=== PATIENT | male | born 1965 ===

== ENCOUNTER 2017-10-25 01:39 | Inpatient (IN) | payer SELFPAY ==
[2017-10-25] MEDS ORDERED: Sodium Chloride 0.9% 1,000 ML IV ONE (02:21)
--- NOTE | 2017-10-25 02:27 | C.PDOC ---
History Of Present Illness 52 year old male presents to the ED complaining of abdominal pain onset 2-3 days ago, worsening since onset. Associated with multiple episodes of non- bilious non-bloody vomiting. Pain is localized to the epigastrium, non- radiating. No fever, chills, or diarrhea. Patient states pain is consistent with previous episodes of pancreatitis, last episode was 3-4 years ago. He denies recent alcohol use. Time Seen by Provider: 10/25/17 02:02 Chief Complaint (Nursing): Abdominal Pain History Per: Patient History/Exam Limitations: no limitations Onset/Duration Of Symptoms: Hrs Current Symptoms Are (Timing): Still Present Severity: Moderate Location Of Pain/Discomfort: Epigastric Radiation Of Pain To:: None Quality Of Discomfort: "Pain" Past Medical History Reviewed: Historical Data, Nursing Documentation, Vital Signs Vital Signs: Last Vital Signs Temp 98 F 10/25/17 01:52 Pulse 74 10/25/17 06:18 Resp 20 10/25/17 06:18 BP 133/89 10/25/17 06:18 Pulse Ox 99 10/25/17 06:26 - Medical History PMH: No Chronic Diseases, Pancreatitis Surgical History: No Surg Hx Family History: States: No Known Family Hx - Social History Hx Tobacco Use: No Hx Alcohol Use: No (quit 9 years ago) Hx Substance Use: No - Immunization History Hx Tetanus Toxoid Vaccination: No Hx Influenza Vaccination: No Hx Pneumococcal Vaccination: No Review Of Systems Except As Marked, All Systems Reviewed And Found Negative. Constitutional: Negative for: Fever, Chills Gastrointestinal: Positive for: Vomiting, Abdominal Pain. Negative for: Diarrhea, Hematochezia Physical Exam - Physical Exam Appears: Non-toxic, No Acute Distress Skin: Warm, Dry, No Rash Head: Atraumatic, Normacephalic Eye(s): bilateral: Normal Inspection, PERRL, EOMI Oral Mucosa: Moist Neck: Normal ROM, Supple Chest: Symmetrical Cardiovascular: Rhythm Regular, No Friction Rub, No Murmur Respiratory: Normal Breath Sounds, No Accessory Muscle Use, No Wheezing Gastrointestinal/Abdominal: Bowel Sounds (active), Soft, Tenderness (mild diffuse tenderness), No Guarding, No Rebound Back: Normal Inspection, No CVA Tenderness Extremity: Normal ROM, No Swelling Extremity: Bilateral: Atraumatic, Normal Color And Temperature, Normal ROM Neurological/Psych: Oriented x3, Normal Speech, Normal Motor Gait: Steady ED Course And Treatment - Laboratory Results Result Diagrams: 10/25/17 02:36 10/25/17 02:36 O2 Sat by Pulse Oximetry: 99 (RA) Pulse Ox Interpretation: Normal - Radiology CXR: Interpreted by Me, Viewed By Me CXR Interpretation: Yes: No Acute Disease, Other (No free air). No: Infiltrates - CT Scan/US CT abdomen/pelvis Other Rad Studies (CT/US): Read By Radiologist, Radiology Report Reviewed CT/US Interpretation: FINDINGS: Patient motion is present limiting exam. The liver is normal. The spleen is normal. The pancreas is normal. No gallstones. Probable cortical defect in the lateral left kidney. Evaluation limited by patient motion artifact. There. is a 1 cm hypoattenuating lesion in the left kidney and a 1.2 x 1.7 cm exophytic low attenuation right. renal lesion, both of which likely represent cysts however lesion on the right is slightly greater in. attenuation suggesting possible complex internal components. Short-term followup ultrasound is. recommended. There is haziness along the inferior aspect of the pancreatic head and anterior to the duodenum as it. crosses midline partially due to patient motion artifact however concurrent pancreatitis or duodenitis. would be possible. Recommend correlation with clinical symptoms and correlation with pancreatic. enzymes. The urinary bladder wall is circumferentially thickened a least partially due to under distention. Recommend correlation with urinalysis to exclude cystitis if clinically indicated. No aortic aneurysm or dissection. The bowel appears normal. A normal appendix is identified coronal images 55 through 60. IMPRESSION: Haziness adjacent to the pancreatic head and the duodenum partially due to patient motion artifact. however concurrent pancreatitis or duodenitis would be possible. Recommend correlation with clinical. symptoms and correlation with pancreatic enzymes. Thank you for allowing us to participate in the care of your patient. Dictated and Authenticated by: Monika Hines MD. 10/25/2017 6:01 AM Eastern Time ([place] & [place]) Medical Decision Making Medical Decision Making: Old records reviewed, patient has no prior history of visits to [facility]. Time: 2:21 Plan: * CMP * CBC * Lipase * Chest x-ray * Morphine 4 mg IVP * NS IV fluids * Protonix 40 mg IVP * Zofran 4 mg IVP 4:00 CT abdomen/pelvis ordered CT findings discussed with patient. On reevaluation patient is still complaining of pain. Given 2nd dose IV Morphine. CT scan shows probable pancreatitis. 6:[address] Hunter, who accepts patient for admission for acute pancreatitis. Disposition Discussed With Dr.: Edgar Hunter Doctor Will See Patient In The: Hospital Counseled Patient/Family Regarding: Studies Performed, Diagnosis - Disposition Disposition: HOSPITALIZED Disposition Time: 06:22 Condition: STABLE - Clinical Impression Clinical Impression: Acute pancreatitis - PA / FAMILY CONSUMER SCIENTIST / Resident Statement MD/DO has reviewed & agrees with the documentation as recorded. - Scribe Statement The provider has reviewed the documentation as recorded by the Scribe (Sendy Butt) All medical record entries made by the Scribe were at my direction and personally dictated by me. I have reviewed the chart and agree that the record accurately reflects my personal performance of the history, physical exam, medical decision making, and the department course for this patient. I have also personally directed, reviewed, and agree with the discharge instructions and disposition. Decision To Admit - Pt Status Changed To: Hospital Disposition Of: Inpatient - Admit Certification Admit to Inpatient:: After my assessment, the patient will require hospitalization for at least two midnights. This is because of the severity of symptoms shown, intensity of services needed, and/or the medical risk in this patient being treated as an outpatient. - InPatient: Physician Admission Certification:: acute pancreatitis - . Bed Request Type: Regular Patient Diagnosis: Acute pancreatitis
[2017-10-25] MEDS ORDERED: Morphine 4 MG/ML VIAL ONE ×2 (02:39→06:18)
[2017-10-25] MEDS ORDERED: Sodium Chloride 0.9% 250 ML IV ONE (02:39)
[2017-10-25 02:53] LABS: ALB/GLOB RATIO 0.9 (1.0-2.1); ALBUMIN 4.3 g/dL (3.5-5.0); ALT/SGPT 59 U/L (21-72); AST/SGOT 62 U/L (17-59); BLOOD UREA NITROGEN 15 mg/dL (9-20); CALCIUM 8.6 mg/dl (8.6-10.4); GFR AFRICAN-AMERICAN > 60; GFR NON-AFRICAN AMERICAN > 60; LIPASE 479 U/L (23-300)
[2017-10-25 02:58] LABS: BASO # 0.1 K/uL (0.0-0.2); BASO % 0.6 % (0.0-2.0); EOS # 0.3 K/uL (0.0-0.7); EOS % 1.5 % (0.0-4.0); HEMOGLOBIN 14.4 g/dL (12.0-18.0); LYMPH # 1.9 K/uL (1.0-4.3); MEAN CELL VOLUME 90.3 fL (80.0-94.0); MEAN CORPUSCULAR HEMOGLOBIN 32.3 pg (27.0-31.0); MEAN CORPUSCULAR HGB CONC 35.8 g/dL (33.0-37.0); MEAN PLATELET VOLUME 7.9 fL (7.2-11.7); MONO # 0.8 K/uL (0.0-0.8); MONO % 4.4 % (0.0-10.0); NEUT # 15.5 K/uL (1.8-7.0); NEUT % 83.5 % (50.0-75.0); RBC 4.47 Mil/uL (4.40-5.90); WHITE BLOOD COUNT 18.6 K/uL (4.8-10.8)
[2017-10-25] MEDS ORDERED: Sodium Chloride 0.9% 1,000 ML ONE (03:15)
[2017-10-25] MEDS ORDERED: Iodixanol 320 MG/ML 100 ML BOTTLE IV ONE (04:52)
--- NOTE | 2017-10-25 06:02 | CT ---
EXAM: CT Abdomen and Pelvis With Intravenous Contrast EXAM DATE/TIME: 10/25/2017 4:06 AM CLINICAL HISTORY: 52 years old, male; Pain; Abdominal pain; Epigastric; Additional info: Epi pain, HX of pancreatitis TECHNIQUE: Axial computed tomography images of the abdomen and pelvis with intravenous contrast. All CT scans at this facility use one or more dose reduction techniques, viz.: automated exposure control; ma/kV adjustment per patient size (including targeted exams where dose is matched to indication; i.e. head); or iterative reconstruction technique. Coronal and sagittal reformatted images were created and reviewed. CONTRAST: 100 mL of [id number] administered intravenously. COMPARISON: No relevant prior studies available. FINDINGS: Patient motion is present limiting exam. The liver is normal. The spleen is normal. The pancreas is normal. No gallstones. Probable cortical defect in the lateral left kidney. Evaluation limited by patient motion artifact. There is a 1 cm hypoattenuating lesion in the left kidney and a 1.2 x 1.7 cm exophytic low attenuation right renal lesion, both of which likely represent cysts however lesion on the right is slightly greater in attenuation suggesting possible complex internal components. Short-term followup ultrasound is recommended. There is haziness along the inferior aspect of the pancreatic head and anterior to the duodenum as it crosses midline partially due to patient motion artifact however concurrent pancreatitis or duodenitis would be possible. Recommend correlation with clinical symptoms and correlation with pancreatic enzymes. The urinary bladder wall is circumferentially thickened a least partially due to under distention Recommend correlation with urinalysis to exclude cystitis if clinically indicated. No aortic aneurysm or dissection. The bowel appears normal. A normal appendix is identified coronal images 55 through 60. IMPRESSION: Haziness adjacent to the pancreatic head and the duodenum partially due to patient motion artifact however concurrent pancreatitis or duodenitis would be possible. Recommend correlation with clinical symptoms and correlation with pancreatic enzymes.
[2017-10-25 06:19] VITALS: RESP 20
[2017-10-25] MEDS ORDERED: Morphine 4 MG/ML VIAL IVP PRN ×2 (07:36→07:37)
[2017-10-25] MEDS ORDERED: Sodium Chloride 0.9% 1,000 ML IV SCH (07:45)
[2017-10-25] MEDS ORDERED: Lactated Ringer's 1,000 ML IV ONE (07:50)
--- NOTE | 2017-10-25 08:28 | RAD ---
Chest x-ray single frontal view History: Chest pain. Comparison: 10/26/2017 Findings: Mild venous congestion. Heart size within normal limits. Degenerative changes in the spine. Impression: Mild venous congestion.
--- NOTE | 2017-10-25 08:29 | CP.PCM.HP ---
<Grzegorz Donovan - Last Filed: 10/25/17 17:55> History of Present Illness - History of Present Illness History of Present Illness: Medicine H/P HPI: Patient is a 52M with a PMH of chronic pancreatitis and ETOH use in the remote past comes to the ED with a CC of abdominal pain. States the pain began yesterday in the late afternoon. States usually when he has this pain he is able top "ride it out" at home but this time the pain was too much so he came to the ED. The pain is diffuse in his abdomen and is associated with multiple episodes of nonbloody emesis. The pain does not radiate. No associated symptoms. Patient has several prior episode pof chronic pancreatitis. CT in the ED shows peripancreatic inflammation consistent with pancreatitis. PMH: Chronic pancreatitis PSH: remote history of hernia repair FH: unremarkable SH: Denies smoking, denies drinking, smokes marijuana occasionally Meds: None All: NKA Present on Admission - Present on Admission Any Indicators Present on Admission: No Past Patient History - Past Social History Smoking Status: Never Smoked - CARDIAC Hx Cardiac Disorders: No - PULMONARY Hx Respiratory Disorders: No - NEUROLOGICAL Hx Neurological Disorder: No - GASTROINTESTINAL Hx Pancreatitis: Yes - GENITOURINARY/GYNECOLOGICAL Hx Genitourinary Disorders: No - PSYCHIATRIC Hx Substance Use: No - SURGICAL HISTORY Hx Surgeries: No - ANESTHESIA Hx Anesthesia: No Meds Allergies/Adverse Reactions: Allergies Allergy/AdvReac Type Severity Reaction Status Date / Time No Known Allergies Allergy Verified 10/25/17 01:58 Physical Exam - Constitutional Appears: Well - Head Exam Head Exam: ATRAUMATIC, NORMAL INSPECTION, NORMOCEPHALIC - Eye Exam Eye Exam: EOMI, Normal appearance, PERRL Pupil Exam: NORMAL ACCOMODATION, PERRL - ENT Exam ENT Exam: Mucous Membranes Moist, Normal Exam - Neck Exam Neck exam: Positive for: Normal Inspection - Respiratory Exam Respiratory Exam: Clear to Auscultation Bilateral, NORMAL BREATHING PATTERN - Cardiovascular Exam Cardiovascular Exam: REGULAR RHYTHM - GI/Abdominal Exam GI & Abdominal Exam: Normal Bowel Sounds, Soft, Tenderness (diffuse tenderness to deep palpaption) - Extremities Exam Extremities exam: Positive for: normal inspection - Back Exam Back exam: NORMAL INSPECTION - Neurological Exam Neurological exam: Alert, CN II-XII Intact, Normal Gait, Oriented x3, Reflexes Normal - Psychiatric Exam Psychiatric exam: Normal Affect, Normal Mood - Skin Skin Exam: Dry, Intact, Normal Color, Warm Results - Vital Signs Recent Vital Signs: Last Vital Signs Temp 97.7 F 10/25/17 07:30 Pulse 60 10/25/17 07:30 Resp 20 10/25/17 07:30 BP 104/70 10/25/17 07:30 Pulse Ox 97 10/25/17 07:30 - Labs Result Diagrams: 10/25/17 02:36 10/25/17 02:36 Labs: Laboratory Results - last 24 hr 10/25/17 10/25/17 02:36 02:36 WBC 18.6 H RBC 4.47 Hgb 14.4 Hct 40.4 MCV 90.3 MCH 32.3 H MCHC 35.8 RDW 13.0 Plt Count 315 MPV 7.9 Neut % (Auto) 83.5 H Lymph % (Auto) 10.0 L Power % (Auto) 4.4 Eos % (Auto) 1.5 Baso % (Auto) 0.6 Neut # (Auto) 15.5 H Lymph # (Auto) 1.9 Power # (Auto) 0.8 Eos # (Auto) 0.3 Baso # (Auto) 0.1 Sodium 141 Potassium 5.1 Chloride 106 Carbon Dioxide 19 L Anion Gap 21 H BUN 15 Creatinine 1.0 Est GFR ( Amer) > 60 Est GFR (Non-Af Amer) > 60 Random Glucose 109 Calcium 8.6 Total Bilirubin 1.5 H AST 62 H ALT 59 Alkaline Phosphatase 110 Total Protein 9.2 H Albumin 4.3 Globulin 4.9 H Albumin/Globulin Ratio 0.9 L Lipase 479 H Assessment & Plan (1) Acute pancreatitis Assessment and Plan: LR @ 250 NPO Refuses RUQ US F/U Lipid panel Denies ETOH Use Morphine for pain control trend lipase Status: Acute Priority: Medium (2) Prophylactic measure Assessment and Plan: GI ppx not indicated SCD Lovenox 30 Q12 Status: Acute <Gilles Tomlinson - Last Filed: 10/26/17 19:13> Results - Vital Signs Recent Vital Signs: Last Vital Signs Temp 98.2 F 10/26/17 15:00 Pulse 66 10/26/17 15:00 Resp 20 10/26/17 15:00 BP 116/72 10/26/17 15:00 Pulse Ox 98 10/26/17 15:00 - Labs Result Diagrams: 10/26/17 07:03 10/26/17 07:03 Labs: Laboratory Results - last 24 hr 10/26/17 10/26/17 10/26/17 07:03 07:03 07:03 WBC 11.8 H RBC 3.99 L Hgb 12.5 Hct 36.0 MCV 90.1 MCH 31.4 H MCHC 34.8 RDW 12.9 Plt Count 275 MPV 7.5 Neut % (Auto) 70.6 Lymph % (Auto) 20.2 Power % (Auto) 6.2 Eos % (Auto) 2.8 Baso % (Auto) 0.2 Neut # (Auto) 8.4 H Lymph # (Auto) 2.4 Power # (Auto) 0.7 Eos # (Auto) 0.3 Baso # (Auto) 0.0 Sodium 139 Potassium 3.7 Chloride 104 Carbon Dioxide 22 Anion Gap 16 BUN 9 Creatinine 0.9 Est GFR ( Amer) > 60 Est GFR (Non-Af Amer) > 60 POC Glucose (mg/dL) Random Glucose 96 Hemoglobin A1c 4.9 Calcium 8.5 L Phosphorus 2.9 Magnesium 1.8 Total Bilirubin 1.0 AST 30 ALT 40 Alkaline Phosphatase 94 Total Protein 6.7 Albumin 3.5 Globulin 3.3 Albumin/Globulin Ratio 1.1 Amylase 128 H Lipase 267 TSH 3rd Generation 1.91 Alcohol, Quantitative < 10 10/26/17 11:14 WBC RBC Hgb Hct MCV MCH MCHC RDW Plt Count MPV Neut % (Auto) Lymph % (Auto) Power % (Auto) Eos % (Auto) Baso % (Auto) Neut # (Auto) Lymph # (Auto) Power # (Auto) Eos # (Auto) Baso # (Auto) Sodium Potassium Chloride Carbon Dioxide Anion Gap BUN Creatinine Est GFR ( Amer) Est GFR (Non-Af Amer) POC Glucose (mg/dL) 88 Random Glucose Hemoglobin A1c Calcium Phosphorus Magnesium Total Bilirubin AST ALT Alkaline Phosphatase Total Protein Albumin Globulin Albumin/Globulin Ratio Amylase Lipase TSH 3rd Generation Alcohol, Quantitative Attending/Attestation - Attestation I have personally seen and examined this patient.: Yes I have fully participated in the care of the patient.: Yes I have reviewed all pertinent clinical information: Yes Notes (Text): Patient was seen and examined Patient relates his pancreatitis due to too much fatty food. History of alcohol use. He states that he stop drinking alcohol. Refuses US. Refuses further work up,"I will be ok,I was doing good last 4 years after his last pancreatitis." He wants to try food and go home when his pain is better.He doesn't want to see GI.He will not go for EGD Discussed about following at medical clinic and get GI evaluation I agree with the recommendation of the resident documentation of the assessment and the plan
[2017-10-25 10:10] LABS: HDL CHOLESTEROL 37 mg/dL (30-70)
[2017-10-25 10:20] LABS: LDL CHOLESTEROL 30 mg/dL (0-129)
[2017-10-25] MEDS: Lactated Ringer's 1,000 ML IV SCH ×4 (10:57→20:00)
[2017-10-25] MEDS: Enoxaparin 30 mg Syringe SC SCH ×2 (10:58→22:16)
[2017-10-25 14:45] LABS: HEPATITIS B SURFACE AG Negative (NEGATIVE)
[2017-10-25 14:52] LABS: HEPATITIS A IGM NEGATIVE (NEGATIVE); HEPATITIS B CORE AB NEGATIVE (NEGATIVE)
[2017-10-25 15:02] LABS: HEPATITIS C ANTIBODY NEGATIVE (NEGATIVE)
[2017-10-26] MEDS: Lactated Ringer's 1,000 ML IV SCH ×3 (00:30→08:00)
[2017-10-26 07:37] LABS: BASO % 0.2 % (0.0-2.0); EOS # 0.3 K/uL (0.0-0.7); EOS % 2.8 % (0.0-4.0); LYMPH # 2.4 K/uL (1.0-4.3); LYMPH % 20.2 % (20.0-40.0); MEAN CELL VOLUME 90.1 fL (80.0-94.0); MEAN CORPUSCULAR HEMOGLOBIN 31.4 pg (27.0-31.0); MEAN CORPUSCULAR HGB CONC 34.8 g/dL (33.0-37.0); MEAN PLATELET VOLUME 7.5 fL (7.2-11.7); MONO # 0.7 K/uL (0.0-0.8); MONO % 6.2 % (0.0-10.0); NEUT # 8.4 K/uL (1.8-7.0); NEUT % 70.6 % (50.0-75.0); NRBC % 0.1 % (0.0-2.0); RBC 3.99 Mil/uL (4.40-5.90); RED CELL DISTRIBUTION WIDTH 12.9 % (11.5-14.5); WHITE BLOOD COUNT 11.8 K/uL (4.8-10.8)
[2017-10-26 07:40] LABS: HEMOGLOBIN 12.5 g/dL (12.0-18.0)
[2017-10-26 07:41] LABS: ALB/GLOB RATIO 1.1 (1.0-2.1); ALBUMIN 3.5 g/dL (3.5-5.0); ALT/SGPT 40 U/L (21-72); AMYLASE 128 U/L (30-110); AST/SGOT 30 U/L (17-59); BLOOD UREA NITROGEN 9 mg/dL (9-20); CALCIUM 8.5 mg/dl (8.6-10.4); GFR AFRICAN-AMERICAN > 60; GFR NON-AFRICAN AMERICAN > 60; LIPASE 267 U/L (23-300)
[2017-10-26] MEDS ORDERED: Lactated Ringer's 1,000 ML IV SCH (09:23)
[2017-10-26] MEDS: Enoxaparin 30 mg Syringe SC SCH (10:41)
--- NOTE | 2017-10-26 12:58 | CP.PCM.DIS ---
<Grzegorz Donovan - Last Filed: 10/26/17 13:14> Provider - Provider Date of Admission: 10/25/17 06:21 Attending physician: Edgar Hunter MD Primary care physician: Clinic Consults: None Time Spent in preparation of Discharge (in minutes): 45 Diagnosis - Discharge Diagnosis (1) Acute pancreatitis Status: Resolved Priority: Medium (2) Prophylactic measure Status: Acute Hospital Course - Lab Results Lab Results: Most Recent Lab Values WBC 11.8 K/uL (4.8-10.8) H 10/26/17 07:03 RBC 3.99 Mil/uL (4.40-5.90) L 10/26/17 07:03 Hgb 12.5 g/dL (12.0-18.0) 10/26/17 07:03 Hct 36.0 % (35.0-51.0) 10/26/17 07:03 MCV 90.1 fL (80.0-94.0) 10/26/17 07:03 MCH 31.4 pg (27.0-31.0) H 10/26/17 07:03 MCHC 34.8 g/dL (33.0-37.0) 10/26/17 07:03 RDW 12.9 % (11.5-14.5) 10/26/17 07:03 Plt Count 275 K/uL (130-400) 10/26/17 07:03 MPV 7.5 fL (7.2-11.7) 10/26/17 07:03 Neut % (Auto) 70.6 % (50.0-75.0) 10/26/17 07:03 Lymph % (Auto) 20.2 % (20.0-40.0) 10/26/17 07:03 [place] % (Auto) 6.2 % (0.0-10.0) 10/26/17 07:03 Eos % (Auto) 2.8 % (0.0-4.0) 10/26/17 07:03 Baso % (Auto) 0.2 % (0.0-2.0) 10/26/17 07:03 Neut # (Auto) 8.4 K/uL (1.8-7.0) H 10/26/17 07:03 Lymph # (Auto) 2.4 K/uL (1.0-4.3) 10/26/17 07:03 [place] # (Auto) 0.7 K/uL (0.0-0.8) 10/26/17 07:03 Eos # (Auto) 0.3 K/uL (0.0-0.7) 10/26/17 07:03 Baso # (Auto) 0.0 K/uL (0.0-0.2) 10/26/17 07:03 Sodium 139 mmol/L (132-148) 10/26/17 07:03 Potassium 3.7 mmol/L (3.6-5.2) 10/26/17 07:03 Chloride 104 mmol/L (98-107) 10/26/17 07:03 Carbon Dioxide 22 mmol/L (22-30) 10/26/17 07:03 Anion Gap 16 (10-20) 10/26/17 07:03 BUN 9 mg/dL (9-20) 10/26/17 07:03 Creatinine 0.9 mg/dL (0.8-1.5) 10/26/17 07:03 Est GFR ( Amer) > 60 10/26/17 07:03 Est GFR (Non-Af Amer) > 60 10/26/17 07:03 POC Glucose (mg/dL) 88 mg/dL (65-110) 10/26/17 11:14 Random Glucose 96 mg/dL (75-110) 10/26/17 07:03 Hemoglobin A1c 4.9 % (4.2-6.5) 10/26/17 07:03 Calcium 8.5 mg/dl (8.6-10.4) L 10/26/17 07:03 Phosphorus 2.9 mg/dL (2.5-4.5) 10/26/17 07:03 Magnesium 1.8 mg/dL (1.6-2.3) 10/26/17 07:03 Total Bilirubin 1.0 mg/dL (0.2-1.3) 10/26/17 07:03 AST 30 U/L (17-59) 10/26/17 07:03 ALT 40 U/L (21-72) 10/26/17 07:03 Alkaline Phosphatase 94 U/L (38-126) 10/26/17 07:03 Lactate Dehydrogenase 978 U/L (313-618) H 10/25/17 02:36 Total Protein 6.7 g/dL (6.3-8.3) 10/26/17 07:03 Albumin 3.5 g/dL (3.5-5.0) 10/26/17 07:03 Globulin 3.3 gm/dL (2.2-3.9) 10/26/17 07:03 Albumin/Globulin Ratio 1.1 (1.0-2.1) 10/26/17 07:03 Triglycerides 2324 mg/dL (0-149) H 10/25/17 02:36 Cholesterol 318 mg/dL (0-199) H 10/25/17 02:36 LDL Cholesterol Direct 30 mg/dL (0-129) 10/25/17 02:36 HDL Cholesterol 37 mg/dL (30-70) 10/25/17 02:36 Amylase 128 U/L (30-110) H 10/26/17 07:03 Lipase 267 U/L (23-300) 10/26/17 07:03 TSH 3rd Generation 1.91 mIU/L (0.46-4.68) 10/26/17 07:03 Alcohol, Quantitative < 10 mg/dl (0-10) 10/26/17 07:03 Hepatitis A IgM Ab Negative (NEGATIVE) 10/25/17 13:50 Hep Bs Antigen Negative (NEGATIVE) 10/25/17 13:50 Hep B Core IgM Ab Negative (NEGATIVE) 10/25/17 13:50 Hepatitis C Antibody Negative (NEGATIVE) 10/25/17 13:50 - Hospital Course Hospital Course: Patient is a 52M with a PMH of chronic pancreatitis and ETOH use in the remote past comes to the ED with a CC of abdominal pain. States the pain began yesterday in the late afternoon. States usually when he has this pain he is able top "ride it out" at home but this time the pain was too much so he came to the ED. The pain is diffuse in his abdomen and is associated with multiple episodes of nonbloody emesis. The pain does not radiate. No associated symptoms. Patient has several prior episode pof chronic pancreatitis. CT in the ED shows peripancreatic inflammation consistent with pancreatitis. Patient was started on fluids and kept NPO. Patient started on CLD for which he tolerated well. Patient refused ultrasound of the RUQ. Patient instructed to follow up in clinic for LFTS, and GI referral for pancreatitis. The remainder of his stay was uncomplicated. He denies any smoking, drinking. Discharge Exam - Head Exam Head Exam: ATRAUMATIC, NORMAL INSPECTION, NORMOCEPHALIC - Eye Exam Eye Exam: EOMI, Normal appearance, PERRL Pupil Exam: NORMAL ACCOMODATION, PERRL - GI/Abdominal Exam GI & Abdominal Exam: Normal Bowel Sounds - Neurological Exam Neurological exam: Alert, CN II-XII Intact, Normal Gait, Oriented x3, Reflexes Normal - Psychiatric Exam Psychiatric exam: Normal Affect, Normal Mood - Skin Skin Exam: Dry, Intact, Normal Color, Warm Discharge Plan - Follow Up Plan Condition: STABLE Disposition: HOME/ ROUTINE Instructions: Pancreatitis (DC) Additional Instructions: Please follow up in our clinic in 7-10 days for LFTs, GI referral for Pancreatits. I have attached the information for the clinic. Please call to make an appointment. Please come back to the ED if symptoms return Referrals: [facility] [Outside] <Gilles Tomlinson - Last Filed: 10/26/17 19:15> Provider - Provider Date of Admission: 10/25/17 06:21 Attending physician: Edgar Hunter MD Hospital Course - Lab Results Lab Results: Most Recent Lab Values WBC 11.8 K/uL (4.8-10.8) H 10/26/17 07:03 RBC 3.99 Mil/uL (4.40-5.90) L 10/26/17 07:03 Hgb 12.5 g/dL (12.0-18.0) 10/26/17 07:03 Hct 36.0 % (35.0-51.0) 10/26/17 07:03 MCV 90.1 fL (80.0-94.0) 10/26/17 07:03 MCH 31.4 pg (27.0-31.0) H 10/26/17 07:03 MCHC 34.8 g/dL (33.0-37.0) 10/26/17 07:03 RDW 12.9 % (11.5-14.5) 10/26/17 07:03 Plt Count 275 K/uL (130-400) 10/26/17 07:03 MPV 7.5 fL (7.2-11.7) 10/26/17 07:03 Neut % (Auto) 70.6 % (50.0-75.0) 10/26/17 07:03 Lymph % (Auto) 20.2 % (20.0-40.0) 10/26/17 07:03 [place] % (Auto) 6.2 % (0.0-10.0) 10/26/17 07:03 Eos % (Auto) 2.8 % (0.0-4.0) 10/26/17 07:03 Baso % (Auto) 0.2 % (0.0-2.0) 10/26/17 07:03 Neut # (Auto) 8.4 K/uL (1.8-7.0) H 10/26/17 07:03 Lymph # (Auto) 2.4 K/uL (1.0-4.3) 10/26/17 07:03 [place] # (Auto) 0.7 K/uL (0.0-0.8) 10/26/17 07:03 Eos # (Auto) 0.3 K/uL (0.0-0.7) 10/26/17 07:03 Baso # (Auto) 0.0 K/uL (0.0-0.2) 10/26/17 07:03 Sodium 139 mmol/L (132-148) 10/26/17 07:03 Potassium 3.7 mmol/L (3.6-5.2) 10/26/17 07:03 Chloride 104 mmol/L (98-107) 10/26/17 07:03 Carbon Dioxide 22 mmol/L (22-30) 10/26/17 07:03 Anion Gap 16 (10-20) 10/26/17 07:03 BUN 9 mg/dL (9-20) 10/26/17 07:03 Creatinine 0.9 mg/dL (0.8-1.5) 10/26/17 07:03 Est GFR ( Amer) > 60 10/26/17 07:03 Est GFR (Non-Af Amer) > 60 10/26/17 07:03 POC Glucose (mg/dL) 88 mg/dL (65-110) 10/26/17 11:14 Random Glucose 96 mg/dL (75-110) 10/26/17 07:03 Hemoglobin A1c 4.9 % (4.2-6.5) 10/26/17 07:03 Calcium 8.5 mg/dl (8.6-10.4) L 10/26/17 07:03 Phosphorus 2.9 mg/dL (2.5-4.5) 10/26/17 07:03 Magnesium 1.8 mg/dL (1.6-2.3) 10/26/17 07:03 Total Bilirubin 1.0 mg/dL (0.2-1.3) 10/26/17 07:03 AST 30 U/L (17-59) 10/26/17 07:03 ALT 40 U/L (21-72) 10/26/17 07:03 Alkaline Phosphatase 94 U/L (38-126) 10/26/17 07:03 Lactate Dehydrogenase 978 U/L (313-618) H 10/25/17 02:36 Total Protein 6.7 g/dL (6.3-8.3) 10/26/17 07:03 Albumin 3.5 g/dL (3.5-5.0) 10/26/17 07:03 Globulin 3.3 gm/dL (2.2-3.9) 10/26/17 07:03 Albumin/Globulin Ratio 1.1 (1.0-2.1) 10/26/17 07:03 Triglycerides 2324 mg/dL (0-149) H 10/25/17 02:36 Cholesterol 318 mg/dL (0-199) H 10/25/17 02:36 LDL Cholesterol Direct 30 mg/dL (0-129) 10/25/17 02:36 HDL Cholesterol 37 mg/dL (30-70) 10/25/17 02:36 Amylase 128 U/L (30-110) H 10/26/17 07:03 Lipase 267 U/L (23-300) 10/26/17 07:03 TSH 3rd Generation 1.91 mIU/L (0.46-4.68) 10/26/17 07:03 Alcohol, Quantitative < 10 mg/dl (0-10) 10/26/17 07:03 Hepatitis A IgM Ab Negative (NEGATIVE) 10/25/17 13:50 Hep Bs Antigen Negative (NEGATIVE) 10/25/17 13:50 Hep B Core IgM Ab Negative (NEGATIVE) 10/25/17 13:50 Hepatitis C Antibody Negative (NEGATIVE) 10/25/17 13:50 Attending/Attestation - Attestation I have personally seen and examined this patient.: Yes I have fully participated in the care of the patient.: Yes I have reviewed all pertinent clinical information, including history, physical exam and plan: Yes Notes (Text): Seen and examined patient feels better. He refuses further test. Refuses clinic follow up or GI work up. Tolerates diet D/C home. Discussed about low fat diet 10/26/17 19:13
[2017-10-26 16:58] VITALS: BP 116/72; PULSE 66; TEMP 98.2; O2SAT 98
== END 2017-10-26 17:30 | disposition home or self-care (01) | DRG 440 ==
LOC: C.ER 01:39 → C.3T 06:21 → UNDODISIN 10-26 17:30
PROVIDERS: ADMIT Internal Medicine; ATTEND Internal Medicine
DX: K86.1 Other chronic pancreatitis (principal); F10.10 Alcohol abuse, uncomplicated; Y90.0 Blood alcohol level of less than 20 mg/100 ml

== ENCOUNTER 2017-12-07 05:49 | Inpatient (IN) | payer MEDICAID ==
[2017-12-07] MEDS ORDERED: Sodium Chloride 0.9% 1,000 ML IV ONE ×2 (06:14→10:13)
--- NOTE | 2017-12-07 06:34 | C.PDOC ---
History Of Present Illness 52 year old male presents to the ED with c/o abdominal pain which started this morning associated with multiple episodes of non-bilious non-bloody vomiting. Pain is localized to the epigastrium, non-radiating. No fever, chills, or diarrhea. Patient states pain is consistent with previous episodes of pancreatitis, last episode was3 weeks ago. He denies recent alcohol use Time Seen by Provider: 12/07/17 06:13 Chief Complaint (Nursing): Abdominal Pain History Per: Patient Current Symptoms Are (Timing): Still Present Severity: Moderate Location Of Pain/Discomfort: Epigastric Radiation Of Pain To:: None Associated Symptoms: denies: Fever, Diarrhea, Back Pain, Chest Pain, Constipation, Urinary Symptoms Alleviating Factors: None Recent travel outside of the [place]: No Past Medical History Vital Signs: Last Vital Signs Temp 97.8 F 12/07/17 05:58 Pulse 70 12/07/17 05:58 Resp 16 12/07/17 05:58 BP 178/97 H 12/07/17 05:58 Pulse Ox 100 12/07/17 06:38 - Medical History PMH: Pancreatitis Family History: States: Unknown Family Hx - Social History Hx Tobacco Use: No Hx Alcohol Use: No Hx Substance Use: No - Immunization History Hx Tetanus Toxoid Vaccination: No Hx Influenza Vaccination: No Hx Pneumococcal Vaccination: No Review Of Systems Constitutional: Negative for: Fever, Chills Cardiovascular: Negative for: Chest Pain Respiratory: Negative for: Shortness of Breath Gastrointestinal: Positive for: Vomiting, Abdominal Pain Physical Exam - Physical Exam Appears: Well, Non-toxic Head: Atraumatic Eye(s): bilateral: Normal Inspection, PERRL Oral Mucosa: Moist Chest: Symmetrical Cardiovascular: Rhythm Regular Respiratory: Normal Breath Sounds, No Wheezing Gastrointestinal/Abdominal: Normal Exam, Bowel Sounds, Soft, Tenderness ( epigastric and LUQ), No Distention, No Guarding, No Rebound, No Ascites Back: Normal Inspection, No CVA Tenderness Neurological/Psych: Oriented x3 ED Course And Treatment O2 Sat by Pulse Oximetry: 100 Progress Note: Labs,IVF, reglan and toradol IV ordered Disposition - Disposition Disposition Time: 06:37 Condition: GOOD Forms: [facility] (Gabonese) - Clinical Impression Clinical Impression: Abdominal pain Physician Patient Turnover Patient Signed Over To: Chiqui Zhao Handoff Comments: pending labs and abd CT and reeval for dispo
[2017-12-07] MEDS ORDERED: Sodium Chloride 0.9% 1,000 ML ONE ×2 (06:42→10:39)
[2017-12-07] MEDS ORDERED: Sodium Chloride 0.9% 250 ML IV ONE (06:42)
[2017-12-07 06:47] LABS: BASO # 0.2 K/uL (0.0-0.2); EOS # 0.5 K/uL (0.0-0.7); EOS % 2.7 % (0.0-4.0); LYMPH # 2.6 K/uL (1.0-4.3); LYMPH % 12.8 % (20.0-40.0); MEAN CELL VOLUME 88.6 fL (80.0-94.0); MEAN CORPUSCULAR HEMOGLOBIN 33.6 pg (27.0-31.0); MEAN CORPUSCULAR HGB CONC 37.9 g/dL (33.0-37.0); MEAN PLATELET VOLUME 7.3 fL (7.2-11.7); NEUT # 16.1 K/uL (1.8-7.0); NEUT % 78.5 % (50.0-75.0); NRBC % 0.1 % (0.0-2.0); RBC 4.5 Mil/uL (4.40-5.90); RED CELL DISTRIBUTION WIDTH 13.1 % (11.5-14.5); WHITE BLOOD COUNT 20.5 K/uL (4.8-10.8)
[2017-12-07 07:03] LABS: HEMOGLOBIN 15.1 g/dL (12.0-18.0)
[2017-12-07 07:05] LABS: URINE BACTERIA RARE (<OCC); URINE BILIRUBIN NEGATIVE (NEGATIVE); URINE BLOOD 1+ (NEGATIVE); URINE CLARITY Hazy (Clear); URINE COLOR Yellow (YELLOW); URINE GLUCOSE (UA) NORMAL (Normal); URINE LEUKOCYTE ESTERASE NEG Leu/uL (Negative); URINE PROTEIN 2+ mg/dL (NEGATIVE); URINE UROBILINOGEN NORMAL mg/dL (0.2-1.0)
[2017-12-07 07:10] LABS: ALB/GLOB RATIO 0.9 (1.0-2.1); ALBUMIN 4.4 g/dL (3.5-5.0); ALT/SGPT 35 U/L (21-72); AST/SGOT 37 U/L (17-59); BLOOD UREA NITROGEN 13 mg/dL (9-20); CALCIUM 8.9 mg/dl (8.6-10.4); GFR AFRICAN-AMERICAN > 60; GFR NON-AFRICAN AMERICAN > 60
[2017-12-07] MEDS ORDERED: Iodixanol 320 MG/ML 100 ML BOTTLE IV ONE (07:53)
[2017-12-07] MEDS ORDERED: Morphine 4 MG/ML VIAL ONE (08:20)
--- NOTE | 2017-12-07 09:28 | CT ---
PROCEDURE: CT Abdomen and Pelvis with contrast HISTORY: epig pain, vomiting, r/o pancreatitis COMPARISON: 10/25/2017 TECHNIQUE: Contrast dose: 100 mL Visipaque 320 Radiation dose: Total exam DLP = 667.13 mGy-cm. This CT exam was performed using one or more of the following dose reduction techniques: Automated exposure control, adjustment of the mA and/or kV according to patient size, and/or use of iterative reconstruction technique. FINDINGS: LOWER THORAX: Mild bilateral dependent atelectasis in the lower lobes. LIVER: Unremarkable. No gross lesion or ductal dilatation. GALLBLADDER AND BILE DUCTS: Unremarkable. PANCREAS: Peripancreatic fluid/ edema consistent with acute pancreatitis. No pancreatic mass. No pancreatic ductal dilatation. No discrete peripancreatic fluid collection. SPLEEN: Unremarkable. ADRENALS: Unremarkable. No mass. KIDNEYS AND URETERS: Bilateral renal cortical cysts. 1.8 cm lower pole right kidney. 1.2 cm and 10 mm lower pole left kidney. No renal calculus. No hydronephrosis. VASCULATURE: Unremarkable. No aortic aneurysm. BOWEL: Unremarkable. No obstruction. No gross mural thickening. APPENDIX: Normal appendix. PERITONEUM: Unremarkable. No free fluid. No free air. LYMPH NODES: Unremarkable. No enlarged lymph nodes. BLADDER: Unremarkable. REPRODUCTIVE: Normal prostate BONES: No acute fracture. OTHER FINDINGS: None. IMPRESSION: Findings consistent with mild acute uncomplicated pancreatitis. Cannot evaluate for pancreatic necrosis in the absence of arterial phase and images of the pancreas. Incidental small bilateral renal cortical cysts. Otherwise unremarkable.
[2017-12-07] MEDS ORDERED: HYDROmorphone 1 mg/ml ISec IVP STA (10:14)
--- NOTE | 2017-12-07 10:27 | CP.PCM.HP ---
Addendum entered and electronically signed by Brigid Wade DO 12/08/17 07:01: of note, patient had high triglycerides (2,000s) on admission last time. Patient was advised to change diet Original Note: <Brigid Wade - Last Filed: 12/07/17 10:57> History of Present Illness - History of Present Illness History of Present Illness: CC: abdominal pain and vomiting HPI: 52 year old male presents to the ED with c/o abdominal pain which started this morning associated with multiple episodes of non-bilious non-bloody vomiting. Pain is localized to mid-epigastric area without radiation or rebound tenderness. Patient had been hospitalized for acute pancreatitis 3 weeks ago. In ED patient had CT abdomen/pelvis showing mild pancreatitis. PMH: Chronic pancreatitis PSH: history of hernia repair FH: non-contributory SH: Denies smoking, denies ETOH use, admits to marijuana use Meds: None All: NKDA Present on Admission - Present on Admission Any Indicators Present on Admission: No History of DVT/PE: No History of Uncontrolled Diabetes: No Urinary Catheter: No Decubitus Ulcer Present: No Review of Systems - Review of Systems All systems: reviewed and no additional remarkable complaints except - Constitutional Constitutional: absent: Malaise, Night Sweats, Weight Gain, Weight Loss - EENT Eyes: absent: Blurred Vision, Change in Vision, Other Visual Disturbances Nose/Mouth/Throat: absent: Epistaxis, Nasal Congestion, Nasal Discharge, Mouth Lesions - Cardiovascular Cardiovascular: absent: Chest Pain, Chest Pain at Rest, Chest Pain with Activity - Respiratory Respiratory: absent: Cough, Dyspnea, Dyspnea on Exertion, Chest Congestion - Gastrointestinal Gastrointestinal: Abdominal Pain (midepigastric), Vomiting (nonbloody, nonbilious). absent: Belching, Bloating, Change in Bowel Habits, Cramping, Diarrhea, Temesmus Past Patient History - Past Medical History & Family History Past Medical History?: Yes - Past Social History Smoking Status: Never Smoked - CARDIAC Hx Cardiac Disorders: No - PULMONARY Hx Respiratory Disorders: No - NEUROLOGICAL Hx Neurological Disorder: No - INTEGUMENTARY Hx Dermatological Problems: No - MUSCULOSKELETAL/RHEUMATOLOGICAL Hx Musculoskeletal Disorders: No Hx Falls: No - GASTROINTESTINAL Hx Pancreatitis: Yes - GENITOURINARY/GYNECOLOGICAL Hx Genitourinary Disorders: No - PSYCHIATRIC Hx Substance Use: No - SURGICAL HISTORY Hx Surgeries: No - ANESTHESIA Hx Anesthesia: No Meds Allergies/Adverse Reactions: Allergies Allergy/AdvReac Type Severity Reaction Status Date / Time No Known Allergies Allergy Verified 12/07/17 06:00 Physical Exam - Constitutional Appears: Non-toxic, No Acute Distress, Agitated - Head Exam Head Exam: NORMAL INSPECTION, NORMOCEPHALIC - Eye Exam Eye Exam: EOMI, Normal appearance Pupil Exam: NORMAL ACCOMODATION, PERRL - ENT Exam ENT Exam: Mucous Membranes Moist, Normal Exam - Neck Exam Neck exam: Positive for: Normal Inspection - Respiratory Exam Respiratory Exam: Clear to Auscultation Bilateral, NORMAL BREATHING PATTERN - Cardiovascular Exam Cardiovascular Exam: REGULAR RHYTHM, +S1, +S2. absent: Bradycardia, Tachycardia - GI/Abdominal Exam GI & Abdominal Exam: Normal Bowel Sounds, Soft. absent: Distended, Firm, Guarding, Tenderness Additional comments: Patient admits to mid-epigastric tenderness. no tenderness illicited on physical exam - Neurological Exam Neurological exam: Alert, CN II-XII Intact, Oriented x3 - Psychiatric Exam Psychiatric exam: Normal Affect, Normal Mood - Skin Skin Exam: Dry, Intact, Normal Color, Warm Results - Vital Signs Recent Vital Signs: Last Vital Signs Temp 98 F 12/07/17 10:01 Pulse 54 L 12/07/17 10:01 Resp 14 12/07/17 10:01 BP 160/72 H 12/07/17 10:01 Pulse Ox 97 12/07/17 10:01 - Labs Result Diagrams: 12/07/17 06:42 12/07/17 06:42 Labs: Laboratory Results - last 24 hr 12/07/17 12/07/17 12/07/17 06:42 06:42 06:47 WBC 20.5 H D RBC 4.50 Hgb 15.1 D Hct 39.9 MCV 88.6 MCH 33.6 H MCHC 37.9 H RDW 13.1 Plt Count 363 MPV 7.3 Neut % (Auto) 78.5 H Lymph % (Auto) 12.8 L Moody % (Auto) 5.0 Eos % (Auto) 2.7 Baso % (Auto) 1.0 Neut # (Auto) 16.1 H Lymph # (Auto) 2.6 Moody # (Auto) 1.0 H Eos # (Auto) 0.5 Baso # (Auto) 0.2 Sodium 141 Potassium 3.9 Chloride 107 Carbon Dioxide 19 L Anion Gap 19 BUN 13 Creatinine 1.0 Est GFR ( Amer) > 60 Est GFR (Non-Af Amer) > 60 Random Glucose 130 H Calcium 8.9 Total Bilirubin 1.1 AST 37 ALT 35 Alkaline Phosphatase 140 H D Total Protein 9.1 H Albumin 4.4 Globulin 4.7 H Albumin/Globulin Ratio 0.9 L Lipase 5077 H Urine Color Yellow Urine Clarity Hazy Urine pH 5.0 Ur Specific [place] 1.023 Urine Protein 2+ H Urine Glucose (UA) Normal Urine Ketones Negative Urine Blood 1+ H Urine Nitrate Negative Urine Bilirubin Negative Urine Urobilinogen Normal Ur Leukocyte Esterase Neg Urine WBC (Auto) 1 Urine RBC (Auto) 2 Urine Bacteria Rare Assessment & Plan - Assessment and Plan (Free Text) Assessment: 52M with history of chronic pancreatitis presents with nausea, vomiting was found to have pancreatitis. Acute pancreatitis, history of chronic pancreatitis Diet: NPO CT abdomen/pelvis: mild acute uncomplicated pancreatitis f/u abdominal US Lipase 5,077 Leukocytosis 20.5 Lactate dehydrogenase 650 ALP 140 f/u blood culture monitor Vitals GI consult: Dr. Churchill Toradol 15 mg IVP Q6H PRN Pain moderate Toradol 30mg IVP Q6H PRN Pain severe Prophylaxis SCD, patient can ambulate Protonix 40mg IVP QD discussed with Dr. Davi Wade DO PGY1 - Date & Time Date: 12/07/17 Time: 10:27 <Gilles Tomlinson - Last Filed: 12/09/17 17:24> Results - Vital Signs Recent Vital Signs: Last Vital Signs Temp 98.0 F 12/08/17 07:00 Pulse 65 12/08/17 09:40 Resp 20 12/08/17 07:00 BP 132/69 12/08/17 09:40 Pulse Ox 96 12/08/17 07:00 - Labs Result Diagrams: 12/09/17 08:25 12/09/17 08:25 Labs: Laboratory Results - last 24 hr 12/08/17 12/08/17 08:12 08:12 WBC 18.8 H RBC 5.03 Hgb 15.6 Hct 45.7 MCV 90.8 D MCH 31.0 MCHC 34.1 RDW 13.4 Plt Count 354 MPV 7.9 Neut % (Auto) 90.0 H Lymph % (Auto) 6.2 L Moody % (Auto) 3.7 Eos % (Auto) 0.0 Baso % (Auto) 0.1 Neut # (Auto) 16.9 H Lymph # (Auto) 1.2 Moody # (Auto) 0.7 Eos # (Auto) 0.0 Baso # (Auto) 0.0 Neutrophils % (Manual) 76 H Band Neutrophils % 18 H* Lymphocytes % (Manual) 3 L Monocytes % (Manual) 3 Platelet Estimate Normal RBC Morphology Normal Sodium 133 Potassium 3.4 L Chloride 102 Carbon Dioxide 19 L Anion Gap 15 BUN 16 Creatinine 0.8 Est GFR ( Amer) > 60 Est GFR (Non-Af Amer) > 60 Random Glucose 123 H Calcium 7.2 L Total Bilirubin 1.6 H AST 36 ALT 30 Alkaline Phosphatase 92 Total Protein 6.8 Albumin 3.4 L D Globulin 3.5 Albumin/Globulin Ratio 1.0 Triglycerides 1401 H Cholesterol 292 H LDL Cholesterol Direct < 30 HDL Cholesterol 25 L Amylase 842 H D Lipase 5014 H Attending/Attestation - Attestation I have personally seen and examined this patient.: Yes I have fully participated in the care of the patient.: Yes I have reviewed all pertinent clinical information: Yes Notes (Text): seen and examined. complaining of severe abdominal pain. denies fever,denies alcohol use. Last alcohol is 7 years back. No on examination his lungs clear. Abdomen soft ,tender epigastric area with guarding,no rigidity High lipase patient refuses repeat lasb discussed with the resident I agree with the assessment and the plan of the resident
[2017-12-07] MEDS: Lactated Ringer's 1,000 ML IV SCH ×3 (10:43→22:33)
[2017-12-07 11:22] LABS: LIPASE 5077 U/L (23-300)
[2017-12-07 11:29] VITALS: RESP 20
--- NOTE | 2017-12-07 12:34 | RAD ---
HISTORY: ivf,mid epigastric pain COMPARISON: No prior. FINDINGS: LUNGS: The lungs are well inflated and clear. PLEURA: No significant pleural effusion identified, no pneumothorax apparent. CARDIOVASCULAR: Normal. OSSEOUS STRUCTURES: No significant abnormalities. VISUALIZED UPPER ABDOMEN: Normal. OTHER FINDINGS: None. IMPRESSION: No active pulmonary disease.
--- NOTE | 2017-12-07 12:59 | US ---
HISTORY: Hx of pancreatitis, r/o gallstones COMPARISON: None. TECHNIQUE: Sonographic evaluation of the right upper quadrant of the abdomen. FINDINGS: LIVER: Measures 16.2 cm in length. Normal echogenicity of the liver parenchyma. No mass. No intrahepatic bile duct dilatation. GALLBLADDER: Unremarkable. No gallstones. COMMON BILE DUCT: Measures 4 mm. No stones. No dilatation. PANCREAS: Limited evaluation. No gross abnormality. RIGHT KIDNEY: Measures 10.8 a cm in length. Normal echogenicity. No calculus or hydronephrosis. Pedunculated lower pole cortical cyst, 1.4 cm diameter. AORTA: No aneurysmal dilatation. IVC: Unremarkable. OTHER FINDINGS: None . IMPRESSION: No evidence of pancreatitis. No evidence of cholelithiasis or cholecystitis. Please note that evaluation of the pancreas is limited in this patient due to bowel gas obscuring the region of interest. Incidental 1.4 cm pedunculated right lower pole renal cortical cyst. No additional abnormality.
--- NOTE | 2017-12-07 15:09 | CP.PCM.CON ---
History of Present Illness - History of Present Illness History of Present Illness: 2 days epig pain- severe, sharp. +n/V. PMH: ex etoh- stopped 2 yrs ago. Pancreatitis 1 month ago. Denies meds , herbals, vitamins, cocaine., RB. Reports eating fatty food. Review of Systems - Constitutional Constitutional: absent: Chills, Fever - Cardiovascular Cardiovascular: absent: Chest Pain, Dyspnea - Respiratory Respiratory: absent: Cough, Dyspnea, Hemoptysis - Gastrointestinal Gastrointestinal: Abdominal Pain, Nausea, Vomiting. absent: Hematemesis, Hematochezia, Melena - Genitourinary Genitourinary: absent: Hematuria - Musculoskeletal Musculoskeletal: absent: Muscle Cramps - Integumentary Integumentary: absent: Jaundice - Neurological Neurological: absent: Convulsions - Psychiatric Psychiatric: absent: Hallucinations Past Patient History - Past Medical History & Family History Past Medical History?: Yes - Past Social History Smoking Status: daily - CARDIAC Hx Cardiac Disorders: No - PULMONARY Hx Respiratory Disorders: No - NEUROLOGICAL Hx Neurological Disorder: No - HEENT Hx HEENT Problems: No - RENAL Hx Chronic Kidney Disease: No - ENDOCRINE/METABOLIC Hx Endocrine Disorders: No - HEMATOLOGICAL/ONCOLOGICAL Hx Blood Disorders: No - INTEGUMENTARY Hx Dermatological Problems: No - MUSCULOSKELETAL/RHEUMATOLOGICAL Hx Musculoskeletal Disorders: No Hx Falls: No - GASTROINTESTINAL Hx Gastrointestinal Disorders: Yes Hx Pancreatitis: Yes - GENITOURINARY/GYNECOLOGICAL Hx Genitourinary Disorders: No - PSYCHIATRIC Hx Psychophysiologic Disorder: Yes Hx Substance Use: Yes - SURGICAL HISTORY Hx Surgeries: No - ANESTHESIA Hx Anesthesia: No Hx Anesthesia Reactions: No Hx Malignant Hyperthermia: No Has any member of the family had a problem w/ anesthesia?: No Meds Allergies/Adverse Reactions: Allergies Allergy/AdvReac Type Severity Reaction Status Date / Time No Known Allergies Allergy Verified 12/07/17 06:00 - Medications Medications: Current Medications Sodium Chloride (Sodium Chloride 0.9%) 1,000 mls @ 100 mls/hr IV .Q10H ONE Stop: 12/07/17 16:13 Last Admin: 12/07/17 07:23 Dose: 100 mls/hr Lactated Ringer's (Lactated Ringer's) 1,000 mls @ 200 mls/hr IV .Q5H ELYSSA Last Admin: 12/07/17 10:43 Dose: 200 mls/hr Ketorolac Tromethamine (Toradol) 30 mg IVP Q6H PRN PRN Reason: Pain, moderate (4-7) Last Admin: 12/07/17 14:17 Dose: 30 mg Pantoprazole Sodium (Protonix Inj) 40 mg IVP Q12H ELYSSA Last Admin: 12/07/17 11:09 Dose: 40 mg Physical Exam - Constitutional Appears: Well - Respiratory Exam Respiratory Exam: Clear to Auscultation Bilateral - Cardiovascular Exam Cardiovascular Exam: RRR - GI/Abdominal Exam GI & Abdominal Exam: Normal Bowel Sounds, Soft, Tenderness. absent: Distended, Guarding, Mass, Rebound Additional comments: mild epig tenderness. - Extremities Exam Extremities exam: Negative for: pedal edema - Neurological Exam Neurological exam: Alert, Oriented x3 Results - Vital Signs Recent Vital Signs: Last Vital Signs Temp 98.1 F 12/07/17 13:55 Pulse 51 L 12/07/17 13:55 Resp 20 12/07/17 13:55 BP 152/89 H 12/07/17 14:17 Pulse Ox 94 L 12/07/17 13:55 - Labs Result Diagrams: 12/07/17 06:42 12/07/17 06:42 Labs: Laboratory Results - last 24 hr 12/07/17 12/07/17 12/07/17 06:42 06:42 06:47 WBC 20.5 H D RBC 4.50 Hgb 15.1 D Hct 39.9 MCV 88.6 MCH 33.6 H MCHC 37.9 H RDW 13.1 Plt Count 363 MPV 7.3 Neut % (Auto) 78.5 H Lymph % (Auto) 12.8 L Early % (Auto) 5.0 Eos % (Auto) 2.7 Baso % (Auto) 1.0 Neut # (Auto) 16.1 H Lymph # (Auto) 2.6 Early # (Auto) 1.0 H Eos # (Auto) 0.5 Baso # (Auto) 0.2 Sodium 141 Potassium 3.9 Chloride 107 Carbon Dioxide 19 L Anion Gap 19 BUN 13 Creatinine 1.0 Est GFR ( Amer) > 60 Est GFR (Non-Af Amer) > 60 Random Glucose 130 H Calcium 8.9 Total Bilirubin 1.1 AST 37 ALT 35 Alkaline Phosphatase 140 H D Lactate Dehydrogenase 650 H Total Protein 9.1 H Albumin 4.4 Globulin 4.7 H Albumin/Globulin Ratio 0.9 L Lipase 5077 H Urine Color Yellow Urine Clarity Hazy Urine pH 5.0 Ur Specific [place] 1.023 Urine Protein 2+ H Urine Glucose (UA) Normal Urine Ketones Negative Urine Blood 1+ H Urine Nitrate Negative Urine Bilirubin Negative Urine Urobilinogen Normal Ur Leukocyte Esterase Neg Urine WBC (Auto) 1 Urine RBC (Auto) 2 Urine Bacteria Rare Assessment & Plan (1) Abdominal pain Assessment and Plan: pancreatitis Status: Acute (2) Acute pancreatitis Assessment and Plan: h/o etoh- but in the past. Consider acute on chronic pancreatitis. Consider recent ETOH- but pt denies. AST/ ALT- ok- no sign of biliary disease. Consider pancreas divisum.Rec; NPO, IV hydration >250 cc/hr, follow labs, check CBC/WBC, analgesics as needed, check lipids, HEATH, IgG4, Consider MRI/MRCP. Discussed with admitting Attending. Status: Resolved Priority: Medium (3) Leukocytosis Status: Acute
[2017-12-07] MEDS: Morphine 4 MG/ML VIAL IV PRN ×2 (16:24→20:02)
[2017-12-08] MEDS: Morphine 4 MG/ML VIAL IV PRN ×6 (00:25→21:57)
[2017-12-08] MEDS: Lactated Ringer's 1,000 ML IV SCH ×4 (04:10→21:57)
[2017-12-08 08:27] LABS: BASO % 0.1 % (0.0-2.0); LYMPH # 1.2 K/uL (1.0-4.3); LYMPH % 6.2 % (20.0-40.0); MONO # 0.7 K/uL (0.0-0.8); MONO % 3.7 % (0.0-10.0); NEUT # 16.9 K/uL (1.8-7.0); NRBC % 0.3 % (0.0-2.0); RED CELL DISTRIBUTION WIDTH 13.4 % (11.5-14.5)
[2017-12-08 08:55] LABS: ALBUMIN 3.4 g/dL (3.5-5.0); ALT/SGPT 30 U/L (21-72); AMYLASE 842 U/L (30-110); AST/SGOT 36 U/L (17-59); BLOOD UREA NITROGEN 16 mg/dL (9-20); CALCIUM 7.2 mg/dl (8.6-10.4); GFR AFRICAN-AMERICAN > 60; GFR NON-AFRICAN AMERICAN > 60; HDL CHOLESTEROL 25 mg/dL (30-70); LDL CHOLESTEROL < 30 mg/dL (0-129)
[2017-12-08 09:08] LABS: HEMOGLOBIN 15.6 g/dL (12.0-18.0); MEAN CORPUSCULAR HGB CONC 34.1 g/dL (33.0-37.0); MEAN PLATELET VOLUME 7.9 fL (7.2-11.7); RBC 5.03 Mil/uL (4.40-5.90)
[2017-12-08 09:09] LABS: LIPASE 5014 U/L (23-300); MEAN CELL VOLUME 90.8 fL (80.0-94.0); WHITE BLOOD COUNT 18.8 K/uL (4.8-10.8)
[2017-12-08 09:10] LABS: PLATELET COUNT 354 K/uL (130-400)
[2017-12-08 10:43] LABS: BANDS 18 % (0-2); LYMPHOCYTE 3 % (20-40); MONOCYTE 3 % (0-10); NEUTROPHIL 76 % (50-75); PLATELET ESTIMATE NORMAL (NORMAL); TOTAL CELLS COUNTED 100
--- NOTE | 2017-12-08 11:03 | CP.PCM.PN ---
Subjective - Date & Time of Evaluation Date of Evaluation: 12/08/17 Time of Evaluation: 10:58 - Subjective Subjective: GI Service follow up + Abdominal pain, requesting more anelgesics Triglycerides markedly elevated Refusing MRCP Objective - Vital Signs/Intake and Output Vital Signs (last 24 hours): Temp Pulse Resp BP Pulse Ox 98.0 F 65 20 132/69 96 12/08/17 07:00 12/08/17 09:40 12/08/17 07:00 12/08/17 09:40 12/08/17 07:00 Intake and Output: 12/08/17 12/08/17 06:59 18:59 Intake Total 1600 Balance 1600 - Medications Medications: Current Medications Lactated Ringer's (Lactated Ringer's) 1,000 mls @ 200 mls/hr IV .Q5H ELYSSA Last Admin: 12/08/17 08:58 Dose: 200 mls/hr Ketorolac Tromethamine (Toradol) 30 mg IVP Q6H PRN PRN Reason: Pain, moderate (4-7) Last Admin: 12/07/17 14:17 Dose: 30 mg Morphine Sulfate (Morphine) 4 mg IV Q4H PRN PRN Reason: Pain, severe (8-10) Last Admin: 12/08/17 08:31 Dose: 4 mg Pantoprazole Sodium (Protonix Inj) 40 mg IVP Q12H ELYSSA Last Admin: 12/07/17 22:33 Dose: 40 mg Rosuvastatin Calcium (Crestor) 20 mg PO HS ELYSSA - Labs Labs: 12/08/17 08:12 12/08/17 08:12 - Constitutional Appears: No Acute Distress - Head Exam Head Exam: NORMOCEPHALIC - Eye Exam Eye Exam: absent: Scleral icterus - Respiratory Exam Respiratory Exam: Clear to Ausculation Bilateral - Cardiovascular Exam Cardiovascular Exam: REGULAR RHYTHM - GI/Abdominal Exam GI & Abdominal Exam: Firm, Guarding, Soft, Tenderness, Diminished Bowel Sounds Assessment and Plan (1) Acute pancreatitis Assessment & Plan: Due to Hypertriglyceridemia Rec: IV Fluids and anelgesics. Medical management of Hypertriglyceridemia. Consider Endocrinology consult. Advance diet once pain is reasonably controlled Discussed with patient need for [employer] clinic follow up and management of Triglycerides and this will hopefully prevent future attacks of pancreatitis. He admitted he never sought clinic follow up because when he feels well in between pancreatitis flareups he ignores medical follow up Status: Resolved
[2017-12-08] MEDS: Piperacill/Tazo 3.375gm in Dex 3.375 GM/50 ML BAG IVPB SCH ×2 (13:00→19:00)
[2017-12-08] MEDS ORDERED: Potassium Chloride 20 mEq ER Tab PO ONE ×2 (13:55→16:15)
[2017-12-08] MEDS: metroNIDAZOLE IV 500 mg/100 ml 500 MG/100 ML BAG IVPB SCH ×2 (15:03→21:58)
--- NOTE | 2017-12-08 16:16 | CP.PCM.PN ---
<Brigid Wade - Last Filed: 12/09/17 09:14> Subjective - Date & Time of Evaluation Date of Evaluation: 12/08/17 Time of Evaluation: 16:15 - Subjective Subjective: Progress note for Dr. Tomlinson Patient seen and examined at bedside. Patient states he's in a lot of pain, but physical exam does not illicit pain. Patient continues to be on fluids at 200cc/ hr. Patient's lipase is elevated today. Patient is aware that his triglycerides are high and that an MRCP may help with diagnosis. Patient refuses MRCP. Objective - Vital Signs/Intake and Output Vital Signs (last 24 hours): Temp Pulse Resp BP Pulse Ox 98.0 F 65 20 132/69 96 12/08/17 07:00 12/08/17 09:40 12/08/17 07:00 12/08/17 09:40 12/08/17 07:00 Intake and Output: 12/08/17 12/08/17 06:59 18:59 Intake Total 1600 Balance 1600 - Medications Medications: Current Medications Metronidazole (Flagyl) 500 mg in 100 mls @ 100 mls/hr IVPB Q8 ELYSSA PRN Reason: Protocol Last Admin: 12/08/17 16:03 Dose: 100 mls/hr Piperacillin Sod/Tazobactam Sod (Zosyn 3.375 Gm Iv Premix) 3.375 gm in 50 mls @ 100 mls/hr IVPB Q6H ELYSSA PRN Reason: Protocol Last Admin: 12/08/17 16:02 Dose: 100 mls/hr Lactated Ringer's (Lactated Ringer's) 1,000 mls @ 250 mls/hr IV .Q4H ELYSSA Last Admin: 12/08/17 16:03 Dose: 250 mls/hr Ketorolac Tromethamine (Toradol) 30 mg IVP Q6H PRN PRN Reason: Pain, moderate (4-7) Last Admin: 12/07/17 14:17 Dose: 30 mg Morphine Sulfate (Morphine) 4 mg IV Q4H PRN PRN Reason: Pain, severe (8-10) Last Admin: 12/08/17 12:31 Dose: 4 mg Pantoprazole Sodium (Protonix Inj) 40 mg IVP Q12H [facility]SS[facility] Last Admin: 12/08/17 11:35 Dose: 40 mg Potassium Chloride (K-Dur 20 Meq Er Tab) 20 meq PO ONCE ONE Stop: 12/08/17 16:16 - Labs Labs: 12/08/17 08:12 12/08/17 08:12 - Additional Findings Additional findings: - Constitutional Appears: Non-toxic, No Acute Distress, Agitated - Head Exam Head Exam: NORMAL INSPECTION, NORMOCEPHALIC - Eye Exam Eye Exam: EOMI, Normal appearance Pupil Exam: NORMAL ACCOMODATION, PERRL - ENT Exam ENT Exam: Mucous Membranes Moist, Normal Exam - Neck Exam Neck exam: Positive for: Normal Inspection - Respiratory Exam Respiratory Exam: Clear to Auscultation Bilateral, NORMAL BREATHING PATTERN - Cardiovascular Exam Cardiovascular Exam: REGULAR RHYTHM, +S1, +S2. absent: Bradycardia, Tachycardia - GI/Abdominal Exam GI & Abdominal Exam: Normal Bowel Sounds, Soft. absent: Distended, Firm, Guarding, Tenderness Additional comments: Patient admits to mid-epigastric tenderness. no tenderness illicited on physical exam - Neurological Exam Neurological exam: Alert, CN II-XII Intact, Oriented x3 - Psychiatric Exam Psychiatric exam: Normal Affect, Normal Mood - Skin Skin Exam: Dry, Intact, Normal Color, Warm Assessment and Plan - Assessment and Plan (Free Text) Assessment: 52M with history of chronic pancreatitis presents with nausea, vomiting was found to have pancreatitis. Acute pancreatitis, history of chronic pancreatitis Diet: NPO CT abdomen/pelvis: mild acute uncomplicated pancreatitis f/u abdominal US Lipase downtrending but elevated TG 1401 Cholesterol 292 LDL <30 Amylase 842 Lipase 5014 Leukocytosis 20.5 Lactate dehydrogenase 650 ALP 140 f/u blood culture monitor Vitals GI consult: Dr. Churchill Flagyl 500mg IVPB Q8H LR @ 250cc/hr Prophylaxis SCD, patient can ambulate Protonix 40mg IVP QD Morphine 4mg IV Q4H PRN pain discussed with Dr. Davi Rainey Eng, DO PGY1 <Gilles Tomlinson - Last Filed: 12/09/17 17:26> Objective - Vital Signs/Intake and Output Vital Signs (last 24 hours): Temp Pulse Resp BP Pulse Ox 98.0 F 86 20 134/88 96 12/09/17 16:10 12/09/17 16:10 12/09/17 16:10 12/09/17 17:05 12/09/17 16:10 - Medications Medications: Current Medications Metronidazole (Flagyl) 500 mg in 100 mls @ 100 mls/hr IVPB Q8 ELYSSA PRN Reason: Protocol Last Admin: 12/09/17 13:40 Dose: 100 mls/hr Piperacillin Sod/Tazobactam Sod (Zosyn 3.375 Gm Iv Premix) 3.375 gm in 50 mls @ 100 mls/hr IVPB Q6H ELYSSA PRN Reason: Protocol Last Admin: 12/09/17 11:00 Dose: 100 mls/hr Lactated Ringer's (Lactated Ringer's) 1,000 mls @ 150 mls/hr IV .Q6H40M ELYSSA Last Admin: 12/09/17 13:00 Dose: 150 mls/hr Ketorolac Tromethamine (Toradol) 30 mg IVP Q6H PRN PRN Reason: Pain, moderate (4-7) Last Admin: 12/09/17 13:37 Dose: 30 mg Morphine Sulfate (Morphine) 4 mg IV Q6H PRN PRN Reason: Pain, severe (8-10) Last Admin: 12/09/17 10:46 Dose: 4 mg Pantoprazole Sodium (Protonix Inj) 40 mg IVP Q12H ELYSSA Last Admin: 12/09/17 10:49 Dose: 40 mg - Labs Labs: 12/09/17 08:25 12/09/17 08:25 Attending/Attestation - Attestation I have personally seen and examined this patient.: Yes I have fully participated in the care of the patient.: Yes I have reviewed all pertinent clinical information, including history, physical exam and plan: Yes Notes (Text): seen and examined Has acute pancreatitis. Elevated wbc,high bands and severe abdominal pain started on antibiotics,follow cultures d/w resident I agrees with the documentation of the assessment and the plan
[2017-12-09] MEDS: Piperacill/Tazo 3.375gm in Dex 3.375 GM/50 ML BAG IVPB SCH ×4 (00:10→18:38)
[2017-12-09] MEDS: Morphine 4 MG/ML VIAL IV PRN ×4 (02:16→18:08)
[2017-12-09] MEDS: Lactated Ringer's 1,000 ML IV SCH ×5 (02:21→21:39)
[2017-12-09] MEDS: metroNIDAZOLE IV 500 mg/100 ml 500 MG/100 ML BAG IVPB SCH ×3 (06:21→21:38)
--- NOTE | 2017-12-09 08:23 | CP.PCM.PN ---
Subjective - Date & Time of Evaluation Date of Evaluation: 12/09/17 Time of Evaluation: 08:10 - Subjective Subjective: F/U pancreatitis. Pt reports still epig pain- moderate. + gas- abdomen. Denies vomiting, fever, chills, SZ, LOC, CLEMONS, RB, melena, diarrhea Reports eating very fatty food as outpatient Objective - Vital Signs/Intake and Output Vital Signs (last 24 hours): Temp Pulse Resp BP Pulse Ox 97.9 F 86 20 141/88 95 12/09/17 07:00 12/09/17 07:00 12/09/17 07:00 12/09/17 07:00 12/09/17 07:00 - Medications Medications: Current Medications Metronidazole (Flagyl) 500 mg in 100 mls @ 100 mls/hr IVPB Q8 ELYSSA PRN Reason: Protocol Last Admin: 12/09/17 06:21 Dose: 100 mls/hr Piperacillin Sod/Tazobactam Sod (Zosyn 3.375 Gm Iv Premix) 3.375 gm in 50 mls @ 100 mls/hr IVPB Q6H ELYSSA PRN Reason: Protocol Last Admin: 12/09/17 06:20 Dose: 100 mls/hr Lactated Ringer's (Lactated Ringer's) 1,000 mls @ 250 mls/hr IV .Q4H ELYSSA Last Admin: 12/09/17 06:21 Dose: 250 mls/hr Ketorolac Tromethamine (Toradol) 30 mg IVP Q6H PRN PRN Reason: Pain, moderate (4-7) Last Admin: 12/07/17 14:17 Dose: 30 mg Morphine Sulfate (Morphine) 4 mg IV Q4H PRN PRN Reason: Pain, severe (8-10) Last Admin: 12/09/17 06:44 Dose: 4 mg Pantoprazole Sodium (Protonix Inj) 40 mg IVP Q12H ELYSSA Last Admin: 12/08/17 22:03 Dose: 40 mg - Labs Labs: 12/08/17 08:12 12/08/17 08:12 - Constitutional Appears: Non-toxic - Respiratory Exam Respiratory Exam: Clear to Ausculation Bilateral - Cardiovascular Exam Cardiovascular Exam: RRR - GI/Abdominal Exam GI & Abdominal Exam: Tenderness, Normal Bowel Sounds. absent: Guarding, Mass, Rebound Additional comments: mild epig tenderness, protuberant - Extremities Exam Extremities Exam: absent: Pedal Edema - Neurological Exam Neurological Exam: Alert, Oriented x3 Assessment and Plan (1) Abdominal pain Assessment & Plan: pancreatitis Status: Acute (2) Acute pancreatitis Assessment & Plan: likely due to elev TG. Elev WBC and bands- no signs of necrosis on CT. COnsider repeat CT abdomen with arterial phase study and pancreas cuts. Repeat CBC. He is on antibiotics and IV fluids at 250cc/hr. Would get surgical consult due to pancreatitis and elev WBC, and get endocrinolgy consult for elev TG. COnsider ID consult for elev WBC. Status: Resolved (3) Leukocytosis Status: Acute
[2017-12-09 08:34] LABS: BASO % 0.1 % (0.0-2.0); EOS % 0.1 % (0.0-4.0); HEMOGLOBIN 14.8 g/dL (12.0-18.0); LYMPH # 0.7 K/uL (1.0-4.3); LYMPH % 4.1 % (20.0-40.0); MEAN CELL VOLUME 90.1 fL (80.0-94.0); MEAN CORPUSCULAR HEMOGLOBIN 31.4 pg (27.0-31.0); MEAN CORPUSCULAR HGB CONC 34.8 g/dL (33.0-37.0); MEAN PLATELET VOLUME 7.7 fL (7.2-11.7); MONO # 0.7 K/uL (0.0-0.8); NEUT # 15.9 K/uL (1.8-7.0); NEUT % 91.7 % (50.0-75.0); NRBC % 0.3 % (0.0-2.0); PLATELET COUNT 300 K/uL (130-400); RBC 4.71 Mil/uL (4.40-5.90); RED CELL DISTRIBUTION WIDTH 13.2 % (11.5-14.5); WHITE BLOOD COUNT 17.3 K/uL (4.8-10.8)
[2017-12-09 08:55] LABS: ALB/GLOB RATIO 1.1 (1.0-2.1); ALBUMIN 3.6 g/dL (3.5-5.0); ALT/SGPT 16 U/L (21-72); AST/SGOT 29 U/L (17-59); BLOOD UREA NITROGEN 14 mg/dL (9-20); CALCIUM 7.3 mg/dl (8.6-10.4); GFR AFRICAN-AMERICAN > 60; GFR NON-AFRICAN AMERICAN > 60; LIPASE 963 U/L (23-300)
--- NOTE | 2017-12-09 09:19 | CP.PCM.PN ---
Addendum entered and electronically signed by Brigid Wade DO 12/09/17 13:47: of note, patient refused CT abdomen because he does not want to take oral contrast or IV contrast. Original Note: <Brigid Wade - Last Filed: 12/09/17 12:46> Subjective - Date & Time of Evaluation Date of Evaluation: 12/09/17 Time of Evaluation: 09:23 - Subjective Subjective: Progress note for Dr. Tomlinson Patient seen and examined at bedside. No acute events overnight. Patient tolerating liquid diet. Objective - Vital Signs/Intake and Output Vital Signs (last 24 hours): Temp Pulse Resp BP Pulse Ox 97.9 F 86 20 141/88 95 12/09/17 07:00 12/09/17 07:00 12/09/17 07:00 12/09/17 07:00 12/09/17 07:00 - Medications Medications: Current Medications Metronidazole (Flagyl) 500 mg in 100 mls @ 100 mls/hr IVPB Q8 ELYSSA PRN Reason: Protocol Last Admin: 12/09/17 06:21 Dose: 100 mls/hr Piperacillin Sod/Tazobactam Sod (Zosyn 3.375 Gm Iv Premix) 3.375 gm in 50 mls @ 100 mls/hr IVPB Q6H ELYSSA PRN Reason: Protocol Last Admin: 12/09/17 06:20 Dose: 100 mls/hr Lactated Ringer's (Lactated Ringer's) 1,000 mls @ 250 mls/hr IV .Q4H ELYSSA Last Admin: 12/09/17 06:21 Dose: 250 mls/hr Ketorolac Tromethamine (Toradol) 30 mg IVP Q6H PRN PRN Reason: Pain, moderate (4-7) Last Admin: 12/07/17 14:17 Dose: 30 mg Morphine Sulfate (Morphine) 4 mg IV Q6H PRN PRN Reason: Pain, severe (8-10) Pantoprazole Sodium (Protonix Inj) 40 mg IVP Q12H [facility] Last Admin: 12/08/17 22:03 Dose: 40 mg Potassium Chloride (K-Dur 20 Meq Er Tab) 40 meq PO ONCE ONE Stop: 12/09/17 09:18 - Labs Labs: 12/09/17 08:25 12/09/17 08:25 - Additional Findings Additional findings: Constitutional Appears: Non-toxic, No Acute Distress, Agitated - Head Exam Head Exam: NORMAL INSPECTION, NORMOCEPHALIC - Eye Exam Eye Exam: EOMI, Normal appearance Pupil Exam: NORMAL ACCOMODATION, PERRL - ENT Exam ENT Exam: Mucous Membranes Moist, Normal Exam - Neck Exam Neck exam: Positive for: Normal Inspection - Respiratory Exam Respiratory Exam: Clear to Auscultation Bilateral, NORMAL BREATHING PATTERN - Cardiovascular Exam Cardiovascular Exam: REGULAR RHYTHM, +S1, +S2. absent: Bradycardia, Tachycardia - GI/Abdominal Exam GI & Abdominal Exam: Normal Bowel Sounds, Soft. absent: Distended, Firm, Guarding, Tenderness Additional comments: Patient admits to mid-epigastric tenderness. no tenderness illicited on physical exam - Neurological Exam Neurological exam: Alert, CN II-XII Intact, Oriented x3 - Psychiatric Exam Psychiatric exam: Normal Affect, Normal Mood - Skin Skin Exam: Dry, Intact, Normal Color, Warm Assessment and Plan - Assessment and Plan (Free Text) Assessment: 52M with history of chronic pancreatitis presents with nausea, vomiting was found to have pancreatitis. Acute pancreatitis, history of chronic pancreatitis Lipase downtrending but elevated Diet: liquid diet CT abdomen/pelvis: mild acute uncomplicated pancreatitis Abdominal US: no pancreatitis TG 1401 Cholesterol 292 LDL <30 Amylase 842 Leukocytosis 20.5 Lactate dehydrogenase 650 ALP 140 Per GI: patient may benefit from CT abdomen with arterial phase study and pancreas, Endo and Surgical Consult. CT abdomen with arterial phase study with pancreas cuts denied by patient 12/09 GI consult: Dr. Churchill Endo Consult: Dr. Alexander Walls Flagyl LR @ 250cc/hr, decreased to 12/09/17 Hypokalemia repleted Leukocytosis Downtrending Prophylaxis SCD, patient can ambulate Protonix 40mg IVP QD Morphine 4mg IV Q4H PRN pain discussed with Dr. Davi Rainey Eng, DO PGY1 <Gilles Tomlinson - Last Filed: 12/09/17 17:29> Objective - Vital Signs/Intake and Output Vital Signs (last 24 hours): Temp Pulse Resp BP Pulse Ox 98.0 F 86 20 134/88 96 12/09/17 16:10 12/09/17 16:10 12/09/17 16:10 12/09/17 17:05 12/09/17 16:10 - Medications Medications: Current Medications Metronidazole (Flagyl) 500 mg in 100 mls @ 100 mls/hr IVPB Q8 ELYSSA PRN Reason: Protocol Last Admin: 12/09/17 13:40 Dose: 100 mls/hr Piperacillin Sod/Tazobactam Sod (Zosyn 3.375 Gm Iv Premix) 3.375 gm in 50 mls @ 100 mls/hr IVPB Q6H ELYSSA PRN Reason: Protocol Last Admin: 12/09/17 11:00 Dose: 100 mls/hr Lactated Ringer's (Lactated Ringer's) 1,000 mls @ 150 mls/hr IV .Q6H40M ELYSSA Last Admin: 12/09/17 13:00 Dose: 150 mls/hr Ketorolac Tromethamine (Toradol) 30 mg IVP Q6H PRN PRN Reason: Pain, moderate (4-7) Last Admin: 12/09/17 13:37 Dose: 30 mg Morphine Sulfate (Morphine) 4 mg IV Q6H PRN PRN Reason: Pain, severe (8-10) Last Admin: 12/09/17 10:46 Dose: 4 mg Pantoprazole Sodium (Protonix Inj) 40 mg IVP Q12H ELYSSA Last Admin: 12/09/17 10:49 Dose: 40 mg - Labs Labs: 12/09/17 08:25 12/09/17 08:25 Attending/Attestation - Attestation I have personally seen and examined this patient.: Yes I have fully participated in the care of the patient.: Yes I have reviewed all pertinent clinical information, including history, physical exam and plan: Yes Notes (Text): Patient is feeling better today,lipase is coming down Bllod culture x24hrs negative. We will continue antibiotics,may stop if cultures negative for 48hrs wbc is coming down d/w DR Munoz. Discharge on fibrates for hyper triglycerides. recommend fish oil d/w patient He appreciate the care I agree with the resident's documentation of the assessment and the plan.
[2017-12-09] MEDS ORDERED: Potassium Chloride 20 mEq ER Tab PO ONE (09:30)
[2017-12-09] MEDS ORDERED: Iohexol 240 (50 ml) PO ONE (10:00)
[2017-12-09 10:41] LABS: LYMPHOCYTE 3 % (20-40); MONOCYTE 4 % (0-10); NEUTROPHIL 93 % (50-75); TOTAL CELLS COUNTED 100
[2017-12-09 10:42] LABS: PLATELET ESTIMATE NORMAL (NORMAL)
--- NOTE | 2017-12-09 14:25 | RAD ---
HISTORY: ivf evaluation, rales COMPARISON: Portable chest 12/07/2017. FINDINGS: LUNGS: Diminished inspiratory effort identified bilaterally with limited airspace disease identified in the bilateral bases. Consider potential bilateral basilar infiltrates or atelectasis. PLEURA: Trace bilateral pleural effusions are difficult to completely exclude. CARDIOVASCULAR: Frontal technique appears to accentuate the cardiac size no cardiomegaly is not excluded. Mild pulmonary venous congestion is also in question. OSSEOUS STRUCTURES: No significant abnormalities. VISUALIZED UPPER ABDOMEN: Normal. OTHER FINDINGS: None. IMPRESSION: Diminished history volume likely crowds the bronchovascular markings however bilateral basilar infiltrates or atelectasis is suggested mildly. Further, limited CHF pattern is not excluded in the interval. Further clinical correlation is recommended.
--- NOTE | 2017-12-09 20:28 | CP.PCM.CON ---
<Garcia Waters - Last Filed: 12/09/17 20:21> History of Present Illness - History of Present Illness History of Present Illness: General Surgery Consult Note for Dr. Anderson This is a 52M with a PMH of recurrent acute pancreatitis. He was admitted for non bloody non bilious emesis and abdominal pain. He was found to have an elevated lipase and CT scan was done at the time that was significant for mild acute pancreatitis. He reports first episode occurred 10 years ago. At the time he was told it was due to alcohol use however he reports he has not had a drink since that first attack. Since that time he has been hospitalized for acute panreatitis 5 times. During the last admission the patient was noted to have a triglyceride level of 2300. He currently reports that he is still in pain however it is slightly decreased since the previous admission. He is no longer vomiting and he is currently tolerating clear liquids. PMH: Recurrent Pancreatitis PSH: Inguinal hernia repair ALL:NKDA Social: Former drinker, current marijuana user, denies tobacco. Review of Systems - Constitutional Constitutional: Anorexia. absent: Fever, Headache - EENT Eyes: absent: Blurred Vision, Change in Vision - Cardiovascular Cardiovascular: absent: Chest Pain, Dyspnea - Respiratory Respiratory: absent: Dyspnea, Dyspnea on Exertion - Gastrointestinal Gastrointestinal: Abdominal Pain, Bloating, Nausea, Vomiting - Genitourinary Genitourinary: absent: Dysuria - Musculoskeletal Musculoskeletal: Back Pain. absent: Myalgias Past Patient History - Past Medical History & Family History Past Medical History?: Yes - Past Social History Smoking Status: daily - CARDIAC Hx Cardiac Disorders: No - PULMONARY Hx Respiratory Disorders: No - NEUROLOGICAL Hx Neurological Disorder: No - HEENT Hx HEENT Problems: No - RENAL Hx Chronic Kidney Disease: No - ENDOCRINE/METABOLIC Hx Endocrine Disorders: No - HEMATOLOGICAL/ONCOLOGICAL Hx Blood Disorders: No - INTEGUMENTARY Hx Dermatological Problems: No - MUSCULOSKELETAL/RHEUMATOLOGICAL Hx Musculoskeletal Disorders: No Hx Falls: No - GASTROINTESTINAL Hx Gastrointestinal Disorders: Yes Hx Pancreatitis: Yes - GENITOURINARY/GYNECOLOGICAL Hx Genitourinary Disorders: No - PSYCHIATRIC Hx Psychophysiologic Disorder: Yes Hx Substance Use: Yes - SURGICAL HISTORY Hx Surgeries: No - ANESTHESIA Hx Anesthesia: No Hx Anesthesia Reactions: No Hx Malignant Hyperthermia: No Has any member of the family had a problem w/ anesthesia?: No Meds Allergies/Adverse Reactions: Allergies Allergy/AdvReac Type Severity Reaction Status Date / Time No Known Allergies Allergy Verified 12/07/17 06:00 - Medications Medications: Current Medications Metronidazole (Flagyl) 500 mg in 100 mls @ 100 mls/hr IVPB Q8 ELYSSA PRN Reason: Protocol Last Admin: 12/09/17 13:40 Dose: 100 mls/hr Piperacillin Sod/Tazobactam Sod (Zosyn 3.375 Gm Iv Premix) 3.375 gm in 50 mls @ 100 mls/hr IVPB Q6H ELYSSA PRN Reason: Protocol Last Admin: 12/09/17 11:00 Dose: 100 mls/hr Lactated Ringer's (Lactated Ringer's) 1,000 mls @ 150 mls/hr IV .Q6H40M REPLACED BY [facility] Last Admin: 12/09/17 13:00 Dose: 150 mls/hr Ketorolac Tromethamine (Toradol) 30 mg IVP Q6H PRN PRN Reason: Pain, moderate (4-7) Last Admin: 12/09/17 13:37 Dose: 30 mg Morphine Sulfate (Morphine) 4 mg IV Q6H PRN PRN Reason: Pain, severe (8-10) Last Admin: 12/09/17 18:08 Dose: 4 mg Pantoprazole Sodium (Protonix Inj) 40 mg IVP Q12H REPLACED BY [facility] Last Admin: 12/09/17 10:49 Dose: 40 mg Physical Exam - Constitutional Appears: Non-toxic, No Acute Distress - Head Exam Head Exam: ATRAUMATIC, NORMOCEPHALIC - Eye Exam Eye Exam: EOMI - ENT Exam ENT Exam: Mucous Membranes Moist Additional comments: Poor dentition - Respiratory Exam Respiratory Exam: NORMAL BREATHING PATTERN - Cardiovascular Exam Cardiovascular Exam: +S1, +S2 - GI/Abdominal Exam Additional comments: Softly distended, diffusely tender - Extremities Exam Extremities exam: Positive for: normal inspection - Neurological Exam Neurological exam: Alert, Oriented x3 - Psychiatric Exam Psychiatric exam: Normal Affect, Normal Mood - Skin Skin Exam: Dry, Intact Results - Vital Signs Recent Vital Signs: Last Vital Signs Temp 98.0 F 12/09/17 16:10 Pulse 86 12/09/17 16:10 Resp 20 12/09/17 16:10 BP 134/88 12/09/17 17:05 Pulse Ox 96 12/09/17 16:10 - Labs Result Diagrams: 12/09/17 08:25 12/09/17 08:25 Labs: Laboratory Results - last 24 hr 12/09/17 12/09/17 08:25 08:25 WBC 17.3 H RBC 4.71 Hgb 14.8 Hct 42.4 MCV 90.1 MCH 31.4 H MCHC 34.8 RDW 13.2 Plt Count 300 MPV 7.7 Neut % (Auto) 91.7 H Lymph % (Auto) 4.1 L [place] % (Auto) 4.0 Eos % (Auto) 0.1 Baso % (Auto) 0.1 Neut # (Auto) 15.9 H Lymph # (Auto) 0.7 L [place] # (Auto) 0.7 Eos # (Auto) 0.0 Baso # (Auto) 0.0 Neutrophils % (Manual) 93 H Lymphocytes % (Manual) 3 L Monocytes % (Manual) 4 Platelet Estimate Normal RBC Morphology Normal Sodium 135 Potassium 3.2 L Chloride 100 Carbon Dioxide 25 Anion Gap 13 BUN 14 Creatinine 1.0 Est GFR ( Amer) > 60 Est GFR (Non-Af Amer) > 60 Random Glucose 121 H Calcium 7.3 L Magnesium 1.7 Total Bilirubin 2.2 H AST 29 ALT 16 L D Alkaline Phosphatase 75 Total Protein 6.8 Albumin 3.6 Globulin 3.3 Albumin/Globulin Ratio 1.1 Lipase 963 H - Imaging and Cardiology CT scan - abdomen Status: Image reviewed by me, Report reviewed by me US - abdomen Status: Image reviewed by me, Report reviewed by me Assessment & Plan - Assessment and Plan (Free Text) Assessment: 52M with Acute Pancreatitis Vital signs stable Patient tolerating CLD CT shows no evidence of necrosis US shows no signs of gallstones or gallbladder disease There is no current surgical management indicated at time Recommend control of triglycerides Continue pain control Continue management per primary team in conjunction with gastroenterology team. D/W Dr. Justin Waters PGY2 <Suhas Anderson - Last Filed: 12/10/17 14:00> Meds - Medications Medications: Current Medications Metronidazole (Flagyl) 500 mg in 100 mls @ 100 mls/hr IVPB Q8 ELYSSA PRN Reason: Protocol Last Admin: 12/10/17 13:35 Dose: 100 mls/hr Piperacillin Sod/Tazobactam Sod (Zosyn 3.375 Gm Iv Premix) 3.375 gm in 50 mls @ 100 mls/hr IVPB Q6H ELYSSA PRN Reason: Protocol Last Admin: 12/10/17 12:29 Dose: 100 mls/hr Lactated Ringer's (Lactated Ringer's) 1,000 mls @ 150 mls/hr IV .Q6H40M REPLACED BY [facility] Last Admin: 12/10/17 03:00 Dose: 150 mls/hr Ketorolac Tromethamine (Toradol) 30 mg IVP Q6H PRN PRN Reason: Pain, moderate (4-7) Last Admin: 12/10/17 09:37 Dose: 30 mg Morphine Sulfate (Morphine) 4 mg IV Q6H PRN PRN Reason: Pain, severe (8-10) Last Admin: 12/10/17 12:30 Dose: 4 mg Pantoprazole Sodium (Protonix Inj) 40 mg IVP Q12H REPLACED BY [facility] Last Admin: 12/10/17 11:42 Dose: 40 mg Results - Vital Signs Recent Vital Signs: Last Vital Signs Temp 98.3 F 12/10/17 07:00 Pulse 73 12/10/17 07:00 Resp 20 12/10/17 07:00 BP 157/88 H 12/10/17 07:00 Pulse Ox 96 12/10/17 07:00 - Labs Result Diagrams: 12/10/17 07:55 12/10/17 07:55 Labs: Laboratory Results - last 24 hr 12/09/17 12/10/17 12/10/17 22:21 07:55 07:55 WBC 15.3 H RBC 3.85 L Hgb 12.3 D Hct 34.3 L MCV 89.0 MCH 31.9 H MCHC 35.8 RDW 13.1 Plt Count 268 MPV 7.7 Neut % (Auto) 89.1 H Lymph % (Auto) 5.3 [place] % (Auto) 4.5 Eos % (Auto) 1.0 Baso % (Auto) 0.1 Neut # (Auto) 13.6 H Lymph # (Auto) 0.8 [place] # (Auto) 0.7 Eos # (Auto) 0.1 Baso # (Auto) 0.0 Neutrophils % (Manual) 83 H Band Neutrophils % 6 H Lymphocytes % (Manual) 6 L Monocytes % (Manual) 4 Eosinophils % (Manual) 1 Toxic Granulation Present Platelet Estimate Normal RBC Morphology Normal Sodium 132 Potassium 3.5 L Chloride 102 Carbon Dioxide 23 Anion Gap 10 BUN 13 Creatinine 0.9 Est GFR ( Amer) > 60 Est GFR (Non-Af Amer) > 60 Random Glucose 109 Hemoglobin A1c Calcium 7.9 L Magnesium 2.0 Total Bilirubin 2.0 H AST 31 ALT 25 Alkaline Phosphatase 82 Total Protein 6.3 Albumin 3.0 L Globulin 3.3 Albumin/Globulin Ratio 0.9 L Triglycerides 403 H D Cholesterol 165 LDL Cholesterol Direct < 30 HDL Cholesterol 19 L Lipase 386 H TSH 3rd Generation 1.22 Urine Opiates Screen Positive H Urine Methadone Screen Negative Ur Barbiturates Screen Negative Ur Phencyclidine Scrn Negative Ur Amphetamines Screen Negative U Benzodiazepines Scrn Negative U Oth Cocaine Metabols Negative U Cannabinoids Screen Positive H 12/10/17 07:55 WBC RBC Hgb Hct MCV MCH MCHC RDW Plt Count MPV Neut % (Auto) Lymph % (Auto) [place] % (Auto) Eos % (Auto) Baso % (Auto) Neut # (Auto) Lymph # (Auto) [place] # (Auto) Eos # (Auto) Baso # (Auto) Neutrophils % (Manual) Band Neutrophils % Lymphocytes % (Manual) Monocytes % (Manual) Eosinophils % (Manual) Toxic Granulation Platelet Estimate RBC Morphology Sodium Potassium Chloride Carbon Dioxide Anion Gap BUN Creatinine Est GFR ( Amer) Est GFR (Non-Af Amer) Random Glucose Hemoglobin A1c 4.9 Calcium Magnesium Total Bilirubin AST ALT Alkaline Phosphatase Total Protein Albumin Globulin Albumin/Globulin Ratio Triglycerides Cholesterol LDL Cholesterol Direct HDL Cholesterol Lipase TSH 3rd Generation Urine Opiates Screen Urine Methadone Screen Ur Barbiturates Screen Ur Phencyclidine Scrn Ur Amphetamines Screen U Benzodiazepines Scrn U Oth Cocaine Metabols U Cannabinoids Screen Assessment & Plan - Assessment and Plan (Free Text) Plan: I personally saw and examined the patient at bedside independent of the resident staff and agree with the above assessment and plan with the following: Hypertriglyceride induced recurrent acute pancreatitis. No evidence of biliary etiology for pancreatitis and no surgical indications for cholecystectomy. All diagnostic images and reports were personally reviewed. No evidence of pancreatic necrosis or gallstones. Continue supportive care. Enteral nutrition when pain and anorexia improve. If condition worsens, obtain pancreatic protocol CT AP to assess for true necrosis / infection. I discussed the consequences of recurrent pancreatitis including risks for DM, chronic pain , intraabdominal collections, pancreatic dysfunction, pancreatic cancer, need for surgery. Counseled on diet and lifestyle modifications. PCP follow up as outpatient for medical management abnormal lipid panel.
[2017-12-09 22:51] LABS: BARBITURATES, UR NEGATIVE (NEGATIVE); BENZODIAZEPINES, UR NEGATIVE (NEGATIVE); PHENCYCLIDINE, UR NEGATIVE (NEGATIVE)
[2017-12-09 23:13] LABS: OPIATES, UR POSITIVE (NEGATIVE)
[2017-12-10] MEDS: Piperacill/Tazo 3.375gm in Dex 3.375 GM/50 ML BAG IVPB SCH ×4 (00:02→18:12)
[2017-12-10] MEDS: Morphine 4 MG/ML VIAL IV PRN ×4 (00:08→21:05)
--- NOTE | 2017-12-10 01:42 | CON ---
DATE: 12/09/2017 LOCATION: Room 571. HISTORY: This is a 52-year-old male admitted with acute pancreatitis and is now being referred for endocrine evaluation and management because of marked dyslipidemia as noted thereof. PAST MEDICAL HISTORY: Essentially unremarkable. SOCIAL HISTORY: The patient has a supportive family. Denies any substance use. No any alcohol use at this time. REVIEW OF SYSTEMS: As mentioned above admits to exotic bouts of dizziness and lightheadedness worse on the day of admission. His energy level has been fairly optimal. No chest pain, palpitations or PNDs. His oral intake has been variable with nausea, dyspepsia and vague upper abdominal pains progressively worsening with severe intense pain localized in the epigastric area radiating to the left flank area as noted. No alterations of bowel and urinary pattern. PHYSICAL EXAMINATION: GENERAL: This is an average-built male in no apparent distress. VITAL SIGNS: Blood pressure 140/80, pulse 70 beats per minute regular, temperature 98, respirations 20. Height is 5 feet 8 inches and weight is 160 pounds. HEENT: Head normocephalic. Eyes are anicteric with pink conjunctivae. Funduscopy not possible at this time. Ears, nose, and throat otherwise normal. NECK: Supple. Thyroid gland is normal size. No carotid bruits or any cervical adenopathy. CARDIOPULMONARY: Adynamic precordium. S1 and S2 are rapid and regular. LUNGS: Clear to auscultation. ABDOMEN: Flat, soft with positive bowel sounds. EXTREMITIES: No peripheral edema. Pulses are +2 bilaterally. LABORATORY DATA: Chemistries showed a BUN of 14, sodium 135, potassium 3.2, chloride 100, CO2 25, glucose 121, creatinine 1. His liver enzymes are slightly elevated. The triglyceride levels are 1401 with a cholesterol of 292 and a lipase level of 5077 and a repeat level of 963 today as noted. ASSESSMENT: This is a 52-year-old male with acute pancreatitis and the possibility always of an underlying familial combined dyslipidemia has to be excluded at this time. There is no history of any substance use as noted. PLAN: Plan of management as discussed with the patient and staff. We will continue the vigorous IV hydration as given and obtain serial chemistries and supplement accordingly as needed. As the patient is hemodynamically stable at this time, there is no indication for initiation of an insulin drip infusion, which will help with the impaired lipoprotein lipase enzyme typical in patients with marked hypertriglyceridemia. We will obtain lipoprotein fractionation to confirm and/or negate the presence of underlying familial combined dyslipidemia. We will also obtain serial chemistries and supplement accordingly as needed. We will continue the serial chemistries and serial lipids and lipase levels as ordered. We will highly recommend the initiation of fenofibrate and Reading-3 fatty acids given at the maximal dose even just prior to the patient's discharge for home. We will follow. Merary Munoz MD
[2017-12-10] MEDS: Lactated Ringer's 1,000 ML IV SCH ×2 (03:00→16:58)
[2017-12-10] MEDS: metroNIDAZOLE IV 500 mg/100 ml 500 MG/100 ML BAG IVPB SCH ×3 (06:24→21:05)
[2017-12-10 08:10] LABS: BASO % 0.1 % (0.0-2.0); EOS # 0.1 K/uL (0.0-0.7); HEMOGLOBIN 12.3 g/dL (12.0-18.0); LYMPH # 0.8 K/uL (1.0-4.3); LYMPH % 5.3 % (20.0-40.0); MEAN CORPUSCULAR HEMOGLOBIN 31.9 pg (27.0-31.0); MEAN CORPUSCULAR HGB CONC 35.8 g/dL (33.0-37.0); MEAN PLATELET VOLUME 7.7 fL (7.2-11.7); MONO # 0.7 K/uL (0.0-0.8); MONO % 4.5 % (0.0-10.0); NEUT # 13.6 K/uL (1.8-7.0); NEUT % 89.1 % (50.0-75.0); PLATELET COUNT 268 K/uL (130-400); RBC 3.85 Mil/uL (4.40-5.90); RED CELL DISTRIBUTION WIDTH 13.1 % (11.5-14.5); WHITE BLOOD COUNT 15.3 K/uL (4.8-10.8)
[2017-12-10 08:39] LABS: ALB/GLOB RATIO 0.9 (1.0-2.1); ALT/SGPT 25 U/L (21-72); AST/SGOT 31 U/L (17-59); BLOOD UREA NITROGEN 13 mg/dL (9-20); CALCIUM 7.9 mg/dl (8.6-10.4); GFR AFRICAN-AMERICAN > 60; GFR NON-AFRICAN AMERICAN > 60; HDL CHOLESTEROL 19 mg/dL (30-70); LIPASE 386 U/L (23-300)
[2017-12-10 08:46] LABS: LDL CHOLESTEROL < 30 mg/dL (0-129)
[2017-12-10 10:56] LABS: BANDS 6 % (0-2); EOSINOPHIL 1 % (0-4); LYMPHOCYTE 6 % (20-40); MONOCYTE 4 % (0-10); NEUTROPHIL 83 % (50-75); PLATELET ESTIMATE NORMAL (NORMAL); TOTAL CELLS COUNTED 100
[2017-12-10 10:57] LABS: TOXIC GRANULATION PRESENT
--- NOTE | 2017-12-10 14:42 | CP.PCM.PN ---
Subjective - Date & Time of Evaluation Date of Evaluation: 12/10/17 Time of Evaluation: 14:39 - Subjective Subjective: Sleeping. Comfortable Endocrine and surgery consults read and appreciated May advance diet Objective - Vital Signs/Intake and Output Vital Signs (last 24 hours): Temp Pulse Resp BP Pulse Ox 98.3 F 73 20 157/88 H 96 12/10/17 07:00 12/10/17 07:00 12/10/17 07:00 12/10/17 07:00 12/10/17 07:00 Intake and Output: 12/10/17 12/10/17 06:59 18:59 Intake Total 600 Balance 600 - Medications Medications: Current Medications Metronidazole (Flagyl) 500 mg in 100 mls @ 100 mls/hr IVPB Q8 ELYSSA PRN Reason: Protocol Last Admin: 12/10/17 13:35 Dose: 100 mls/hr Piperacillin Sod/Tazobactam Sod (Zosyn 3.375 Gm Iv Premix) 3.375 gm in 50 mls @ 100 mls/hr IVPB Q6H ELYSSA PRN Reason: Protocol Last Admin: 12/10/17 12:29 Dose: 100 mls/hr Lactated Ringer's (Lactated Ringer's) 1,000 mls @ 150 mls/hr IV .Q6H40M ELYSSA Last Admin: 12/10/17 03:00 Dose: 150 mls/hr Ketorolac Tromethamine (Toradol) 30 mg IVP Q6H PRN PRN Reason: Pain, moderate (4-7) Last Admin: 12/10/17 09:37 Dose: 30 mg Morphine Sulfate (Morphine) 4 mg IV Q6H PRN PRN Reason: Pain, severe (8-10) Last Admin: 12/10/17 12:30 Dose: 4 mg Pantoprazole Sodium (Protonix Inj) 40 mg IVP Q12H ELYSSA Last Admin: 12/10/17 11:42 Dose: 40 mg - Labs Labs: 12/10/17 07:55 12/10/17 07:55 - Constitutional Appears: No Acute Distress Assessment and Plan (1) Acute pancreatitis Assessment & Plan: Hypertriglycerdemic Pancreatitis- clinically improving Rec: Lipid management per medicine/Endocrine. Advance diet to low fat Status: Resolved
--- NOTE | 2017-12-10 16:52 | CP.PCM.PN ---
Subjective - Date & Time of Evaluation Date of Evaluation: 12/10/17 Time of Evaluation: 16:49 - Subjective Subjective: Progress Note Patient seen and examined at bedside. Patient states he is doing alright but does not want CT abdomen to have further specific workup on his pancreas. No acute events overnight. Objective - Vital Signs/Intake and Output Vital Signs (last 24 hours): Temp Pulse Resp BP Pulse Ox 98.2 F 83 20 155/94 H 96 12/10/17 15:00 12/10/17 15:00 12/10/17 15:00 12/10/17 15:00 12/10/17 15:00 Intake and Output: 12/10/17 12/10/17 06:59 18:59 Intake Total 600 Balance 600 - Medications Medications: Current Medications Metronidazole (Flagyl) 500 mg in 100 mls @ 100 mls/hr IVPB Q8 ELYSSA PRN Reason: Protocol Last Admin: 12/10/17 13:35 Dose: 100 mls/hr Piperacillin Sod/Tazobactam Sod (Zosyn 3.375 Gm Iv Premix) 3.375 gm in 50 mls @ 100 mls/hr IVPB Q6H ELYSSA PRN Reason: Protocol Last Admin: 12/10/17 12:29 Dose: 100 mls/hr Lactated Ringer's (Lactated Ringer's) 1,000 mls @ 150 mls/hr IV .Q6H40M [facility] Last Admin: 12/10/17 03:00 Dose: 150 mls/hr Ketorolac Tromethamine (Toradol) 30 mg IVP Q6H PRN PRN Reason: Pain, moderate (4-7) Last Admin: 12/10/17 09:37 Dose: 30 mg Morphine Sulfate (Morphine) 4 mg IV Q6H PRN PRN Reason: Pain, severe (8-10) Last Admin: 12/10/17 12:30 Dose: 4 mg Pantoprazole Sodium (Protonix Inj) 40 mg IVP Q12H [facility] Last Admin: 12/10/17 11:42 Dose: 40 mg - Labs Labs: 12/10/17 07:55 12/10/17 07:55 - Additional Findings Additional findings: - Head Exam Head Exam: NORMAL INSPECTION, NORMOCEPHALIC - Eye Exam Eye Exam: EOMI, Normal appearance Pupil Exam: NORMAL ACCOMODATION, PERRL - ENT Exam ENT Exam: Mucous Membranes Moist, Normal Exam - Neck Exam Neck exam: Positive for: Normal Inspection - Respiratory Exam Respiratory Exam: Clear to Auscultation Bilateral, NORMAL BREATHING PATTERN - Cardiovascular Exam Cardiovascular Exam: REGULAR RHYTHM, +S1, +S2. absent: Bradycardia, Tachycardia - GI/Abdominal Exam GI & Abdominal Exam: Normal Bowel Sounds, Soft. absent: Distended, Firm, Guarding, Tenderness Additional comments: Patient admits to mid-epigastric tenderness. no tenderness illicited on physical exam - Neurological Exam Neurological exam: Alert, CN II-XII Intact, Oriented x3 - Psychiatric Exam Psychiatric exam: Normal Affect, Normal Mood - Skin Skin Exam: Dry, Intact, Normal Color, Warm Assessment and Plan - Assessment and Plan (Free Text) Assessment: Assessment: 52M with history of chronic pancreatitis presents with nausea, vomiting was found to have pancreatitis. Acute pancreatitis, history of chronic pancreatitis Lipase downtrending but elevated Diet: liquid diet CT abdomen/pelvis: mild acute uncomplicated pancreatitis Abdominal US: no pancreatitis TG 1401 Cholesterol 292 LDL <30 Amylase 842 Leukocytosis 20.5 Lactate dehydrogenase 650 ALP 140 Per GI: patient may benefit from CT abdomen with arterial phase study and pancreas, Endo and Surgical Consult. CT abdomen with arterial phase study with pancreas cuts denied by patient 12/09 GI consult: Dr. Kerline Redd Consult: Dr. Munoz ID Consult: Dr. Llanes, continue zosyn and flagyl for now General Surgery Consult: Dr. Anderson no surgical interventions at this time. continue management per GI and Primary team. He Dr Anderson agrees with MRCP. Patient refused to go for MRCP and Pancreatic CT. Zosyn Flagyl LR @100cc/hr Hypokalemia repleted Leukocytosis Downtrending Prophylaxis SCD, patient can ambulate Protonix 40mg IVP QD Morphine 4mg IV Q4H PRN pain discussed with Dr. Davi Wade, DO PGY1
[2017-12-11] MEDS: Piperacill/Tazo 3.375gm in Dex 3.375 GM/50 ML BAG IVPB SCH ×2 (00:04→06:07)
[2017-12-11] MEDS: Lactated Ringer's 1,000 ML IV SCH (02:53)
[2017-12-11] MEDS: Morphine 4 MG/ML VIAL IV PRN ×2 (02:53→10:17)
[2017-12-11] MEDS: metroNIDAZOLE IV 500 mg/100 ml 500 MG/100 ML BAG IVPB SCH (06:07)
[2017-12-11 08:51] LABS: BASO % 0.1 % (0.0-2.0); EOS # 0.3 K/uL (0.0-0.7); EOS % 1.6 % (0.0-4.0); HEMOGLOBIN 11.3 g/dL (12.0-18.0); LYMPH # 0.9 K/uL (1.0-4.3); LYMPH % 5.6 % (20.0-40.0); MEAN CELL VOLUME 89.7 fL (80.0-94.0); MEAN CORPUSCULAR HEMOGLOBIN 31.3 pg (27.0-31.0); MEAN CORPUSCULAR HGB CONC 34.9 g/dL (33.0-37.0); MEAN PLATELET VOLUME 7.8 fL (7.2-11.7); MONO # 1.1 K/uL (0.0-0.8); NEUT # 13.7 K/uL (1.8-7.0); NEUT % 85.7 % (50.0-75.0); PLATELET COUNT 291 K/uL (130-400); RBC 3.62 Mil/uL (4.40-5.90)
[2017-12-11 08:55] VITALS: BP 150/81; PULSE 80; TEMP 98.4; O2SAT 96
[2017-12-11 09:07] LABS: ALB/GLOB RATIO 0.9 (1.0-2.1); ALT/SGPT 26 U/L (21-72); AST/SGOT 27 U/L (17-59); BLOOD UREA NITROGEN 11 mg/dL (9-20); CALCIUM 7.9 mg/dl (8.6-10.4); GFR AFRICAN-AMERICAN > 60; GFR NON-AFRICAN AMERICAN > 60
--- NOTE | 2017-12-11 09:39 | CP.PCM.PN ---
Subjective - Date & Time of Evaluation Date of Evaluation: 12/11/17 Time of Evaluation: 09:37 - Subjective Subjective: Less abdominal pain. Tolerating diet WBC remains elevated Objective - Vital Signs/Intake and Output Vital Signs (last 24 hours): Temp Pulse Resp BP Pulse Ox 98.4 F 80 20 150/81 96 12/11/17 08:00 12/11/17 08:00 12/11/17 08:00 12/11/17 08:00 12/11/17 08:00 - Medications Medications: Current Medications Metronidazole (Flagyl) 500 mg in 100 mls @ 100 mls/hr IVPB Q8 ELYSSA PRN Reason: Protocol Last Admin: 12/11/17 06:07 Dose: 100 mls/hr Piperacillin Sod/Tazobactam Sod (Zosyn 3.375 Gm Iv Premix) 3.375 gm in 50 mls @ 100 mls/hr IVPB Q6H ELYSSA PRN Reason: Protocol Last Admin: 12/11/17 06:07 Dose: 100 mls/hr Lactated Ringer's (Lactated Ringer's) 1,000 mls @ 100 mls/hr IV .Q10H [facility] Last Admin: 12/11/17 02:53 Dose: 100 mls/hr Morphine Sulfate (Morphine) 4 mg IV Q6H PRN PRN Reason: Pain, severe (8-10) Last Admin: 12/11/17 02:53 Dose: 4 mg Pantoprazole Sodium (Protonix Inj) 40 mg IVP Q12H ELYSSA Last Admin: 12/10/17 22:32 Dose: 40 mg - Labs Labs: 12/11/17 08:38 12/11/17 08:38 - Constitutional Appears: No Acute Distress - GI/Abdominal Exam GI & Abdominal Exam: Soft, Normal Bowel Sounds. absent: Guarding, Tenderness Assessment and Plan (1) Acute pancreatitis Assessment & Plan: Clinically improving advance diet as tolerated reinforced lipid management with patient will see intermittently unless called Status: Resolved
[2017-12-11] MEDS ORDERED: Potassium Chloride 20 mEq ER Tab PO ONE (10:15)
[2017-12-11 10:31] LABS: BANDS 2 % (0-2); EOSINOPHIL 1 % (0-4); LYMPHOCYTE 4 % (20-40); MONOCYTE 8 % (0-10); NEUTROPHIL 85 % (50-75); PLATELET ESTIMATE NORMAL (NORMAL); TOTAL CELLS COUNTED 100
[2017-12-11 10:32] LABS: ANISOCYTOSIS SLIGHT; HYPOCHROMIC SLIGHT; POLYCHROMIC SLIGHT
[2017-12-11 10:33] LABS: LARGE PLATELETS PRESENT
[2017-12-11 10:34] LABS: TOXIC GRANULATION PRESENT
--- NOTE | 2017-12-11 10:39 | CP.PCM.DIS ---
Provider - Provider Date of Admission: 12/07/17 10:20 Attending physician: Gilles Tomlinson MD Consults: Dr. Kerline Llanes Time Spent in preparation of Discharge (in minutes): 35 Diagnosis - Discharge Diagnosis (1) Chronic pancreatitis Status: Chronic Comment: patient is hydrating and expressing minimal pain Hospital Course - Lab Results Lab Results: Micro Results 12/08/17 17:13 Blood Blood Culture - Preliminary NO GROWTH AFTER 48 HOURS 12/07/17 14:41 Blood-Venous Blood Culture - Preliminary NO GROWTH AFTER 3 DAYS 12/08/17 13:39 Blood Blood Culture - Preliminary NO GROWTH AFTER 48 HOURS Most Recent Lab Values WBC 16.0 K/uL (4.8-10.8) H 12/11/17 08:38 RBC 3.62 Mil/uL (4.40-5.90) L 12/11/17 08:38 Hgb 11.3 g/dL (12.0-18.0) L 12/11/17 08:38 Hct 32.5 % (35.0-51.0) L 12/11/17 08:38 MCV 89.7 fL (80.0-94.0) 12/11/17 08:38 MCH 31.3 pg (27.0-31.0) H 12/11/17 08:38 MCHC 34.9 g/dL (33.0-37.0) 12/11/17 08:38 RDW 13.0 % (11.5-14.5) 12/11/17 08:38 Plt Count 291 K/uL (130-400) 12/11/17 08:38 MPV 7.8 fL (7.2-11.7) 12/11/17 08:38 Neut % (Auto) 85.7 % (50.0-75.0) H 12/11/17 08:38 Lymph % (Auto) 5.6 % (20.0-40.0) L 12/11/17 08:38 Floyd % (Auto) 7.0 % (0.0-10.0) 12/11/17 08:38 Eos % (Auto) 1.6 % (0.0-4.0) 12/11/17 08:38 Baso % (Auto) 0.1 % (0.0-2.0) 12/11/17 08:38 Neut # (Auto) 13.7 K/uL (1.8-7.0) H 12/11/17 08:38 Lymph # (Auto) 0.9 K/uL (1.0-4.3) L 12/11/17 08:38 [place] # (Auto) 1.1 K/uL (0.0-0.8) H 12/11/17 08:38 Eos # (Auto) 0.3 K/uL (0.0-0.7) 12/11/17 08:38 Baso # (Auto) 0.0 K/uL (0.0-0.2) 12/11/17 08:38 Neutrophils % (Manual) 85 % (50-75) H 12/11/17 08:38 Band Neutrophils % 2 % (0-2) 12/11/17 08:38 Lymphocytes % (Manual) 4 % (20-40) L 12/11/17 08:38 Monocytes % (Manual) 8 % (0-10) 12/11/17 08:38 Eosinophils % (Manual) 1 % (0-4) 12/11/17 08:38 Toxic Granulation Present 12/11/17 08:38 Platelet Estimate Normal (NORMAL) 12/11/17 08:38 Large Platelets Present 12/11/17 08:38 RBC Morphology Normal 12/10/17 07:55 Polychromasia Slight 12/11/17 08:38 Hypochromasia (manual) Slight 12/11/17 08:38 Anisocytosis (manual) Slight 12/11/17 08:38 Sodium 134 mmol/L (132-148) 12/11/17 08:38 Potassium 3.0 mmol/L (3.6-5.2) L 12/11/17 08:38 Chloride 100 mmol/L (98-107) 12/11/17 08:38 Carbon Dioxide 24 mmol/L (22-30) 12/11/17 08:38 Anion Gap 13 (10-20) 12/11/17 08:38 BUN 11 mg/dL (9-20) 12/11/17 08:38 Creatinine 0.9 mg/dL (0.8-1.5) 12/11/17 08:38 Est GFR ( Amer) > 60 12/11/17 08:38 Est GFR (Non-Af Amer) > 60 12/11/17 08:38 Random Glucose 106 mg/dL (75-110) 12/11/17 08:38 Hemoglobin A1c 4.9 % (4.2-6.5) 12/10/17 07:55 Lactic Acid 1.3 mmol/L (0.7-2.1) 12/08/17 13:39 Calcium 7.9 mg/dl (8.6-10.4) L 12/11/17 08:38 Magnesium 2.1 mg/dL (1.6-2.3) 12/11/17 08:38 Total Bilirubin 2.0 mg/dL (0.2-1.3) H 12/11/17 08:38 AST 27 U/L (17-59) 12/11/17 08:38 ALT 26 U/L (21-72) 12/11/17 08:38 Alkaline Phosphatase 78 U/L (38-126) 12/11/17 08:38 Lactate Dehydrogenase 650 U/L (313-618) H 12/07/17 06:42 Total Protein 6.4 g/dL (6.3-8.3) 12/11/17 08:38 Albumin 3.0 g/dL (3.5-5.0) L 12/11/17 08:38 Globulin 3.4 gm/dL (2.2-3.9) 12/11/17 08:38 Albumin/Globulin Ratio 0.9 (1.0-2.1) L 12/11/17 08:38 Triglycerides 403 mg/dL (0-149) H D 12/10/17 07:55 Cholesterol 165 mg/dL (0-199) 12/10/17 07:55 LDL Cholesterol Direct < 30 mg/dL (0-129) 12/10/17 07:55 HDL Cholesterol 19 mg/dL (30-70) L 12/10/17 07:55 Amylase 842 U/L (30-110) H D 12/08/17 08:12 Lipase 386 U/L (23-300) H 12/10/17 07:55 TSH 3rd Generation 1.22 mIU/L (0.46-4.68) 12/10/17 07:55 Urine Color Yellow (YELLOW) 05/22/18 06:47 Urine Clarity Hazy (Clear) 12/07/17 06:47 Urine pH 5.0 (5.0-8.0) 12/07/17 06:47 Ur Specific [place] 1.023 (1.003-1.030) 12/07/17 06:47 Urine Protein 2+ mg/dL (NEGATIVE) H 12/07/17 06:47 Urine Glucose (UA) Normal mg/dL (Normal) 12/07/17 06:47 Urine Ketones Negative mg/dL (NEGATIVE) 12/07/17 06:47 Urine Blood 1+ (NEGATIVE) H 12/07/17 06:47 Urine Nitrate Negative (NEGATIVE) 12/07/17 06:47 Urine Bilirubin Negative (NEGATIVE) 12/07/17 06:47 Urine Urobilinogen Normal mg/dL (0.2-1.0) 12/07/17 06:47 Ur Leukocyte Esterase Neg [place]/uL (Negative) 12/07/17 06:47 Urine WBC (Auto) 1 /hpf (0-5) 12/07/17 06:47 Urine RBC (Auto) 2 /hpf (0-3) 12/07/17 06:47 Urine Bacteria Rare (<OCC) 12/07/17 06:47 Urine Opiates Screen Positive (NEGATIVE) H 12/09/17 22:21 Urine Methadone Screen Negative (NEGATIVE) 12/09/17 22:21 Ur Barbiturates Screen Negative (NEGATIVE) 12/09/17 22:21 Ur Phencyclidine Scrn Negative (NEGATIVE) 12/09/17 22:21 Ur Amphetamines Screen Negative (NEGATIVE) 12/09/17 22:21 U Benzodiazepines Scrn Negative (NEGATIVE) 12/09/17 22:21 U Oth Cocaine Metabols Negative (NEGATIVE) 12/09/17 22:21 U Cannabinoids Screen Positive (NEGATIVE) H 12/09/17 22:21 HEATH Nuclear Membr Pat Negative (Negative) 12/08/17 08:12 - Hospital Course Hospital Course: HPI 52 year old male presents to the ED with c/o abdominal pain which started this morning associated with multiple episodes of non-bilious non-bloody vomiting. Pain is localized to mid-epigastric area without radiation or rebound tenderness. Patient had been hospitalized for acute pancreatitis 3 weeks ago. In ED patient had CT abdomen/pelvis showing mild pancreatitis. US of abdomen showed no gallstones and no pancreatitis. Hospital course: Patient expressed pain throughout stay. Patient tolerated diet as it was advanced. Patient was encouraged to hydrate more. Patient was also given fluids starting at 250cc/hr and downtrending as patient continued to advance diet and lipase was downtrending. Patient was on antibiotics to cover for gram negative and anaerobic bacteria. Patient refused CT abdomen with pancreatic cuts ( pancreatic protocol) for further evaluation. Dr. Kelsie Anderson was consulted: no surgical management at this time as imaging did not suggest necrotic pancreas. During hospital stay, patient had lipase of 5077 downtrended minimally the next day and then went back down to 900s on the third day. Patient's lipid panel showed high triglycerides and cholesterol. Patient has had triglycerides in 2000s previous admission. Patient was discharged on Lopid and told to follow up with Primary care doctor and GI doctor for further medical management. Above is a brief summary of patient's stay. Please see EMR for further information - Date & Time of H&P Date of H&P: 12/11/17 Time of H&P: 11:24 Discharge Exam - Head Exam Head Exam: ATRAUMATIC, NORMAL INSPECTION, NORMOCEPHALIC - Eye Exam Eye Exam: EOMI, Normal appearance - ENT Exam ENT Exam: Mucous Membranes Moist, Normal Exam - Respiratory Exam Respiratory Exam: NORMAL BREATHING PATTERN. absent: Accessory Muscle Use, Clear to PA & Lateral - Cardiovascular Exam Cardiovascular Exam: REGULAR RHYTHM, +S1, +S2. absent: Bradycardia, Tachycardia - GI/Abdominal Exam GI & Abdominal Exam: Normal Bowel Sounds, Soft. absent: Distended, Firm, Guarding, Hyperactive Bowel Sounds, Hypoactive Bowel Sounds, Rebound, Rigid, Unremarkable - Extremities Exam Extremities exam: full ROM, normal inspection - Back Exam Back exam: FULL ROM, NORMAL INSPECTION. absent: CVA tenderness (L), CVA tenderness (R) - Neurological Exam Neurological exam: CN II-XII Intact, Oriented x3 - Psychiatric Exam Psychiatric exam: Normal Affect, Normal Mood - Skin Skin Exam: Dry, Normal Color, Warm Discharge Plan - Discharge Medications Prescriptions: Gemfibrozil [Lopid] 600 mg PO BID #60 tab - Follow Up Plan Condition: FAIR Disposition: HOME/ ROUTINE Instructions: Smoking: Not Just Harmful to Your Lungs and Heart, Pancreatitis ( DC), Acute Abdomen (Belly Pain), Adult (DC), Quitting Smoking, Leukocytosis (DC) , Pancreatitis (DC) Additional Instructions: follow up with [facility] or follow up primary care doctor for further management Continue dietary changes for decreasing cholesterol continue oral hydration if patient feels extreme abdominal pain, nausea, vomiting, return to emergency room for further work up Follow up with GI doctor for further workup for pancreatitis history. Referrals: Merary Munoz MD [Medical Doctor] - Damien Churchill MD [Staff Provider] - Yakov Woods MD [Staff Provider] -
--- NOTE | 2017-12-14 07:17 | CON ---
DATE: 12/10/2017 HISTORY OF PRESENT ILLNESS: The patient is a 52-year-old male. He presented with abdominal pain. He had nonbilious/nonbloody vomiting and was having epigastric pain without radiation. He was recently with pancreatitis. The patient also tells me he has high triglycerides. He had a CAT scan which showed pancreatitis. He also had bandemia. He was placed on IV antibiotics today. He is still n.p.o. and he says the pain is slightly better. He says his triglycerides are 2000 on admission last time. PAST MEDICAL HISTORY: Significant for chronic pancreatitis, history of hernia repair. FAMILY HISTORY: Noncontributory. SOCIAL HISTORY: He says he smokes marijuana. Denies any cigarettes or cigar. Denies alcohol abuse. Denies other smoking. ALLERGIES: NO ALLERGIES. MEDICATIONS: Takes no medications. REVIEW OF SYSTEMS: He denied any fevers at home, but he says he felt feverish. Had no weight gain or weight loss. Denies any ear, nose, throat problem. Denies any chest pain. No shortness of breath. Has no cough or cold going on. He did come in with abdominal pain and vomiting, nonbloody and nonbilious. He denied any cramping, diarrhea or change in bowel habits or any belching or bloating. Denies any back pains at this time. His past medical history is significant for smoking marijuana. Denies any cardiac, respiratory, neurological, musculoskeletal or -related or psych issues or surgery. No anesthesia. He has mainly GI symptoms with pancreatitis. MEDICATIONS: He is on Toradol . He was on Flagyl, morphine, Protonix and Zosyn at this time. PHYSICAL EXAMINATION: VITAL SIGNS: I find his temperature is 98.2, pulse is 83, blood pressure 155/94, respirations are 20, and saturations 96%. GENERAL: He says he is still in pain. HEENT: Head is atraumatic, normocephalic. Pupils are reacting to light. NECK: Supple. LUNGS: Clear. No crackles or rales present. HEART: S1 and S2 is regular. ABDOMEN: Soft, but mild epigastric tenderness present. No guarding, no rigidity. EXTREMITIES: No edema, clubbing or cyanosis. LABORATORY DATA AND IMAGING STUDIES: White count is 15.3, hemoglobin 12.3, hematocrit 34.3, platelet count is 268; neutrophils are 83. Sodium 132, potassium 3.5, chloride is 102, CO2 is 23, BUN is 10 and creatinine 0.9. Pancreatitis is most important to keep the potassium up and to see the phosphorus level. I see his potassium is only 3.5. Amylase and lipase, he came in with a very high value. Lipase was 963 and today it is 363. His opiate was positive and cannabinoid screening was positive. He does smoke marijuana and pain medications . He had abdominal and pelvic CT done, which showed consistent with mild uncomplicated pancreatitis, cannot rule out pancreatic necrosis in the absence of the image of pancreas, incidental small bilateral cortical cysts are present. He also had a chest x-ray yesterday, and the chest x-ray yesterday shows diminished bronchial vascular marking, however, bilateral basal infiltrates and atelectasis suggested mildly. Limited CSF pattern is not excluded in the interval. So, at this time, he is on Zosyn and Flagyl. We will discontinue the Flagyl. He does give history of having hypertriglyceridemia. We will try to see all his recent chemistry and his triglycerides that is one I want to see. We will have to pull up the other charts on the computer, but at this time, I would continue the Zosyn and discontinue the Flagyl when the patient starts to eat and is pain free and his amylase/lipase comes down, then Zosyn can be discontinued. Right now, blood cultures are negative, but I think it is related to pancreatitis, and GI is also following. I will be away till 12/17/2017. Dr. Vital will be following. If need be, please call him. We are awaiting for the [facility] report. Samina Llanes MD
--- NOTE | 2017-12-14 09:29 | PN ---
DATE: 12/10/2017 ENDO FOLLOWUP NOTE LOCATION: Room 571. SUBJECTIVE: This is a 52-year-old male with recent acute pancreatitis and associated marked dyslipidemia and is now being followed closely for metabolic management. LABORATORY DATA: His repeat chemistries today shows a BUN of 13, sodium 132, potassium 3.5, chloride 102, CO2 23, glucose 109, and creatinine 0.9. His repeat triglycerides have come down to 403 mg/dL with an initial level of 1401. His cholesterol is down now to 165 as noted, lipase level is also down to 386 as noted. ASSESSMENT AND PLAN: We would recommend advancing his diet now to a low-fat, low-cholesterol, heart healthy diet as ordered. We will also recommend initiation of fenofibrate given as 145 mg daily at bedtime to start tonight. We will also recommend the initiation of omega-3 fatty acids given as 2 gm p.o. b.i.d. before meals as ordered. We will obtain serial chemistries and supplement accordingly as needed. We will follow with you. Merary Munoz MD
== END 2017-12-11 12:47 | disposition home or self-care (01) | DRG 440 ==
LOC: C.ER 05:49 → C.9E 10:20 → C.5S 11:02 → C.9E 11:17 → C.5S 11:32
PROVIDERS: ADMIT Internal Medicine; ATTEND Internal Medicine
DX: K85.90 Acute pancreatitis without necrosis or infection, unspecified (principal); K86.1 Other chronic pancreatitis; F12.90 Cannabis use, unspecified, uncomplicated; E87.6 Hypokalemia; E78.5 Hyperlipidemia, unspecified; E78.1 Pure hyperglyceridemia; D72.825 Bandemia; F11.10 Opioid abuse, uncomplicated

== ENCOUNTER 2018-03-12 12:31 | Inpatient (IN) | payer MEDICAID ==
[2018-03-12] MEDS ORDERED: SODIUM CHLORIDE 0.9% IV ONE (12:59)
--- NOTE | 2018-03-12 12:59 | C.PDOC ---
History Of Present Illness 52 year old male presents to the emergency department stating "I think I have pancreatitis again", patient complains of onset of symptoms at 9am this morning. Patient has a PMHx of chronic pancreatitis with alcohol use in the past. Patient reports multiple episodes of vomiting, and complains of abdominal pain due to the vomiting. Patient denies fever. "I THINK I HAVE PANCREATITIS AGAIN" ONSET 0900. PREV ADMISSIONS FOR SAME, PMH of chronic pancreatitis and ETOH use in the remote past. MULT VOMITING, CO ABD PAIN DUE TO VOMITING. NO FEVER. PSH NEG EXAM MOD DIST NONTOXIC HEENT MM DRY, ANICTERIC ABD NEG REMAINDER NEG Time Seen by Provider: 03/12/18 12:48 Chief Complaint (Nursing): Abdominal Pain History Per: Patient History/Exam Limitations: no limitations Onset/Duration Of Symptoms: Hrs, Waxing/Waning Associated Symptoms: Vomiting, Other (abdominal pain). denies: Fever Past Medical History Reviewed: Historical Data, Nursing Documentation, Vital Signs Vital Signs: Last Vital Signs Temp 97.9 F 03/12/18 12:47 Pulse 70 03/12/18 14:44 Resp 16 03/12/18 14:44 BP 157/92 H 03/12/18 14:44 Pulse Ox 98 03/12/18 14:47 - Medical History PMH: Pancreatitis Denies: Chronic Kidney Disease Surgical History: No Surg Hx Family History: States: Unknown Family Hx - Social History Hx Tobacco Use: No Hx Alcohol Use: Yes (former) Hx Substance Use: Yes - Immunization History Hx Tetanus Toxoid Vaccination: No Hx Influenza Vaccination: No Hx Pneumococcal Vaccination: No Review Of Systems Except As Marked, All Systems Reviewed And Found Negative. Constitutional: Negative for: Fever Gastrointestinal: Positive for: Vomiting, Abdominal Pain Physical Exam - Physical Exam Appears: Non-toxic, In Acute Distress (mild distress) Skin: Warm Head: Atraumatic, Normacephalic Eye(s): bilateral: Normal Inspection, Other (anicteric) Oral Mucosa: Dry Neck: Normal, Supple Chest: Symmetrical Cardiovascular: Rhythm Regular, No Murmur Respiratory: Normal Breath Sounds, No Rales, No Rhonchi, No Wheezing Gastrointestinal/Abdominal: Normal Exam, Soft, No Tenderness, No Distention, No Guarding, No Rebound Extremity: Normal ROM Neurological/Psych: Oriented x3, Normal Speech, Normal Cognition ED Course And Treatment - Laboratory Results Result Diagrams: 03/12/18 13:19 03/12/18 13:19 O2 Sat by Pulse Oximetry: 98 (RA) Pulse Ox Interpretation: Normal - Radiology CXR: Viewed By Me, Read By Radiologist CXR Interpretation: Yes: No Acute Disease Progress Note: Plan: CT Abdomen and Pelvis with IV Contrast. CMP. Lipase. CBC. CXR. Morphine 4mg IVP. Pepcid 20mg IVP. Protonix 40mg IVP. NaCl IV Fluids. Zofran 8mg IVP. Urinalysis Progress - Re-Evaluation Re-evaluation Note: 03/12/18 14:00 PER RN, PT REFUSING CT. APPEARS COMFORTABLE. PERSIST HTN. - Data Reviewed Data Reviewed: Lab, Diagnostic imaging, Old records Disposition Counseled Patient/Family Regarding: Diagnosis, Need For Followup - Disposition Disposition: HOSPITALIZED Disposition Time: 15:14 Condition: STABLE Forms: Profilepasser (Armenian) - POA Present On Arrival: Poor Glycemic Control - Clinical Impression Clinical Impression: Pancreatitis, acute - Scribe Statement The provider has reviewed the documentation as recorded by the Scribe (Raffi Cardona) Provider Attestation: All medical record entries made by the Scribe were at my direction and personally dictated by me. I have reviewed the chart and agree that the record accurately reflects my personal performance of the history, physical exam, medical decision making, and the department course for this patient. I have also personally directed, reviewed, and agree with the discharge instructions and disposition.
[2018-03-12] MEDS ORDERED: Morphine 4 MG/ML VIAL ONE (13:11)
[2018-03-12] MEDS ORDERED: Sodium Chloride 0.9% 2,000 ML ONE (13:12)
[2018-03-12] MEDS ORDERED: Iohexol 300 100 ML IJ ONE (13:40)
[2018-03-12 13:42] LABS: BASO % 0.3 % (0.0-2.0); EOS # 0.4 K/uL (0.0-0.7); EOS % 2.5 % (0.0-4.0); LYMPH # 1.7 K/uL (1.0-4.3); LYMPH % 11.9 % (20.0-40.0); MEAN CORPUSCULAR HEMOGLOBIN 31.1 pg (27.0-31.0); MEAN CORPUSCULAR HGB CONC 35.6 g/dL (33.0-37.0); MEAN PLATELET VOLUME 8.2 fL (7.2-11.7); MONO # 0.6 K/uL (0.0-0.8); MONO % 4.1 % (0.0-10.0); NEUT # 11.7 K/uL (1.8-7.0); NEUT % 81.2 % (50.0-75.0); NRBC % 0.1 % (0.0-2.0); RBC 5.07 Mil/uL (4.40-5.90); RED CELL DISTRIBUTION WIDTH 13.3 % (11.5-14.5); WHITE BLOOD COUNT 14.4 K/uL (4.8-10.8)
[2018-03-12 13:43] LABS: HEMOGLOBIN 15.8 g/dL (12.0-18.0); MEAN CELL VOLUME 87.5 fL (80.0-94.0)
[2018-03-12 14:26] LABS: CALCIUM 9.3 mg/dl (8.6-10.4); GFR NON-AFRICAN AMERICAN > 60
--- NOTE | 2018-03-12 14:33 | RAD ---
Date of service: 03/12/2018 PROCEDURE: CHEST RADIOGRAPH, 1 VIEW HISTORY: Abdominal pain COMPARISON: 12/09/2017. FINDINGS: LUNGS: The lungs are well inflated and clear. PLEURA: No pneumothorax or pleural fluid seen. CARDIOVASCULAR: Normal. OSSEOUS STRUCTURES: No significant abnormalities. VISUALIZED UPPER ABDOMEN: Normal. OTHER FINDINGS: None. IMPRESSION: No active pulmonary disease.
[2018-03-12 14:37] LABS: ALBUMIN 4.7 g/dL (3.5-5.0); ALT/SGPT 35 U/L (21-72); AST/SGOT 36 U/L (17-59); BLOOD UREA NITROGEN 16 mg/dL (9-20)
[2018-03-12 14:45] LABS: LIPASE 3064 U/L (23-300)
[2018-03-12 15:07] LABS: URINE BILIRUBIN NEGATIVE (NEGATIVE); URINE CLARITY Clear (Clear); URINE COLOR Straw (YELLOW); URINE GLUCOSE (UA) NORMAL (Normal); URINE LEUKOCYTE ESTERASE NEG Leu/uL (Negative); URINE PROTEIN NEGATIVE (NEGATIVE); URINE UROBILINOGEN NORMAL mg/dL (0.2-1.0)
[2018-03-12 15:11] LABS: URINE BLOOD TRACE (NEGATIVE)
[2018-03-12 15:33] LABS: VENOUS BLOOD GAS BASE EXCESS -5.7 mmol/L (0.0-2.0); VENOUS BLOOD GAS PCO2 43 mmHg (40-60); VENOUS BLOOD GAS PO2 36 mm/Hg (30-55); VENOUS BLOOD PH 7.29 (7.32-7.43)
[2018-03-12] MEDS: Dextrose 5%/0.45% NS 1,000 ML IV SCH (17:50)
[2018-03-13] MEDS: Dextrose 5%/0.45% NS 1,000 ML IV SCH ×3 (04:38→23:53)
[2018-03-13] MEDS: Enoxaparin 40 mg Syringe SC SCH (09:57)
--- NOTE | 2018-03-13 14:11 | PN ---
Copied To: Harjinder Seo MD Attending MD: Harjinder Soe MD DATE: 03/13/2018 LOCATION: 365, bed B. SUBJECTIVE: This 52-year-old male was seen and examined initially for GI consultation on 03/12/2018, reexamined again today without significant reported clinical changes with intermittent period of abdominal pain. The entire chart is reviewed including but not limited to the most recent lab and radiology study results, current and the previous medication list, current and the previous medical events, and today's lab results are still pending, but yesterday lab results showed [place] 3064, with leukocytosis of 14.4, but normal hemoglobin and hematocrit. PHYSICAL EXAMINATION: GENERAL: A 52-year-old male who appears to be somewhat awake, alert, and oriented. VITAL SIGNS: The patient is afebrile, with pulse of 64, respiratory rate 20-22, and blood pressure of 130/76. HEENT: Showed pale dry oral mucous membranes. Nonicteric sclerae. LUNGS: Few scattered crepitation. Decreased air entry at bases. HEART: Positive S1 and S2. ABDOMEN: Soft, with mild generalized tenderness. No mass or organomegaly. No rebound tenderness or guarding. EXTREMITIES: Without edema, clubbing, or cyanosis. NEUROLOGIC: No reported new neurological deficits, sensory or motor. IMPRESSION: 1. Recurrent acute on top of chronic pancreatitis. 2. Alcoholism inducing pancreatitis by history. 3. Reported history of substance abuse. 4. Re-exacerbation of peptic ulcer disease. 5. Metabolic acidosis, most likely secondary to above. 6. Episodes of hyperglycemia of unclear etiology. SUGGESTIONS: 1. Agree with your plan. 2. Repeat serum lipase, amylase level. 3. Keep the patient n.p.o. 4. Further recommendations to follow. Harjinder Seo MD
--- NOTE | 2018-03-13 23:25 | CP.PCM.HP ---
Past Patient History - Past Medical History & Family History Past Medical History?: Yes - Past Social History Smoking Status: Former Smoker - CARDIAC Hx Cardiac Disorders: No - PULMONARY Hx Respiratory Disorders: No - NEUROLOGICAL Hx Neurological Disorder: No - HEENT Hx HEENT Problems: No - RENAL Hx Chronic Kidney Disease: No - ENDOCRINE/METABOLIC Hx Endocrine Disorders: No - HEMATOLOGICAL/ONCOLOGICAL Hx Blood Disorders: No - INTEGUMENTARY Hx Dermatological Problems: No - MUSCULOSKELETAL/RHEUMATOLOGICAL Hx Musculoskeletal Disorders: No Hx Falls: No - GASTROINTESTINAL Hx Pancreatitis: Yes - GENITOURINARY/GYNECOLOGICAL Hx Genitourinary Disorders: No - PSYCHIATRIC Hx Substance Use: No - SURGICAL HISTORY Hx Surgeries: No Other/Comment: Hernia repair 5 yrs old - ANESTHESIA Hx Anesthesia: Yes Hx Anesthesia Reactions: No (not sure) Meds Allergies/Adverse Reactions: Allergies Allergy/AdvReac Type Severity Reaction Status Date / Time No Known Allergies Allergy Verified 12/07/17 06:00 Results - Vital Signs Recent Vital Signs: Last Vital Signs Temp 98.4 F 03/13/18 16:00 Pulse 67 03/13/18 16:00 Resp 20 03/13/18 16:00 BP 132/79 03/13/18 16:00 Pulse Ox 98 03/13/18 16:00 - Labs Result Diagrams: 03/12/18 13:19 03/12/18 13:19
[2018-03-14] MEDS: Dextrose 5%/0.45% NS 1,000 ML IV SCH ×2 (02:43→09:42)
[2018-03-14 08:07] LABS: AMYLASE 100 U/L (30-110); LIPASE 182 U/L (23-300)
--- NOTE | 2018-03-14 09:40 | US ---
Date of service: 03/14/2018 HISTORY: ABDOMINAL PAIN COMPARISON: None. TECHNIQUE: Sonographic evaluation of the abdomen. FINDINGS: LIVER: Measures 15.6 cm. Diffusely increased echogenicity of the liver parenchyma. Consistent with fatty infiltration. Smooth contour. No mass. No intrahepatic biliary ductal dilatation. Normal hepatopetal portal venous flow. GALLBLADDER: Unremarkable. No gallstones. COMMON BILE DUCT: Measures 3 mm. No stones. No dilatation. PANCREAS: Unremarkable as visualized. No mass. No ductal dilatation. RIGHT KIDNEY: Measures 10.4cm. Normal echogenicity. Pedunculated lower pole cortical cyst, 1.8 x 1.5 x 1.0 cm. No calculus or hydronephrosis. LEFT KIDNEY: Measures 10.3cm. Normal echogenicity. No calculus, mass, or hydronephrosis. SPLEEN: Normal in size and contour. No mass. AORTA: No aneurysmal dilatation. IVC: Unremarkable. OTHER FINDINGS: None. IMPRESSION: Fatty liver. Right lower pole renal cortical cyst. No additional abnormality.
[2018-03-14] MEDS: Enoxaparin 40 mg Syringe SC SCH (09:45)
--- NOTE | 2018-03-14 10:04 | HP ---
Copied To: Hermes Faith MD Attending MD: Hermes Faith MD CHIEF COMPLAINT: Left upper quadrant abdominal pain. HISTORY OF PRESENT ILLNESS: This is a 52-year-old male, who has prior history of pancreatitis; about 10 years ago last episode and he has not been drinking since then. He has been complaint. He does not have any other health problems and he visits his primary care physician rarely, and the patient is doing well. He has been healthy otherwise until the day of admission. He had left upper quadrant abdominal pain, along with that he had nausea and no vomiting. He denies any radiation of pain to the back. He denies any hematemesis, melena, or hematochezia. He denies any history of hemoptysis. He denies any cough, sore throat, or runny nose. He denies any history of right upper quadrant abdominal pain, mostly it is in the left upper quadrant. He denies any history of dysuria, hematuria, or pyuria. He denies any sneezing, itchy eyes, or itchy nose. He denies any history of skin rash. He denies any history of hip pain, knee pain, elbow pain, neck pain, or headache. PAST MEDICAL HISTORY: Pancreatitis. SOCIAL HISTORY: Nonsmoker and non-EtOH user. CURRENT MEDICATIONS: None. PHYSICAL EXAMINATION: GENERAL: A middle-aged male in no acute distress. VITAL SIGNS: Blood pressure 132/79, pulse 67, respiratory rate 20, and temperature 98.4. SKIN: No bruises. No purpura. No petechiae. HEENT: Atraumatic, normocephalic. Negative pallor. Negative jaundice. Extraocular movements are intact. NECK: Supple. No JVD. No lymph nodes. No thyromegaly. No carotid bruits. CHEST WALL: Bilateral symmetrical expansion. No tenderness. No deformity. LUNGS: Bilaterally clear. No rales. No rhonchi. CARDIOVASCULAR SYSTEM: S1 and S2 regular. No heave. No thrill. ABDOMEN: Soft. Nontender. Bowel sounds are positive. RECTAL: No masses. No bleed. GENITAL: Normal. EXTREMITIES: No clubbing, cyanosis, or edema. CENTRAL NERVOUS SYSTEM: Awake, alert, and oriented x3. Cranial nerves II-XII are normal. Power 5/5 x4. Plantars are downgoing. ASSESSMENT: 1. Acute pancreatitis. 2. Dehydration. PLAN: Admit. Detailed orders written. Seen and examined. Hermes Faith MD
[2018-03-14 10:42] VITALS: BP 125/77; PULSE 56; RESP 20; TEMP 98.1; O2SAT 96
--- NOTE | 2018-03-14 14:57 | CP.PCM.PN ---
Subjective - Date & Time of Evaluation Date of Evaluation: 03/14/18 Time of Evaluation: 14:57 - Subjective Subjective: awake, alert, no acute pain, NAD. Objective - Vital Signs/Intake and Output Vital Signs (last 24 hours): Temp Pulse Resp BP Pulse Ox 98.1 F 56 L 20 125/77 96 03/14/18 08:00 03/14/18 08:00 03/14/18 08:00 03/14/18 08:00 03/14/18 08:00 Intake and Output: 03/14/18 03/14/18 06:59 18:59 Intake Total 1740 Balance 1740 - Medications Medications: Current Medications Acetaminophen (Tylenol 325mg Tab) 650 mg PO Q6 PRN PRN Reason: Headache Last Admin: 03/14/18 12:38 Dose: 650 mg Enoxaparin Sodium (Lovenox) 40 mg SC DAILY [facility] Last Admin: 03/14/18 09:45 Dose: Not Given Famotidine (Pepcid) 20 mg IVP Q12 [facility] Last Admin: 03/14/18 09:42 Dose: 20 mg Dextrose/Sodium Chloride (Dextrose 5%/0.45% Ns 1000 Ml) 1,000 mls @ 100 mls/hr IV .Q10H [facility] Last Admin: 03/14/18 09:42 Dose: Not Given Morphine Sulfate (Morphine) 2 mg IVP Q4 PRN PRN Reason: Pain, moderate (4-7) Last Admin: 03/12/18 22:35 Dose: 2 mg Ondansetron HCl (Zofran Inj) 4 mg IVP Q4H PRN PRN Reason: Nausea/Vomiting - Labs Labs: 03/12/18 13:19 03/12/18 13:19 Assessment and Plan - Assessment and Plan (Free Text) Assessment: Patient admitted with acute pancreatitis, seen and examined. Alert and oriented x3, Lipase 182 today. Denies abdominal pain or nausea and is tolerating bland diet. Discussed with DR Gan, plan to discharge home today. Advised to advance the diet slowly and follow up with PMD in 1 week.
--- NOTE | 2018-03-14 16:08 | PN ---
Copied To: Harjinder Seo MD Attending MD: Harjinder Soe MD DATE: 03/14/2018 SUBJECTIVE: This is a 52-year-old male seen and examined in rounds with less abdominal pain, less abdominal distention without reported chest pain, palpitation or significant shortness of breath. The entire chart is reviewed including, but not limited to the most recent lab and radiology study results, current and the previous medication lists, current and the previous medical events, and today's lab results showed normal lipase and amylase level as well as ultrasound of the abdomen with only fatty infiltrate of the liver and the renal cysts. PHYSICAL EXAMINATION: GENERAL: A 52-year-old male, awake, alert, oriented with less complaint of abdominal pain. VITAL SIGNS: Afebrile with pulse of 62, respiratory rate 20 and 22, blood pressure 132/74. HEENT: Showed pale, dry oral mucous membrane. Nonicteric sclerae. LUNGS: Few scattered crepitation. Decreased air entry at bases. HEART: Positive S1 and S2. ABDOMEN: Soft. Bowel sounds are hypoactive. No masses or organomegaly. No reported tenderness or guarding. EXTREMITIES: Without edema, clubbing or cyanosis. NEUROLOGIC: No reported new neurological deficits, sensory or motor. IMPRESSION: 1. Alcoholism. 2. Alcohol-induced pancreatitis. 3. Re-exacerbation of peptic ulcer disease. 4. Reported history of substance abuse. 5. Metabolic acidosis secondary to above, improving. SUGGESTIONS: 1. Continue current management. 2. The patient needs psychiatric evaluation. 3. Follow up in cancer markers. Harjinder Seo MD
--- NOTE | 2018-03-14 22:18 | CP.PCM.DIS ---
Provider - Provider Date of Admission: 03/12/18 15:15 Attending physician: Hermes Faith MD Hospital Course - Lab Results Lab Results: Most Recent Lab Values WBC 14.4 K/uL (4.8-10.8) H 03/12/18 13:19 RBC 5.07 Mil/uL (4.40-5.90) 03/12/18 13:19 Hgb 15.8 g/dL (12.0-18.0) D 03/12/18 13:19 Hct 44.3 % (35.0-51.0) 03/12/18 13:19 MCV 87.5 fL (80.0-94.0) D 03/12/18 13:19 MCH 31.1 pg (27.0-31.0) H 03/12/18 13:19 MCHC 35.6 g/dL (33.0-37.0) 03/12/18 13:19 RDW 13.3 % (11.5-14.5) 03/12/18 13:19 Plt Count 317 K/uL (130-400) 03/12/18 13:19 MPV 8.2 fL (7.2-11.7) 03/12/18 13:19 Neut % (Auto) 81.2 % (50.0-75.0) H 03/12/18 13:19 Lymph % (Auto) 11.9 % (20.0-40.0) L 03/12/18 13:19 [place] % (Auto) 4.1 % (0.0-10.0) 03/12/18 13:19 Eos % (Auto) 2.5 % (0.0-4.0) 03/12/18 13:19 Baso % (Auto) 0.3 % (0.0-2.0) 03/12/18 13:19 Neut # (Auto) 11.7 K/uL (1.8-7.0) H 03/12/18 13:19 Lymph # (Auto) 1.7 K/uL (1.0-4.3) 03/12/18 13:19 [place] # (Auto) 0.6 K/uL (0.0-0.8) 03/12/18 13:19 Eos # (Auto) 0.4 K/uL (0.0-0.7) 03/12/18 13:19 Baso # (Auto) 0.0 K/uL (0.0-0.2) 03/12/18 13:19 pO2 36 mm/Hg (30-55) 03/12/18 15:28 VBG pH 7.29 (7.32-7.43) L 03/12/18 15:28 VBG pCO2 43 mmHg (40-60) 03/12/18 15:28 VBG HCO3 19.5 mmol/L 03/12/18 15:28 VBG Total CO2 22.0 mmol/L (22-28) 03/12/18 15:28 VBG O2 Sat (Calc) 68.4 % (40-65) H 03/12/18 15:28 VBG Base Excess -5.7 mmol/L (0.0-2.0) L 03/12/18 15:28 VBG Potassium 5.0 mmol/L (3.6-5.2) 03/12/18 15:28 Sodium 142.0 mmol/l (132-148) 03/12/18 15:28 Chloride 114.0 mmol/L (98-107) H 03/12/18 15:28 Glucose 90 mg/dl (75-110) 03/12/18 15:28 Lactate 2.3 mmol/L (0.7-2.1) H 03/12/18 15:28 Sodium 142 mmol/L (132-148) 03/12/18 13:19 Potassium 4.7 mmol/L (3.6-5.2) 03/12/18 13:19 Chloride 108 mmol/L (98-107) H 03/12/18 13:19 Carbon Dioxide 17 mmol/L (22-30) L 03/12/18 13:19 Anion Gap 22 (10-20) H 03/12/18 13:19 BUN 16 mg/dL (9-20) 03/12/18 13:19 Creatinine 1.1 mg/dL (0.8-1.5) 03/12/18 13:19 Est GFR ( Amer) > 60 03/12/18 13:19 Est GFR (Non-Af Amer) > 60 03/12/18 13:19 Random Glucose 121 mg/dL (75-110) H 03/12/18 13:19 Calcium 9.3 mg/dl (8.6-10.4) 03/12/18 13:19 Total Bilirubin 1.0 mg/dL (0.2-1.3) 03/12/18 13:19 AST 36 U/L (17-59) 03/12/18 13:19 ALT 35 U/L (21-72) 03/12/18 13:19 Alkaline Phosphatase 126 U/L (38-126) D 03/12/18 13:19 Total Protein 9.3 g/dL (6.3-8.3) H 03/12/18 13:19 Albumin 4.7 g/dL (3.5-5.0) 03/12/18 13:19 Globulin 4.5 gm/dL (2.2-3.9) H 03/12/18 13:19 Albumin/Globulin Ratio 1.0 (1.0-2.1) 03/12/18 13:19 Amylase 100 U/L (30-110) 03/14/18 07:49 Lipase 182 U/L (23-300) 03/14/18 07:49 Venous Blood Potassium 5.0 mmol/L (3.6-5.2) 03/12/18 15:28 Urine Color Straw (YELLOW) 03/12/18 15:01 Urine Clarity Clear (Clear) 03/12/18 15:01 Urine pH 6.0 (5.0-8.0) 03/12/18 15:01 Ur Specific [place] 1.010 (1.003-1.030) 03/12/18 15:01 Urine Protein Negative mg/dL (NEGATIVE) 03/12/18 15:01 Urine Glucose (UA) Normal mg/dL (Normal) 03/12/18 15:01 Urine Ketones Negative mg/dL (NEGATIVE) 03/12/18 15:01 Urine Blood Trace (NEGATIVE) 03/12/18 15:01 Urine Nitrate Negative (NEGATIVE) 03/12/18 15:01 Urine Bilirubin Negative (NEGATIVE) 03/12/18 15:01 Urine Urobilinogen Normal mg/dL (0.2-1.0) 03/12/18 15:01 Ur Leukocyte Esterase Neg [place]kha/uL (Negative) 03/12/18 15:01 Urine WBC (Auto) < 1 /hpf (0-5) 03/12/18 15:01 Urine RBC (Auto) 1 /hpf (0-3) 03/12/18 15:01 Discharge Plan - Discharge Medications Prescriptions: Famotidine/Ca Carb/Mag Hydrox [Pepcid Complete Tablet Chew] 1 each PO BID #30 tab.chew - Follow Up Plan Condition: STABLE Disposition: HOME/ ROUTINE Instructions: Pancreatitis (DC) Referrals: Hermes Faith MD [Staff Provider] -
--- NOTE | 2018-03-15 02:47 | PN ---
Copied To: Hermes Faith MD Attending MD: Hermes Faith MD DATE: 03/14/2018 SUBJECTIVE: The patient is feeling weak. He is feeling better. He denies any abdominal pain, nausea, or vomiting. He has been on clear liquid diet, and now we ordered solid diet. PHYSICAL EXAMINATION: VITAL SIGNS: BP 125/77, pulse 56, respiratory rate 20, temperature 98.1. LUNGS: Clear. CARDIOVASCULAR SYSTEM: S1, S2 are regular. ABDOMEN: Soft. ASSESSMENT: 1. Pancreatitis, resolved. 2. Dehydration, resolved. PLAN: Discharge the patient. Hermes Faith MD
--- NOTE | 2018-03-15 19:30 | CON ---
Copied To: Harjinder Seo MD Attending MD: Harjinder Seo MD This is from Dr. Harjinder Seo to Dr. Hermes Faith. I was called for GI consultation by the admitting medical team. The patient is seen and fully examined for the GI consultation on 03/12/2018. The entire chart is reviewed including but not limited to most recent lab and radiology study results, current and the previous medication list, current and the previous medical events, allergy to medication list as well as all the available current and the previous medical records. Case discussed at length with the staff. HISTORY OF PRESENT ILLNESS: This is a 52-year-old male who was admitted to the hospital through the emergency room with a complaint of severe abdominal pain, both excessive alcohol intake with recurrent episodes of nausea and vomiting with postprandial abdominal distention. No reported chest pain, palpitation, chills or fever, or significant shortness of breath. PAST MEDICAL HISTORY: Including mainly: 1. Excessive alcohol intake. 2. Peptic ulcer disease. 3. Recurrent acute pancreatitis on top of chronic pancreatitis secondary to alcoholism. FAMILY HISTORY: Unknown. CURRENT MEDICATIONS: Post admission medication list reviewed. ALLERGIES TO MEDICATIONS: UNCLEAR. SOCIAL HISTORY: Positive for alcohol intake and substance abuse, but denied recent history of cigarette smoking. LABORATORY DATA: After being admitted to the hospital, patient was found to have leukocytosis of 14.4. Blood glucose level 121 and CO2 content of 17, indicative of metabolic acidosis. Chest x-ray showed no acute disease. PHYSICAL EXAMINATION: GENERAL: A 52-year-old male, awake, alert. VITAL SIGNS: Afebrile with pulse of 74, respiratory rate 18-20, and blood pressure of 152/90. HEENT: Showed dry oral mucous membrane. Slightly icteric sclerae bilaterally. LYMPH NODES: No lymphadenitis or lymphadenopathy. LUNGS: Few scattered crepitation. Decreased air entry at bases. HEART: Positive S1 and S2. ABDOMEN: Soft with mild generalized tenderness with mild distention. Bowel sounds are hypoactive. No mass or organomegaly. No rebound tenderness or guarding. RECTAL: The patient refused. EXTREMITIES: Without significant clubbing, cyanosis, or edema, but the patient still has mild bilateral hand tremor. NEUROLOGIC: No new reported other significant deficits, sensory or motor. IMPRESSION: 1. Alcoholism. 2. Recurrent acute pancreatitis on top of chronic pancreatitis, most likely secondary to alcoholism. 3. Re-exacerbation of peptic ulcer disease. 4. Rule out gastric versus duodenal ulcer. 5. Known history of substance abuse. 6. Early stage of delirium tremens. SUGGESTIONS: 1. Agree with your plan. 2. Ativan IV. 3. Repeat serum lipase and amylase level. 4. Sectional abdominal and pelvic CAT scan. 5. Guaiac all the stools daily x3. 6. H2 blockers IV. 7. Flagyl IV. 8. Keep the patient n.p.o. until serum lipase and amylase level is within normal limit. 9. Further recommendation to follow and the patient will need rehydration. Thank you for letting me participate in your patient's case management. Harjinder Seo MD
== END 2018-03-14 15:55 | disposition home or self-care (01) | DRG 204 ==
LOC: C.ER 12:31 → C.9E 15:15 → C.3T 15:58
PROVIDERS: ADMIT Internal Medicine; ATTEND Internal Medicine
DX: K85.90 Acute pancreatitis without necrosis or infection, unspecified (principal); E87.2 Acidosis; E86.0 Dehydration; K86.1 Other chronic pancreatitis; Z87.891 Personal history of nicotine dependence; F10.20 Alcohol dependence, uncomplicated

== ENCOUNTER 2018-05-23 17:37 | Inpatient (IN) | payer MEDICAID, OTHER ==
[2018-05-23] MEDS ORDERED: Sodium Chloride 0.9% 1,000 ML IV ONE (18:27)
[2018-05-23 18:41] LABS: BASO # 0.1 K/uL (0.0-0.2); BASO % 0.6 % (0.0-2.0); EOS # 0.1 K/uL (0.0-0.7); EOS % 0.4 % (0.0-4.0); HEMOGLOBIN 15.5 g/dL (12.0-18.0); LYMPH # 1.2 K/uL (1.0-4.3); LYMPH % 7.1 % (20.0-40.0); MEAN CELL VOLUME 87.5 fL (80.0-94.0); MEAN CORPUSCULAR HEMOGLOBIN 30.8 pg (27.0-31.0); MEAN CORPUSCULAR HGB CONC 35.1 g/dL (33.0-37.0); MEAN PLATELET VOLUME 7.3 fL (7.2-11.7); MONO # 0.5 K/uL (0.0-0.8); NEUT # 15.4 K/uL (1.8-7.0); NEUT % 88.9 % (50.0-75.0); PLATELET COUNT 301 K/uL (130-400); RBC 5.04 Mil/uL (4.40-5.90); RED CELL DISTRIBUTION WIDTH 13.4 % (11.5-14.5); WHITE BLOOD COUNT 17.3 K/uL (4.8-10.8)
[2018-05-23] MEDS ORDERED: Sodium Chloride 0.9% 1,000 ML ONE (18:43)
--- NOTE | 2018-05-23 18:49 | C.PDOC ---
History Of Present Illness 52 year old male, whose past medical history includes pancreatitis and alcohol abuse, presents to the ED for evaluation of "pancreas pain." Patient denies fever, chills, nausea, vomiting, or any other complaints at this time. Time Seen by Provider: 05/23/18 18:23 Chief Complaint (Nursing): Abdominal Pain History Per: Patient History/Exam Limitations: no limitations Current Symptoms Are (Timing): Still Present Quality Of Discomfort: "Pain" Associated Symptoms: denies: Fever, Chills, Nausea, Vomiting Additional History Per: Patient Past Medical History Reviewed: Historical Data, Nursing Documentation, Vital Signs Vital Signs: Last Vital Signs Temp 98 F 05/23/18 17:53 Pulse 57 L 05/23/18 17:53 Resp 21 05/23/18 17:53 BP 179/125 H 05/23/18 17:53 Pulse Ox 99 05/23/18 17:53 - Medical History PMH: Pancreatitis Denies: Chronic Kidney Disease Surgical History: No Surg Hx Family History: States: Unknown Family Hx - Social History Hx Tobacco Use: No Hx Alcohol Use: Yes (2yrs ago) Hx Substance Use: No - Immunization History Hx Tetanus Toxoid Vaccination: No Hx Influenza Vaccination: No Hx Pneumococcal Vaccination: No Review Of Systems Constitutional: Negative for: Fever, Chills Gastrointestinal: Positive for: Other ("pancreas pain"). Negative for: Nausea, Vomiting Physical Exam - Physical Exam Appears: Non-toxic, No Acute Distress Skin: Normal Color, Warm, Dry Head: Atraumatic, Normacephalic Eye(s): bilateral: Normal Inspection Oral Mucosa: Moist Neck: Supple Chest: Symmetrical, No Deformity, No Tenderness Cardiovascular: Rhythm Regular, No Murmur Respiratory: Normal Breath Sounds, No Rales, No Rhonchi, No Wheezing Gastrointestinal/Abdominal: Soft, Tenderness (epigastric ), No Guarding, No Rebound Extremity: Normal ROM, Capillary Refill (less than 2 seconds ) Neurological/Psych: Oriented x3, Normal Speech, Normal Cognition ED Course And Treatment - Laboratory Results Result Diagrams: 05/23/18 18:00 05/23/18 18:00 O2 Sat by Pulse Oximetry: 99 (on RA) Pulse Ox Interpretation: Normal Medical Decision Making Medical Decision Making: ro pancreatitis Progress: Bloodwork, urinalysis, CXR ordered and reviewed. Toradol IVP, Zofran IVP and IV Fluids given. labs show elevated lipase. ivf initiated.accpeted by dr faith for admission. abd soft no rebound no guarding. needs ivf. defer furhte rimaging to inpt. Disposition - Disposition Disposition: HOSPITALIZED Disposition Time: 19:46 Condition: STABLE Forms: [facility] (Guatemalan) - Clinical Impression Clinical Impression: Pancreatitis - Scribe Statement The provider has reviewed the documentation as recorded by the Scribe (Arminda Anderson) Provider Attestation: All medical record entries made by the Scribe were at my direction and personally dictated by me. I have reviewed the chart and agree that the record accurately reflects my personal performance of the history, physical exam, medical decision making, and the department course for this patient. I have also personally directed, reviewed, and agree with the discharge instructions and dis position. Decision To Admit - Pt Status Changed To: Hospital Disposition Of: Inpatient - Admit Certification Admit to Inpatient:: After my assessment, the patient will require hospita lization for at least two midnights. This is because of the severity of symptoms shown, intensity of services needed, and/or the medical risk in this patient being treated as an outpatient. - InPatient: Physician Admission Certification:: pancreatitis - . Bed Request Type: Regular Admitting Physician: Hermes Faith Patient Diagnosis: Pancreatitis
[2018-05-23 18:55] LABS: BLOOD UREA NITROGEN 12 mg/dL (9-20); CALCIUM 8.4 mg/dl (8.6-10.4); GFR NON-AFRICAN AMERICAN > 60; LIPASE 1994 U/L (23-300)
[2018-05-23 18:58] LABS: ALBUMIN 4.4 g/dL (3.5-5.0); ALT/SGPT 15 U/L (21-72); AST/SGOT 33 U/L (17-59); PROTHROMBIN TIME 11.4 SECONDS (9.7-12.2)
[2018-05-23 19:06] LABS: BANDS 1 % (0-2); EOSINOPHIL 1 % (0-4); LYMPHOCYTE 9 % (20-40); MONOCYTE 3 % (0-10); NEUTROPHIL 86 % (50-75); PLATELET ESTIMATE NORMAL (NORMAL); TOTAL CELLS COUNTED 100
[2018-05-23 22:07] LABS: SQUAMOUS EPITHIAL < 1 /hpf (0-5); URINE BILIRUBIN NEGATIVE (NEGATIVE); URINE BLOOD NEGATIVE (NEGATIVE); URINE CLARITY Clear (Clear); URINE COLOR Yellow (YELLOW); URINE GLUCOSE (UA) NORMAL (Normal); URINE LEUKOCYTE ESTERASE NEG Leu/uL (Negative); URINE PROTEIN 2+ mg/dL (NEGATIVE)
[2018-05-24] MEDS: Dextrose 5%/0.45% NS 1,000 ML IV SCH ×2 (02:00→21:36)
[2018-05-24 07:24] LABS: ALB/GLOB RATIO 1.2 (1.0-2.1); ALT/SGPT 19 U/L (21-72); AMYLASE 164 U/L (30-110); AST/SGOT 17 U/L (17-59); BLOOD UREA NITROGEN 12 mg/dL (9-20); CALCIUM 8.2 mg/dl (8.6-10.4); GFR NON-AFRICAN AMERICAN > 60; LIPASE 581 U/L (23-300)
[2018-05-24 07:26] LABS: HEMOGLOBIN 14.5 g/dL (12.0-18.0); MEAN CELL VOLUME 87.8 fL (80.0-94.0); MEAN CORPUSCULAR HGB CONC 35.3 g/dL (33.0-37.0); RBC 4.68 Mil/uL (4.40-5.90); RED CELL DISTRIBUTION WIDTH 13.6 % (11.5-14.5)
--- NOTE | 2018-05-24 09:17 | RAD ---
Date of service: 05/23/2018 HISTORY: abd pain COMPARISON: 03/12/2018 FINDINGS: LUNGS: No active pulmonary disease. PLEURA: No significant pleural effusion identified, no pneumothorax apparent. CARDIOVASCULAR: No aortic atherosclerotic calcification present. Normal cardiac size. No pulmonary vascular congestion. OSSEOUS STRUCTURES: No significant abnormalities. VISUALIZED UPPER ABDOMEN: Normal. OTHER FINDINGS: None. IMPRESSION: No active disease.
[2018-05-24] MEDS: Enoxaparin 40 mg Syringe SC SCH (09:59)
[2018-05-24 12:31] LABS: BARBITURATES, UR NEGATIVE (NEGATIVE); BENZODIAZEPINES, UR NEGATIVE (NEGATIVE); PHENCYCLIDINE, UR NEGATIVE (NEGATIVE)
[2018-05-24 13:58] LABS: OPIATES, UR POSITIVE (NEGATIVE)
[2018-05-24 16:28] VITALS: RESP 20
[2018-05-24] MEDS: Potassium Chloride 20 mEq ER Tab PO SCH (17:34)
--- NOTE | 2018-05-25 06:25 | CP.PCM.HP ---
Past Patient History - Infectious Disease Hx of Infectious Diseases: None - Past Medical History & Family History Past Medical History?: Yes - Past Social History Smoking Status: Light Smoker < 10 Cigarettes Daily - CARDIAC Hx Cardiac Disorders: No - PULMONARY Hx Respiratory Disorders: No - NEUROLOGICAL Hx Neurological Disorder: No - HEENT Hx HEENT Problems: No - RENAL Hx Chronic Kidney Disease: No - ENDOCRINE/METABOLIC Hx Endocrine Disorders: No - HEMATOLOGICAL/ONCOLOGICAL Hx Blood Disorders: No - INTEGUMENTARY Hx Dermatological Problems: No - MUSCULOSKELETAL/RHEUMATOLOGICAL Hx Falls: No - GASTROINTESTINAL Hx Pancreatitis: Yes - GENITOURINARY/GYNECOLOGICAL Hx Genitourinary Disorders: No - PSYCHIATRIC Hx Substance Use: Yes - SURGICAL HISTORY Hx Surgeries: No Other/Comment: Hernia repair 5 yrs old - ANESTHESIA Hx Anesthesia: Yes Hx Anesthesia Reactions: No (not sure) Meds Allergies/Adverse Reactions: Allergies Allergy/AdvReac Type Severity Reaction Status Date / Time No Known Allergies Allergy Verified 05/23/18 17:52 Results - Vital Signs Recent Vital Signs: Last Vital Signs Temp 97.9 F 05/24/18 23:50 Pulse 61 05/24/18 23:50 Resp 20 05/24/18 23:50 BP 150/94 H 05/24/18 23:50 Pulse Ox 97 05/24/18 23:50 - Labs Result Diagrams: 05/24/18 06:50 05/24/18 06:50 Labs: Laboratory Results - last 24 hr 05/24/18 05/24/18 05/24/18 06:50 06:50 11:43 WBC 13.0 H RBC 4.68 Hgb 14.5 Hct 41.0 MCV 87.8 MCH 31.0 MCHC 35.3 RDW 13.6 Plt Count 279 MPV 8.0 Sodium 137 Potassium 3.5 L Chloride 107 Carbon Dioxide 20 L Anion Gap 14 BUN 12 Creatinine 0.9 Est GFR ( Amer) > 60 Est GFR (Non-Af Amer) > 60 Random Glucose 109 Calcium 8.2 L Magnesium 1.9 Total Bilirubin 1.2 AST 17 D ALT 19 L D Alkaline Phosphatase 107 Total Protein 7.3 Albumin 4.0 Globulin 3.3 Albumin/Globulin Ratio 1.2 Amylase 164 H D Lipase 581 H Urine Opiates Screen Positive H Urine Methadone Screen Negative Ur Barbiturates Screen Negative Ur Phencyclidine Scrn Negative Ur Amphetamines Screen Negative U Benzodiazepines Scrn Negative U Oth Cocaine Metabols Negative U Cannabinoids Screen Positive H
[2018-05-25] MEDS: Dextrose 5%/0.45% NS 1,000 ML IV SCH ×2 (07:25→17:58)
[2018-05-25] MEDS: Enoxaparin 40 mg Syringe SC SCH (09:57)
[2018-05-25] MEDS: Potassium Chloride 20 mEq ER Tab PO SCH ×2 (09:57→15:06)
[2018-05-25 14:07] LABS: BASO % 0.4 % (0.0-2.0); EOS # 0.4 K/uL (0.0-0.7); EOS % 5.5 % (0.0-4.0); LYMPH # 1.7 K/uL (1.0-4.3); LYMPH % 23.9 % (20.0-40.0); MEAN CELL VOLUME 87.2 fL (80.0-94.0); MEAN CORPUSCULAR HEMOGLOBIN 30.9 pg (27.0-31.0); MEAN CORPUSCULAR HGB CONC 35.4 g/dL (33.0-37.0); MEAN PLATELET VOLUME 7.7 fL (7.2-11.7); MONO # 0.5 K/uL (0.0-0.8); MONO % 6.5 % (0.0-10.0); NEUT # 4.5 K/uL (1.8-7.0); NEUT % 63.7 % (50.0-75.0); NRBC % 0.1 % (0.0-2.0); RBC 4.86 Mil/uL (4.40-5.90); RED CELL DISTRIBUTION WIDTH 13.1 % (11.5-14.5)
[2018-05-25 14:20] LABS: ALB/GLOB RATIO 1.2 (1.0-2.1); ALBUMIN 4.5 g/dL (3.5-5.0); ALT/SGPT 21 U/L (21-72); AST/SGOT 21 U/L (17-59); BLOOD UREA NITROGEN 8 mg/dL (9-20); CALCIUM 9.1 mg/dl (8.6-10.4); GFR NON-AFRICAN AMERICAN > 60; LIPASE 162 U/L (23-300)
[2018-05-25 15:43] LABS: AMYLASE 79 U/L (30-110)
--- NOTE | 2018-05-25 15:58 | PN ---
DATE: 05/25/2018 LOCATION: 551, Bed B. SUBJECTIVE: This is a 52-year-old male, seen initially for GI consultation on 05/24/2018, reexamined again today without significant clinical changes or reported active bleeding. The entire chart is reviewed including but not limited to the most recent lab and radiology study results, current and the previous medication list, current and the previous medical events. The patient denied any significant abdominal pain and the latest blood workup showed leukocytosis of 13 with amylase 164 and lipase 581. Today's lab is still pending so far. PHYSICAL EXAMINATION: GENERAL: A 52-year-old male, awake, alert, oriented, still n.p.o. VITAL SIGNS: Afebrile with pulse of 66, respiratory rate 20 to 22, and blood pressure of 136/82. HEENT: Showed dry oral mucous membrane. Nonicteric sclerae. LUNGS: Few scattered crepitation. Decreased air entry at bases. HEART: Positive S1 and S2. ABDOMEN: Soft with mild generalized tenderness. No mass or organomegaly. No rebound tenderness or guarding. EXTREMITIES: Without significant clubbing, cyanosis or edema. IMPRESSION: 1. Acute pancreatitis. 2. Re-exacerbation of peptic ulcer disease. 3. Known history of alcoholism. SUGGESTIONS: 1. Continue current management. 2. Repeat serum lipase and amylase level. 3. Restart clear liquid diet. 4. Psychiatry evaluation. Harjinder Seo MD
--- NOTE | 2018-05-25 16:46 | HP ---
CHIEF COMPLAINT: Abdominal pain. HISTORY OF PRESENT ILLNESS: This is a 52-year-old white male with history of alcoholism. He has prior history of pancreatitis. He has been drinking and he came in because of abdominal pain, which was acute onset just started two days ago while he has been drinking on and off. Pain is acute, sharp, and intense radiating to the back, associated with nausea and vomiting, not associated with any diarrhea. The patient denies any history of right upper quadrant pain. The patient denies any history of dysuria, frequency, hematuria, or pyuria. He denies any sneezing, itchy eyes, or itchy nose. He denies any cough, sore throat, or runny nose. He denies any history of cholesterol problems. He denies any fever, chills, or rigors. He denies any polyuria, polydipsia, or polyphagia. He denies any hematuria or pyuria. He denies any history of trauma, falls, or loss of consciousness. PAST MEDICAL HISTORY: Pancreatitis. SOCIAL HISTORY: smokes. He drinks. FAMILY HISTORY: Noncontributory. CURRENT MEDICATIONS: The patient is on Pepcid and multivitamin at home. PHYSICAL EXAMINATION: GENERAL: A middle-aged male, in moderate distress. VITAL SIGNS: Blood pressure is 163/93, pulse 58, respiratory rate 18, and temperature 98.4. LUNGS: Clear. SKIN: No rashes. No bruises. HEENT: Atraumatic and normocephalic. Negative pallor. Negative jaundice. Extraocular movements are intact. NECK: Supple. No JVD. CHEST WALL: Bilateral symmetrical expansion. LUNGS: Bilaterally clear. No rales. No rhonchi. CARDIOVASCULAR SYSTEM: S1 and S2 regular. ABDOMEN: Soft. Epigastric tenderness. Bowel sounds are present. No guarding. No rebound. No rigidity. RECTAL: No masses. EXTREMITIES: No clubbing, cyanosis, or edema. CENTRAL NERVOUS SYSTEM: Awake, alert, and oriented x3. Cranial nerves II through XII are normal. Power 5/5 x4. ASSESSMENT: 1. Active pancreatitis. 2. Polysubstance abuse with urine drug screen positive for opioids and cannabinoids. 3. Alcoholism. 4. Hypertension. PLAN: Continue n.p.o., IV fluids, start diet once the patient's pain is subsided. Hermes Faith MD
--- NOTE | 2018-05-25 21:18 | CP.PCM.PN ---
Subjective - Subjective Subjective: dictated Objective - Vital Signs/Intake and Output Vital Signs (last 24 hours): Temp Pulse Resp BP Pulse Ox 98.4 F 71 20 144/98 H 95 05/25/18 16:05 05/25/18 16:05 05/25/18 16:05 05/25/18 16:05 05/25/18 16:05 - Medications Medications: Current Medications Enoxaparin Sodium (Lovenox) 40 mg SC DAILY [facility] Last Admin: 05/25/18 09:57 Dose: Not Given Dextrose/Sodium Chloride (Dextrose 5%/0.45% Ns 1000 Ml) 1,000 mls @ 100 mls/hr IV .Q10H [facility] Last Admin: 05/25/18 17:58 Dose: 100 mls/hr Morphine Sulfate (Morphine) 2 mg IVP Q4 PRN PRN Reason: Pain, moderate (4-7) Last Admin: 05/24/18 02:01 Dose: 2 mg Ondansetron HCl (Zofran Inj) 4 mg IVP DAILY@ONCE PRN PRN Reason: Nausea/Vomiting Last Admin: 05/24/18 17:34 Dose: 4 mg Pantoprazole Sodium (Protonix Inj) 40 mg IVP DAILY [facility] Last Admin: 05/25/18 09:56 Dose: 40 mg Pneumococcal Polyvalent Vaccine (Pneumovax 23 Vaccine) 0.5 ml IM .ONCE ONE Stop: 05/26/18 10:01 Potassium Chloride (K-Dur 20 Meq Er Tab) 20 meq PO DAILY [facility] Last Admin: 05/25/18 15:06 Dose: 20 meq - Labs Labs: 05/25/18 13:57 05/25/18 13:57 PT 11.4 SECONDS (9.7-12.2) 05/23/18 18:00 INR 1.0 05/23/18 18:00 APTT 34 SECONDS (21-34) 05/23/18 18:00
--- NOTE | 2018-05-26 02:10 | PN ---
DATE: 05/25/2018 SUBJECTIVE: Dom Daniel is tolerating diet. He is afebrile. He denies any alcohol use; however, he admits cannabis. No fever. No chills. PHYSICAL EXAMINATION: VITAL SIGNS: Blood pressure 140/98, pulse 71, respiratory rate 20, temperature 98.4. LUNGS: Clear. CARDIOVASCULAR SYSTEM: S1 and S2, regular. ABDOMEN: Soft. ASSESSMENT: 1. Pancreatitis. 2. Dehydration. PLAN: Continue current medications. Monitor the patient. Hermes Faith MD
[2018-05-26] MEDS: Dextrose 5%/0.45% NS 1,000 ML IV SCH (03:30)
[2018-05-26 06:19] LABS: BASO % 0.5 % (0.0-2.0); EOS # 0.6 K/uL (0.0-0.7); EOS % 7.2 % (0.0-4.0); HEMOGLOBIN 14.7 g/dL (12.0-18.0); LYMPH # 2.4 K/uL (1.0-4.3); LYMPH % 28.7 % (20.0-40.0); MEAN CELL VOLUME 86.5 fL (80.0-94.0); MEAN CORPUSCULAR HEMOGLOBIN 30.7 pg (27.0-31.0); MEAN CORPUSCULAR HGB CONC 35.5 g/dL (33.0-37.0); MEAN PLATELET VOLUME 7.4 fL (7.2-11.7); MONO # 0.8 K/uL (0.0-0.8); MONO % 8.9 % (0.0-10.0); NEUT # 4.7 K/uL (1.8-7.0); NEUT % 54.7 % (50.0-75.0); NRBC % 0.2 % (0.0-2.0); RBC 4.78 Mil/uL (4.40-5.90); RED CELL DISTRIBUTION WIDTH 13.2 % (11.5-14.5); WHITE BLOOD COUNT 8.5 K/uL (4.8-10.8)
[2018-05-26 06:34] LABS: ALB/GLOB RATIO 1.2 (1.0-2.1); ALBUMIN 4.3 g/dL (3.5-5.0); ALT/SGPT 36 U/L (21-72); AST/SGOT 36 U/L (17-59); BLOOD UREA NITROGEN 8 mg/dL (9-20); CALCIUM 9.1 mg/dl (8.6-10.4); GFR NON-AFRICAN AMERICAN > 60; LIPASE 124 U/L (23-300)
[2018-05-26 08:01] VITALS: BP 115/76; PULSE 71; TEMP 97.9; O2SAT 95
[2018-05-26] MEDS: Potassium Chloride 20 mEq ER Tab PO SCH (09:54)
[2018-05-26] MEDS: Enoxaparin 40 mg Syringe SC SCH (09:55)
[2018-05-26] MEDS ORDERED: Pneumococcal 23-Valent Vaccine IM ONE (10:00)
[2018-05-26] MEDS ORDERED: Potassium Chloride 20 mEq ER Tab PO ONE (11:00)
--- NOTE | 2018-05-26 12:34 | CP.PCM.PN ---
Subjective - Date & Time of Evaluation Date of Evaluation: 05/26/18 Time of Evaluation: 12:33 - Subjective Subjective: PATIENT SEEN AND EXAMINED AT THE BEDSIDE Objective - Vital Signs/Intake and Output Vital Signs (last 24 hours): Temp Pulse Resp BP Pulse Ox 97.9 F 71 20 115/76 95 05/26/18 07:20 05/26/18 07:20 05/26/18 07:20 05/26/18 07:20 05/26/18 07:20 Intake and Output: 05/26/18 05/26/18 06:59 18:59 Intake Total 800 Output Total 400 Balance 400 - Medications Medications: Current Medications Enoxaparin Sodium (Lovenox) 40 mg SC DAILY [facility] Last Admin: 05/26/18 09:55 Dose: Not Given Dextrose/Sodium Chloride (Dextrose 5%/0.45% Ns 1000 Ml) 1,000 mls @ 100 mls/hr IV .Q10H [facility] Last Admin: 05/26/18 03:30 Dose: Not Given Morphine Sulfate (Morphine) 2 mg IVP Q4 PRN PRN Reason: Pain, moderate (4-7) Last Admin: 05/24/18 02:01 Dose: 2 mg Ondansetron HCl (Zofran Inj) 4 mg IVP DAILY@ONCE PRN PRN Reason: Nausea/Vomiting Last Admin: 05/24/18 17:34 Dose: 4 mg Pantoprazole Sodium (Protonix Inj) 40 mg IVP DAILY [facility] Last Admin: 05/25/18 09:56 Dose: 40 mg Potassium Chloride (K-Dur 20 Meq Er Tab) 20 meq PO DAILY [facility] Last Admin: 05/26/18 09:54 Dose: 20 meq - Labs Labs: 05/26/18 06:07 05/26/18 06:07 PT 11.4 SECONDS (9.7-12.2) 05/23/18 18:00 INR 1.0 05/23/18 18:00 APTT 34 SECONDS (21-34) 05/23/18 18:00 Assessment and Plan - Assessment and Plan (Free Text) Assessment: FOLLOW UP WITH DR CANDELARIO IN HIS OFFICE ----CALL FOR APPOINTMENT CONTINUE HOME MEDICATION ACTIVITY TOLERATED CALL DR CANDELARIO OR GO TO THE EMERGENCY ROOM IF SYMPTOM RETURN OR WORSENING
--- NOTE | 2018-05-26 13:25 | PN ---
DATE: 05/26/2018 LOCATION: 551, bed B. SUBJECTIVE: This is a 52-year-old male seen and examined in rounds with intermittent period of abdominal pain and discomfort without any reported active GI bleeding, chest pain or palpitation. The patient had slight bilateral upper extremities tremors. No chills or fever reported. The entire chart is reviewed including but not limited to the most recent lab and radiology study results, current and the previous medication list, current and the previous medical events, and today's lab results showed potassium of 3.5, BUN 8 with normal creatinine, total bilirubin 1.6 with normal lipase level. The patient tolerated oral intake of liquid. PHYSICAL EXAMINATION: GENERAL: A 52-year-old male. VITAL SIGNS: Afebrile, awake, alert with pulse of 74, respiratory rate 20 to 22, blood pressure 120/74. HEENT: Showed pale, dry oral mucous membrane. Bilateral icteric sclerae mildly. HEART: Positive S1 and S2. ABDOMEN: Soft. Bowel sounds are present. No mass or organomegaly. No rebound tenderness or guarding. EXTREMITIES: Without significant clubbing, cyanosis or edema, but bilateral both hands fine occasional tremors. NEUROLOGICAL: No reported new neurological deficits, sensory or motor. IMPRESSION: 1. Alcoholism. 2. Alcohol-induced acute pancreatitis. 3. Mild jaundice secondary to above. 4. Re-exacerbation of peptic ulcer disease. SUGGESTIONS: 1. Continue current management. 2. Advance diet as tolerated. 3. Further recommendation to follow and the patient may discharge home after abdominal ultrasound to be performed. Harjinder Seo MD
--- NOTE | 2018-05-27 03:51 | DS ---
DISCHARGE DIAGNOSES: 1. Acute pancreatitis. 2. Polysubstance abuse. HISTORY OF PRESENT ILLNESS: This is a 52-year-old male with history of prior pancreatitis, came in with recurrent abdominal pain, nausea, vomiting. The pain is intense. He was found to have acute pancreatitis. The patient was treated conservatively with IV fluids p.o., GI eval and monitor. His amylase and lipase went down. He tolerated p.o. diet and he was discharged with an absolute abstain from drugs. The patient agreed. The patient is afebrile. LABORATORY DATA: WBC 8.5, hemoglobin 14.7, hematocrit 41.4, platelets 284 . Sodium 138, potassium 3.5, chloride 100, bicarb 22, BUN 8, creatinine 1.1. CONDITION UPON DISCHARGE: Stable. eHrmes Faith MD
--- NOTE | 2018-05-28 19:28 | CP.PCM.DIS ---
Provider - Provider Date of Admission: 05/23/18 19:24 Attending physician: Hermes Faith MD Hospital Course - Lab Results Lab Results: Most Recent Lab Values WBC 8.5 K/uL (4.8-10.8) 05/26/18 06:07 RBC 4.78 Mil/uL (4.40-5.90) 05/26/18 06:07 Hgb 14.7 g/dL (12.0-18.0) 05/26/18 06:07 Hct 41.4 % (35.0-51.0) 05/26/18 06:07 MCV 86.5 fL (80.0-94.0) 05/26/18 06:07 MCH 30.7 pg (27.0-31.0) 05/26/18 06:07 MCHC 35.5 g/dL (33.0-37.0) 05/26/18 06:07 RDW 13.2 % (11.5-14.5) 05/26/18 06:07 Plt Count 283 K/uL (130-400) 05/26/18 06:07 MPV 7.4 fL (7.2-11.7) 05/26/18 06:07 Neut % (Auto) 54.7 % (50.0-75.0) 05/26/18 06:07 Lymph % (Auto) 28.7 % (20.0-40.0) 05/26/18 06:07 [place] % (Auto) 8.9 % (0.0-10.0) 05/26/18 06:07 Eos % (Auto) 7.2 % (0.0-4.0) H 05/26/18 06:07 Baso % (Auto) 0.5 % (0.0-2.0) 05/26/18 06:07 Neut # (Auto) 4.7 K/uL (1.8-7.0) 05/26/18 06:07 Lymph # (Auto) 2.4 K/uL (1.0-4.3) 05/26/18 06:07 [place] # (Auto) 0.8 K/uL (0.0-0.8) 05/26/18 06:07 Eos # (Auto) 0.6 K/uL (0.0-0.7) 05/26/18 06:07 Baso # (Auto) 0.0 K/uL (0.0-0.2) 05/26/18 06:07 Neutrophils % (Manual) 86 % (50-75) H 05/23/18 18:00 Band Neutrophils % 1 % (0-2) 05/23/18 18:00 Lymphocytes % (Manual) 9 % (20-40) L 05/23/18 18:00 Monocytes % (Manual) 3 % (0-10) 05/23/18 18:00 Eosinophils % (Manual) 1 % (0-4) 05/23/18 18:00 Platelet Estimate Normal (NORMAL) 05/23/18 18:00 RBC Morphology Normal 05/23/18 18:00 PT 11.4 SECONDS (9.7-12.2) 05/23/18 18:00 INR 1.0 05/23/18 18:00 APTT 34 SECONDS (21-34) 05/23/18 18:00 Sodium 138 mmol/L (132-148) 05/26/18 06:07 Potassium 3.5 mmol/L (3.6-5.2) L 05/26/18 06:07 Chloride 108 mmol/L (98-107) H 05/26/18 06:07 Carbon Dioxide 22 mmol/L (22-30) 05/26/18 06:07 Anion Gap 12 (10-20) 05/26/18 06:07 BUN 8 mg/dL (9-20) L 05/26/18 06:07 Creatinine 1.1 mg/dL (0.8-1.5) 05/26/18 06:07 Est GFR ( Amer) > 60 05/26/18 06:07 Est GFR (Non-Af Amer) > 60 05/26/18 06:07 Random Glucose 110 mg/dL (75-110) 05/26/18 06:07 Calcium 9.1 mg/dl (8.6-10.4) 05/26/18 06:07 Magnesium 1.9 mg/dL (1.6-2.3) 05/24/18 06:50 Total Bilirubin 1.6 mg/dL (0.2-1.3) H 05/26/18 06:07 AST 36 U/L (17-59) 05/26/18 06:07 ALT 36 U/L (21-72) 05/26/18 06:07 Alkaline Phosphatase 103 U/L (38-126) 05/26/18 06:07 Total Protein 7.9 g/dL (6.3-8.3) 05/26/18 06:07 Albumin 4.3 g/dL (3.5-5.0) 05/26/18 06:07 Globulin 3.6 gm/dL (2.2-3.9) 05/26/18 06:07 Albumin/Globulin Ratio 1.2 (1.0-2.1) 05/26/18 06:07 Amylase 79 U/L (30-110) 05/25/18 13:57 Lipase 124 U/L (23-300) 05/26/18 06:07 Urine Color Yellow (YELLOW) 05/23/18 21:57 Urine Clarity Clear (Clear) 05/23/18 21:57 Urine pH 7.0 (5.0-8.0) 05/23/18 21:57 Ur Specific [place] 1.023 (1.003-1.030) 05/23/18 21:57 Urine Protein 2+ mg/dL (NEGATIVE) H 05/23/18 21:57 Urine Glucose (UA) Normal mg/dL (Normal) 05/23/18 21:57 Urine Ketones Negative mg/dL (NEGATIVE) 05/23/18 21:57 Urine Blood Negative (NEGATIVE) 05/23/18 21:57 Urine Nitrate Negative (NEGATIVE) 05/23/18 21:57 Urine Bilirubin Negative (NEGATIVE) 05/23/18 21:57 Urine Urobilinogen 2.0 mg/dL (0.2-1.0) 05/23/18 21:57 Ur Leukocyte Esterase Neg [place]/uL (Negative) 05/23/18 21:57 Urine WBC (Auto) 1 /hpf (0-5) 05/23/18 21:57 Urine RBC (Auto) 4 /hpf (0-3) H 05/23/18 21:57 Ur Squamous Epith Cells < 1 /hpf (0-5) 05/23/18 21:57 Urine Opiates Screen Positive (NEGATIVE) H 05/24/18 11:43 Urine Methadone Screen Negative (NEGATIVE) 05/24/18 11:43 Ur Barbiturates Screen Negative (NEGATIVE) 11/06/18 11:43 Ur Phencyclidine Scrn Negative (NEGATIVE) 05/24/18 11:43 Ur Amphetamines Screen Negative (NEGATIVE) 05/24/18 11:43 U Benzodiazepines Scrn Negative (NEGATIVE) 05/24/18 11:43 U Oth Cocaine Metabols Negative (NEGATIVE) 05/24/18 11:43 U Cannabinoids Screen Positive (NEGATIVE) H 05/24/18 11:43 Discharge Plan - Follow Up Plan Condition: STABLE Disposition: HOME/ ROUTINE Instructions: Pancreatitis (DC) Additional Instructions: FOLLOW UP WITH DR FAITH IN HIS OFFICE ----CALL FOR APPOINTMENT CONTINUE HOME MEDICATION ACTIVITY TOLERATED CALL DR FAITH OR GO TO THE EMERGENCY ROOM IF SYMPTOM RETURN OR WORSENING Referrals: Harjinder Castellano [Staff Provider] - Hermes Faith MD [Staff Provider] -
--- NOTE | 2018-05-30 05:11 | CON ---
DATE: 05/24/[address] Seo to Dr. Hermes Faith. I was called for GI consultation by the admitting medical team. The patient is seen and fully examined on 05/24/[address] Faith. The entire chart is reviewed including but not limited to the most recent lab and radiology study results, current and the previous medication lists, current and the previous medical events, allergy to medication list as well as all the available current and the previous medical records. Case discussed with the staff at length. A short handwriting consultation sheet left in the chart at the time of my GI consultation on 05/24/2018. HISTORY OF PRESENT ILLNESS: This is a 52-year-old male who was admitted to the hospital with a main complaint of severe crampy midepigastric abdominal pain, radiated to the midabdominal line and right upper quadrant area with loss of appetite with nausea and dyspepsia, but no reported vomiting and no reported active bleeding. No reported active bleeding, chills or fever, or reported palpitations recently. PAST MEDICAL HISTORY: Includin. Alcoholism. 2. Recurrent acute pancreatitis on top of chronic pancreatitis. 3. Peptic ulcer disease. FAMILY HISTORY: Unknown. SOCIAL HISTORY: Positive for excessive alcohol intake. CURRENT MEDICATIONS: Medication lists are reviewed post-admission. ALLERGIES TO MEDICATIONS: UNCLEAR. After being admitted to the hospital, the patient was found to have leukocytosis of 17.3 with normal hemoglobin and hematocrit but CO2 content of 15 indicative of severe metabolic acidosis. Initial blood workup showed also elevated serum lipase and amylase level. PHYSICAL EXAMINATION: GENERAL: A 52-year-old male. VITAL SIGNS: Afebrile with pulse of 60, respiratory rate 18 to 20, blood pressure of 164/110. HEENT: Showed pale, dry oral mucous membrane. Nonicteric sclerae. LUNGS: Few scattered crepitation. Decreased air entry at bases. HEART: Positive S1 and S2. ABDOMEN: With generalized tenderness and slight distention. Bowel sounds are hypoactive. No mass or organomegaly. No rebound tenderness or guarding. RECTAL EXAMINATION: The patient refused. EXTREMITIES: Without significant clubbing, cyanosis, or edema. The patient had mild bilateral hand tremors. NEUROLOGIC: No reported new neurological deficits, sensory or motor. IMPRESSION: 1. Alcoholism. 2. Alcohol-induced acute pancreatitis on top of chronic pancreatitis. 3. Re-exacerbation of peptic ulcer disease. 4. Hypertension of unclear etiology. 5. Metabolic acidosis secondary to above. SUGGESTIONS: 1. Continue current management. 2. Keep n.p.o. until serum lipase and amylase levels are normal. 3. MRCP. 4. Rehydration. 5. Reglan IV. 6. Proton pump inhibitors IV. 7. Further recommendation to follow. 8. The patient may need psychiatric evaluation due to his alcoholic problems. Thank you for letting me to participate in your patient's case management. Further recommendation to follow. Harjinder Seo MD
== END 2018-05-26 13:39 | disposition home or self-care (01) | DRG 282 ==
LOC: C.ER 17:37 → C.9E 19:24 → C.5S 22:35
PROVIDERS: ADMIT Internal Medicine; ATTEND Internal Medicine
DX: K85.20 Alcohol induced acute pancreatitis without necrosis or infection (principal); E86.0 Dehydration; F11.10 Opioid abuse, uncomplicated; R17 Unspecified jaundice; K27.3 Acute peptic ulcer, site unspecified, without hemorrhage or perforation; I10 Essential (primary) hypertension; F17.210 Nicotine dependence, cigarettes, uncomplicated; F12.10 Cannabis abuse, uncomplicated; Y90.9 Presence of alcohol in blood, level not specified

== ENCOUNTER 2018-06-29 16:47 | Inpatient (IN) | payer MEDICAID ==
[2018-06-29 17:35] LABS: BASO # 0.1 K/uL (0.0-0.2); BASO % 0.6 % (0.0-2.0); EOS # 0.2 K/uL (0.0-0.7); EOS % 1.4 % (0.0-4.0); HEMOGLOBIN 15.9 g/dL (12.0-18.0); LYMPH # 1.4 K/uL (1.0-4.3); LYMPH % 9.3 % (20.0-40.0); MEAN CELL VOLUME 87.8 fL (80.0-94.0); MEAN CORPUSCULAR HEMOGLOBIN 31.4 pg (27.0-31.0); MEAN CORPUSCULAR HGB CONC 35.8 g/dL (33.0-37.0); MEAN PLATELET VOLUME 7.5 fL (7.2-11.7); MONO # 0.6 K/uL (0.0-0.8); MONO % 3.9 % (0.0-10.0); NEUT # 12.8 K/uL (1.8-7.0); NEUT % 84.8 % (50.0-75.0); PLATELET COUNT 352 K/uL (130-400); RBC 5.07 Mil/uL (4.40-5.90); RED CELL DISTRIBUTION WIDTH 13.1 % (11.5-14.5)
[2018-06-29 17:57] LABS: ALBUMIN 4.6 g/dL (3.5-5.0); BLOOD UREA NITROGEN 11 mg/dL (9-20); CALCIUM 9.2 mg/dl (8.6-10.4); GFR NON-AFRICAN AMERICAN > 60; LIPASE 562 U/L (23-300)
[2018-06-29 17:58] LABS: ALT/SGPT 31 U/L (21-72); AST/SGOT 29 U/L (17-59)
[2018-06-29 18:04] LABS: EOSINOPHIL 2 % (0-4); LYMPHOCYTE 7 % (20-40); MONOCYTE 2 % (0-10); NEUTROPHIL 89 % (50-75); PLATELET ESTIMATE NORMAL (NORMAL); TOTAL CELLS COUNTED 100
[2018-06-29] MEDS ORDERED: Sodium Chloride 0.9% 1,000 ML IV STA (18:17)
--- NOTE | 2018-06-29 18:27 | C.PDOC ---
History Of Present Illness 52 y/o M p/w abdominal pain x 1 day. Pain is epigastric, severe, boring in character, associated with nonbloody vomiting. States feels like previous pancreatitis. Patient denies fever, chills, diarrhea, dyspnea. Took no pain medication at home. Time Seen by Provider: 06/29/18 17:04 Chief Complaint (Nursing): Abdominal Pain Past Medical History Vital Signs: Last Vital Signs Temp 97.5 F L 06/29/18 16:48 Pulse 55 L 06/29/18 16:48 Resp 18 06/29/18 16:48 BP 177/104 H 06/29/18 16:48 Pulse Ox 99 06/29/18 16:48 - Medical History PMH: Pancreatitis Denies: Chronic Kidney Disease Family History: States: Unknown Family Hx - Social History Hx Tobacco Use: No Hx Alcohol Use: Yes Hx Substance Use: Yes - Immunization History Hx Tetanus Toxoid Vaccination: No Hx Influenza Vaccination: No Hx Pneumococcal Vaccination: No Review Of Systems Except As Marked, All Systems Reviewed And Found Negative. Constitutional: Negative for: Fever Cardiovascular: Negative for: Chest Pain Physical Exam - Physical Exam Additional Physical Exam Comments: Constitutional: In painful distress,writhing in pain Head: Normocephalic. Atraumatic. Eyes: PERRL. ENT: Moist mucous membranes. Neck: Supple. Cardiovascular: Regular rate. Radial pulse 2+ bilaterally. Chest: No tenderness. Respiratory: Clear to auscultation bilaterally. GI: Soft. Epigastric tenderness. Nondistended. Back: No CVA tenderness. Musculoskeletal: No tenderness or swelling of extremities. Skin: No rash. Neurologic: Alert, no focal deficit. ED Course And Treatment - Laboratory Results Result Diagrams: 06/29/18 17:30 06/29/18 17:30 O2 Sat by Pulse Oximetry: 99 Medical Decision Making Medical Decision Making: LDH and WBC elevated. Patient in 50s. Will admit for pancreatitis. Dr. Faith accepts for admission. Disposition - Disposition Disposition: HOSPITALIZED Disposition Time: 18:39 Condition: FAIR Forms: [employer] ([place]) - Clinical Impression Clinical Impression: Pancreatitis, acute, Leukocytosis
[2018-06-29] MEDS ORDERED: Sodium Chloride 0.9% 1,000 ML ONE (18:34)
[2018-06-29] MEDS: Dextrose 5%/0.45% NS 1,000 ML IV SCH (21:40)
[2018-06-29] MEDS ORDERED: Dextrose 5%/0.45% NS 1,000 ML IV ONE (21:41)
[2018-06-29 22:36] LABS: HDL CHOLESTEROL 32 mg/dL (30-70)
[2018-06-29 23:01] LABS: BARBITURATES, UR NEGATIVE (NEGATIVE); BENZODIAZEPINES, UR NEGATIVE (NEGATIVE); OPIATES, UR NEGATIVE (NEGATIVE); PHENCYCLIDINE, UR NEGATIVE (NEGATIVE)
[2018-06-29 23:20] LABS: LDL CHOLESTEROL < 30 mg/dL (0-129)
[2018-06-30 02:35] VITALS: RESP 20
[2018-06-30] MEDS: Dextrose 5%/0.45% NS 1,000 ML IV SCH ×2 (06:42→17:38)
[2018-06-30 07:43] LABS: HEMOGLOBIN 14.1 g/dL (12.0-18.0); MEAN CELL VOLUME 89.1 fL (80.0-94.0); MEAN CORPUSCULAR HEMOGLOBIN 31.8 pg (27.0-31.0); MEAN CORPUSCULAR HGB CONC 35.7 g/dL (33.0-37.0); RBC 4.45 Mil/uL (4.40-5.90)
[2018-06-30 08:20] LABS: ALB/GLOB RATIO 1.1 (1.0-2.1); ALBUMIN 3.9 g/dL (3.5-5.0); ALT/SGPT 25 U/L (21-72); AST/SGOT 22 U/L (17-59); BLOOD UREA NITROGEN 13 mg/dL (9-20); CALCIUM 8.5 mg/dl (8.6-10.4); GFR NON-AFRICAN AMERICAN > 60; LIPASE 299 U/L (23-300)
[2018-06-30] MEDS: Enoxaparin 40 mg Syringe SC SCH ×3 (09:46→10:00)
--- NOTE | 2018-06-30 21:53 | CP.PCM.HP ---
Past Patient History - Infectious Disease Hx of Infectious Diseases: None - Past Medical History & Family History Past Medical History?: Yes - Past Social History Smoking Status: marijuana - CARDIAC Hx Cardiac Disorders: No - PULMONARY Hx Respiratory Disorders: No - NEUROLOGICAL Hx Neurological Disorder: No - HEENT Hx HEENT Problems: No - RENAL Hx Chronic Kidney Disease: No - ENDOCRINE/METABOLIC Hx Endocrine Disorders: No - HEMATOLOGICAL/ONCOLOGICAL Hx Blood Disorders: No - INTEGUMENTARY Hx Dermatological Problems: No - MUSCULOSKELETAL/RHEUMATOLOGICAL Hx Falls: No - GASTROINTESTINAL Hx Gastrointestinal Disorders: Yes Hx Pancreatitis: Yes - GENITOURINARY/GYNECOLOGICAL Hx Genitourinary Disorders: No - PSYCHIATRIC Hx Substance Use: No - SURGICAL HISTORY Hx Surgeries: No Other/Comment: Hernia repair 6 yrs old - ANESTHESIA Hx Anesthesia: Yes Hx Anesthesia Reactions: No (not sure) Meds Allergies/Adverse Reactions: Allergies Allergy/AdvReac Type Severity Reaction Status Date / Time No Known Allergies Allergy Verified 05/23/18 17:52 Results - Vital Signs Recent Vital Signs: Last Vital Signs Temp 98.2 F 06/30/18 15:00 Pulse 65 06/30/18 15:00 Resp 20 06/30/18 15:00 BP 138/86 06/30/18 15:00 Pulse Ox 98 06/30/18 15:00 - Labs Result Diagrams: 06/30/18 07:37 06/30/18 07:37 Labs: Laboratory Results - last 24 hr 06/29/18 06/29/18 06/30/18 22:15 22:40 07:37 WBC 13.0 H RBC 4.45 Hgb 14.1 Hct 39.7 MCV 89.1 MCH 31.8 H MCHC 35.7 RDW 13.0 Plt Count 312 MPV 8.0 Sodium Potassium Chloride Carbon Dioxide Anion Gap BUN Creatinine Est GFR ( Amer) Est GFR (Non-Af Amer) Random Glucose Calcium Total Bilirubin AST ALT Alkaline Phosphatase Total Protein Albumin Globulin Albumin/Globulin Ratio Triglycerides 2597 H Cholesterol 251 H LDL Cholesterol Direct < 30 HDL Cholesterol 32 Lipase Alpha Fetoprotein Carcinoembryonic Ag CA 19-9 Antigen Urine Opiates Screen Negative Urine Methadone Screen Negative Ur Barbiturates Screen Negative Ur Phencyclidine Scrn Negative Ur Amphetamines Screen Negative U Benzodiazepines Scrn Negative U Oth Cocaine Metabols Negative U Cannabinoids Screen Positive H 06/30/18 06/30/18 06/30/18 07:37 19:30 19:30 WBC RBC Hgb Hct MCV MCH MCHC RDW Plt Count MPV Sodium 135 Potassium 3.8 Chloride 104 Carbon Dioxide 21 L Anion Gap 14 BUN 13 Creatinine 1.0 Est GFR ( Amer) > 60 Est GFR (Non-Af Amer) > 60 Random Glucose 121 H Calcium 8.5 L Total Bilirubin 0.9 AST 22 ALT 25 Alkaline Phosphatase 110 Total Protein 7.6 Albumin 3.9 Globulin 3.7 Albumin/Globulin Ratio 1.1 Triglycerides Cholesterol LDL Cholesterol Direct HDL Cholesterol Lipase 299 Alpha Fetoprotein 2.5 Carcinoembryonic Ag 2.7 CA 19-9 Antigen 6.4 Urine Opiates Screen Urine Methadone Screen Ur Barbiturates Screen Ur Phencyclidine Scrn Ur Amphetamines Screen U Benzodiazepines Scrn U Oth Cocaine Metabols U Cannabinoids Screen
[2018-07-01] MEDS: Dextrose 5%/0.45% NS 1,000 ML IV SCH ×3 (03:00→22:07)
[2018-07-01 06:48] LABS: AMYLASE 96 U/L (30-110); LIPASE 190 U/L (23-300)
[2018-07-01] MEDS: Enoxaparin 40 mg Syringe SC SCH (10:05)
[2018-07-01] MEDS: metroNIDAZOLE IV 500 mg/100 ml 500 MG/100 ML BAG IVPB SCH ×2 (13:45→21:02)
--- NOTE | 2018-07-01 20:32 | PN ---
DATE: 07/01/2018 LOCATION: 570, bed A. SUBJECTIVE: This is a 52-year-old male, seen and examined in rounds, for GI consultation initially on 06/30/2018, examined again tonight with much of this abdominal pain. No reported nausea, vomiting, dyspepsia or significant shortness of breath. Today's lab result showed normal lipase and amylase level and it was reported that the patient has normal alpha-fetoprotein, CEA and CA 19-9. PHYSICAL EXAMINATION: GENERAL: A 52-year-old male awake, alert and oriented. VITAL SIGNS: Afebrile with pulse 66, respiratory rate 20 to 22, blood pressure 130/82. HEENT: Showed pale, dry, oral mucoid membrane. Nonicteric sclerae. LUNGS: Few scattered crepitation. Decreased air entry at bases. HEART: Positive S1 and S2. ABDOMEN: Soft with slight generalized tenderness. No mass or organomegaly. Bowel sounds are present. EXTREMITIES: Without edema, clubbing or cyanosis. NEUROLOGIC: No reported new neurological deficit, sensory or motor. IMPRESSION: 1. Acute pancreatitis, resolving. 2. Re-exacerbation of peptic ulcer disease. SUGGESTION: 1. Continue current management. 2. Advance diet gradually. Harjinder Seo MD
--- NOTE | 2018-07-01 23:49 | CP.PCM.PN ---
Subjective - Subjective Subjective: dictated Objective - Vital Signs/Intake and Output Vital Signs (last 24 hours): Temp Pulse Resp BP Pulse Ox 97 F L 64 20 139/84 96 07/01/18 16:00 07/01/18 16:00 07/01/18 07:00 07/01/18 16:00 07/01/18 16:00 - Medications Medications: Current Medications Enoxaparin Sodium (Lovenox) 40 mg SC DAILY [facility] Last Admin: 07/01/18 10:05 Dose: Not Given Famotidine (Pepcid) 20 mg IVP Q12 [facility] Last Admin: 07/01/18 21:02 Dose: 20 mg Dextrose/Sodium Chloride (Dextrose 5%/0.45% Ns 1000 Ml) 1,000 mls @ 100 mls/hr IV .Q10H [facility] Last Admin: 07/01/18 22:07 Dose: Not Given Metronidazole (Flagyl) 500 mg in 100 mls @ 100 mls/hr IVPB Q8H [facility]; Protocol Stop: 07/08/18 12:46 Last Admin: 07/01/18 21:02 Dose: 100 mls/hr - Labs Labs: 06/30/18 07:37 06/30/18 07:37
--- NOTE | 2018-07-02 02:40 | HP ---
CHIEF COMPLIANT: Abdominal pain x1 day. HISTORY OF PRESENT ILLNESS: This is a 52-year-old male, well known to me with history of pancreatitis, hypertriglyceridemia who is complaint with his diet, medication, and followup. The patient has history of disability in the past because of pancreatitis with multiple hospitalization. More recently, he was doing well till now. The patient was recently discharged with pancreatitis. He came back again with abdominal pain, nausea, vomiting x1 day; epigastric, sharp, radiating to the back, associated with nausea and vomiting. According to patient, he felt as if he has pancreatitis again. He denies any fever, chills, or rigors. He denies any diarrhea. He denies any history of polyuria, polydipsia, polyphagia. He denies any history of hematuria or pyuria. PAST MEDICAL HISTORY: Pancreatitis. SOCIAL HISTORY: He is a nonsmoker. Social ETOH user. He uses marijuana. CURRENT MEDICATIONS: He is not taking any medications. PHYSICAL EXAMINATION: GENERAL: A middle-aged male, in moderate distress. VITAL SIGNS: Blood pressure is 138/86, pulse 65, respiratory rate 20, temperature 98.2. SKIN: No rashes. No bruises. No purpura. HEENT: Atraumatic and normocephalic. Negative pallor. Negative jaundice. NECK: Supple. No JVD. CHEST WALL: Bilateral symmetrical expansion. LUNGS: Clear. No rales, no rhonchi. CARDIOVASCULAR SYSTEM: PMI in the fifth intercostal space. S1 and S2 regular. ABDOMEN: Soft. Epigastric tenderness. Bowel sounds present. RECTAL: Negative. EXTREMITIES: No clubbing, cyanosis, or edema. CENTRAL NERVOUS SYSTEM: Awake, alert, oriented x3. ASSESSMENT: 1. Pancreatitis. 2. Dehydration. 3. Hypertriglyceridemia. PLAN: N.p.o., IV fluids. Monitor the patient. Hermes Faith MD
--- NOTE | 2018-07-02 03:33 | PN ---
DATE: 07/01/2018 SUBJECTIVE: Dom Daniel is on clear liquid diet. He is feeling better. Decreased abdominal pain. No nausea or vomiting. Bowel movement is present. PHYSICAL EXAMINATION: VITAL SIGNS: Blood pressure 139/84, pulse 64, respiratory rate 12, and temperature 97. LUNGS: Clear. ABDOMEN: Soft. ASSESSMENT: 1. Pancreatitis. 2. Hypertriglyceridemia. PLAN: Continue diet. Monitor the patient. Hermes Faith MD
[2018-07-02] MEDS: metroNIDAZOLE IV 500 mg/100 ml 500 MG/100 ML BAG IVPB SCH ×2 (05:38→13:20)
[2018-07-02 07:25] VITALS: BP 134/81; PULSE 65; TEMP 97.7; O2SAT 98
[2018-07-02] MEDS: Dextrose 5%/0.45% NS 1,000 ML IV SCH ×2 (09:10→13:24)
[2018-07-02] MEDS: Enoxaparin 40 mg Syringe SC SCH (09:11)
--- NOTE | 2018-07-02 14:25 | CP.PCM.PN ---
Subjective - Date & Time of Evaluation Date of Evaluation: 07/02/18 Time of Evaluation: 14:25 - Subjective Subjective: PATIENT SEEN AND EXAMINED AT THE BEDSIDE Objective - Vital Signs/Intake and Output Vital Signs (last 24 hours): Temp Pulse Resp BP Pulse Ox 97.7 F 65 20 134/81 98 07/02/18 07:00 07/02/18 07:00 07/02/18 07:00 07/02/18 07:00 07/02/18 07:00 - Medications Medications: Current Medications Enoxaparin Sodium (Lovenox) 40 mg SC DAILY [facility] Last Admin: 07/02/18 09:11 Dose: Not Given Famotidine (Pepcid) 20 mg IVP Q12 [facility] Last Admin: 07/02/18 09:09 Dose: 20 mg Dextrose/Sodium Chloride (Dextrose 5%/0.45% Ns 1000 Ml) 1,000 mls @ 100 mls/hr IV .Q10H [facility] Last Admin: 07/02/18 13:24 Dose: 100 mls/hr Metronidazole (Flagyl) 500 mg in 100 mls @ 100 mls/hr IVPB Q8H [facility]; Protocol Stop: 07/08/18 12:46 Last Admin: 07/02/18 13:20 Dose: 100 mls/hr - Labs Labs: 06/30/18 07:37 06/30/18 07:37 Assessment and Plan - Assessment and Plan (Free Text) Assessment: FOLLOW UP WITH DR CANDELARIO IN HIS OFFICE ----CALL FOR APPOINTMENT FOLLOW UP WITH DR FERGUSON -----CALL FOR APPOINTMENT CONTINUE HOME MEDICATION NEW PRESCRIPTION GIVEN LOVAZA 2G PO BID ACITIVITY TOLERATED CALL DR CANDELARIO OR GO TO THE EMERGENCY ROOM IF SYMPTOM RETURN OR WORSEINING
--- NOTE | 2018-07-02 14:55 | PN ---
DATE: 07/02/2018 LOCATION: 570, bed A. SUBJECTIVE: This is a 52-year-old male seen and examined in rounds with less abdominal pain, less nausea with less dyspepsia, but no vomiting. Tolerating somewhat oral intake. The entire chart is reviewed including but not limited to the most recent lab and the radiology study results, current and the previous medication list, current and the previous medical events. The patient tolerated oral intake well. No chest pain, palpitation, shortness of breath, chills, or fever. PHYSICAL EXAMINATION: GENERAL: A 52-year-old male. VITAL SIGNS: Afebrile with pulse of 62, respiratory rate 20 to 22, blood pressure 140/84. HEENT: Pale dry oral mucus membrane. Nonicteric sclerae. LUNGS: Few scattered crepitation. Decreased air entry at bases. HEART: Positive S1 and S2. ABDOMEN: Soft with mild generalized tenderness. No mass or organomegaly. No rebound tenderness or guarding. EXTREMITIES: No significant clubbing, cyanosis, or edema. CENTRAL NERVOUS SYSTEM: No reported new neurological deficit, sensory or motor. IMPRESSION: 1. Re-exacerbation of peptic ulcer disease. 2. Acute pancreatitis, subsiding. SUGGESTION: 1. Continue current management. 2. Abdominal ultrasound. 3. Proton pump inhibitors. If the patient reported recurrent abdominal pain, then upper endoscopy to be scheduled; otherwise, close observation to follow. Harjinder Seo MD
--- NOTE | 2018-07-02 19:10 | CP.PCM.DIS ---
Provider - Provider Date of Admission: 06/29/18 18:35 Attending physician: Hermes Faith MD Consults: 06/29/18 20:42 Gastroenterology Consult Routine Comment: Consulting Provider: Harjinder Castellano Consulting Physician: Harjinder Castellano Reason for Consult: pancreatitis Hospital Course - Lab Results Lab Results: Most Recent Lab Values WBC 13.0 K/uL (4.8-10.8) H 06/30/18 07:37 RBC 4.45 Mil/uL (4.40-5.90) 06/30/18 07:37 Hgb 14.1 g/dL (12.0-18.0) 06/30/18 07:37 Hct 39.7 % (35.0-51.0) 06/30/18 07:37 MCV 89.1 fL (80.0-94.0) 06/30/18 07:37 MCH 31.8 pg (27.0-31.0) H 06/30/18 07:37 MCHC 35.7 g/dL (33.0-37.0) 06/30/18 07:37 RDW 13.0 % (11.5-14.5) 06/30/18 07:37 Plt Count 312 K/uL (130-400) 06/30/18 07:37 MPV 8.0 fL (7.2-11.7) 06/30/18 07:37 Neut % (Auto) 84.8 % (50.0-75.0) H 06/29/18 17:30 Lymph % (Auto) 9.3 % (20.0-40.0) L 06/29/18 17:30 [place] % (Auto) 3.9 % (0.0-10.0) 06/29/18 17:30 Eos % (Auto) 1.4 % (0.0-4.0) 06/29/18 17:30 Baso % (Auto) 0.6 % (0.0-2.0) 06/29/18 17:30 Neut # (Auto) 12.8 K/uL (1.8-7.0) H 06/29/18 17:30 Lymph # (Auto) 1.4 K/uL (1.0-4.3) 06/29/18 17:30 [place] # (Auto) 0.6 K/uL (0.0-0.8) 06/29/18 17:30 Eos # (Auto) 0.2 K/uL (0.0-0.7) 06/29/18 17:30 Baso # (Auto) 0.1 K/uL (0.0-0.2) 06/29/18 17:30 Neutrophils % (Manual) 89 % (50-75) H 06/29/18 17:30 Lymphocytes % (Manual) 7 % (20-40) L 06/29/18 17:30 Monocytes % (Manual) 2 % (0-10) 06/29/18 17:30 Eosinophils % (Manual) 2 % (0-4) 06/29/18 17:30 Platelet Estimate Normal (NORMAL) 06/29/18 17:30 Sodium 135 mmol/L (132-148) 06/30/18 07:37 Potassium 3.8 mmol/L (3.6-5.2) 06/30/18 07:37 Chloride 104 mmol/L (98-107) 06/30/18 07:37 Carbon Dioxide 21 mmol/L (22-30) L 06/30/18 07:37 Anion Gap 14 (10-20) 06/30/18 07:37 BUN 13 mg/dL (9-20) 06/30/18 07:37 Creatinine 1.0 mg/dL (0.8-1.5) 06/30/18 07:37 Est GFR ( Amer) > 60 06/30/18 07:37 Est GFR (Non-Af Amer) > 60 06/30/18 07:37 Random Glucose 121 mg/dL (75-110) H 06/30/18 07:37 Calcium 8.5 mg/dl (8.6-10.4) L 06/30/18 07:37 Total Bilirubin 0.9 mg/dL (0.2-1.3) 06/30/18 07:37 AST 22 U/L (17-59) 06/30/18 07:37 ALT 25 U/L (21-72) 06/30/18 07:37 Alkaline Phosphatase 110 U/L (38-126) 06/30/18 07:37 Lactate Dehydrogenase 549 U/L (313-618) 06/29/18 17:30 Total Protein 7.6 g/dL (6.3-8.3) 06/30/18 07:37 Albumin 3.9 g/dL (3.5-5.0) 06/30/18 07:37 Globulin 3.7 gm/dL (2.2-3.9) 06/30/18 07:37 Albumin/Globulin Ratio 1.1 (1.0-2.1) 06/30/18 07:37 Triglycerides 2597 mg/dL (0-149) H 06/29/18 22:15 Cholesterol 251 mg/dL (0-199) H 06/29/18 22:15 LDL Cholesterol Direct < 30 mg/dL (0-129) 06/29/18 22:15 HDL Cholesterol 32 mg/dL (30-70) 06/29/18 22:15 Amylase 96 U/L (30-110) 07/01/18 06:28 Lipase 190 U/L (23-300) 07/01/18 06:28 Alpha Fetoprotein 2.5 ng/mL (0.0-7.5) 06/30/18 19:30 Carcinoembryonic Ag 2.7 ng/mL (0-3.0) 06/30/18 19:30 CA 19-9 Antigen 6.4 U/mL (0-37) 06/30/18 19:30 Urine Opiates Screen Negative (NEGATIVE) 06/29/18 22:40 Urine Methadone Screen Negative (NEGATIVE) 06/29/18 22:40 Ur Barbiturates Screen Negative (NEGATIVE) 06/29/18 22:40 Ur Phencyclidine Scrn Negative (NEGATIVE) 06/29/18 22:40 Ur Amphetamines Screen Negative (NEGATIVE) 06/29/18 22:40 U Benzodiazepines Scrn Negative (NEGATIVE) 06/29/18 22:40 U Oth Cocaine Metabols Negative (NEGATIVE) 06/29/18 22:40 U Cannabinoids Screen Positive (NEGATIVE) H 06/29/18 22:40 Discharge Plan - Discharge Medications Prescriptions: [id number] Ethyl Esters 1 GM [Lovaza] 2 gm PO BID 30 Days sgl - Follow Up Plan Condition: FAIR Disposition: HOME/ ROUTINE Instructions: Pancreatitis (DC), Leukocytosis (DC) Additional Instructions: FOLLOW UP WITH DR FAITH IN HIS OFFICE ----CALL FOR APPOINTMENT FOLLOW UP WITH DR CASTELLANO -----CALL FOR APPOINTMENT CONTINUE HOME MEDICATION NEW PRESCRIPTION GIVEN LOVAZA 2G PO BID ACITIVITY TOLERATED CALL DR FAITH OR GO TO THE EMERGENCY ROOM IF SYMPTOM RETURN OR WORSEINING Referrals: Harjinder Castellano [Staff Provider] - Hermes Faith MD [Staff Provider] -
--- NOTE | 2018-07-05 05:53 | CON ---
DATE: 06/30/[address] Seo to Dr. Hermes Faith. I was called for a GI consultation by the admitting MD. The patient is seen and fully examined on 06/30/2018 as requested by the admitting medical staff. A short handwritten consultation sheet left in the chart at the time of my GI consultation and full examination of the patient on 06/30/2018. The entire chart is reviewed including but not limited to most recent lab and radiology study results, current and the previous medication lists, current and the previous medical events. Case discussed with the staff at length. HISTORY OF PRESENT ILLNESS: This is a 52-year-old male who was admitted to the hospital with a complaint of severe abdominal pain mainly in the mid epigastric area associated with some nausea, dyspepsia, and vomiting of nonbloody material, but no actual chest pain, palpitation, chills, fever, significant shortness of breath. No reported recent history of change of bowel movement habit. PAST MEDICAL HISTORY: Including but not limited to, 1. Peptic ulcer disease. 2. Recurrent pancreatitis, most likely secondary to alcoholism. 3. Known history of alcohol intake. FAMILY HISTORY: Unknown. SOCIAL HISTORY: Positive for alcohol intake. No cigarette smoking. CURRENT MEDICATIONS: Post-admission medication lists were reviewed. After being admitted to the hospital, the patient was found to have leukocytosis of 15 with CO2 content of 21 indicative of metabolic acidosis with increased blood glucose level of 211. Also, he was found to have elevated serum lipase and amylase levels. PHYSICAL EXAMINATION: GENERAL: A 52-year-old male. Appears to be awake, alert. VITAL SIGNS: Afebrile with a pulse of 58, respiratory rate 20 to 22, blood pressure of 170/98. LYMPH NODES: No lymphadenitis or lymphadenopathy. LUNGS: Few scattered crepitation with decreased air entry at bases. HEART: Positive S1 and S2. NEUROLOGIC: No reported new neurological deficits, sensory or motor. IMPRESSION: 1. Re-exacerbation of peptic ulcer disease. 2. Acute pancreatitis, most likely alcohol induced. 3. Leukocytosis secondary to above most likely. 4. Electrolyte imbalance secondary to above. 5. Metabolic acidosis secondary to above. SUGGESTIONS: 1. Agree with your plan. 2. Abdominal ultrasound. 3. Keep n.p.o. until serum lipase and amylase levels normal. 4. Antireflux measures. 5. Flagyl IV. 6. Reglan IV. 7. Proton pump inhibitors IV. 8. Further recommendations to follow. Thank you for letting me to participate in your patient's case management. Harjinder Seo MD
== END 2018-07-02 15:12 | disposition home or self-care (01) | DRG 204 ==
LOC: C.ER 16:47 → C.9E 18:35 → C.5S 22:59
PROVIDERS: ADMIT Internal Medicine; ATTEND Internal Medicine
DX: K85.90 Acute pancreatitis without necrosis or infection, unspecified (principal); E86.0 Dehydration; E87.2 Acidosis; F12.90 Cannabis use, unspecified, uncomplicated; E78.1 Pure hyperglyceridemia; K27.9 Peptic ulcer, site unspecified, unspecified as acute or chronic, without hemorrhage or perforation; K86.1 Other chronic pancreatitis

== ENCOUNTER 2018-07-22 10:08 | Inpatient (IN) | payer MEDICAID ==
[2018-07-22] MEDS ORDERED: Sodium Chloride 0.9% 1,000 ML IV STA (11:40)
[2018-07-22] MEDS ORDERED: Sodium Chloride 0.9% 1,000 ML ONE (11:43)
[2018-07-22] MEDS ORDERED: Morphine 4 MG/ML VIAL ONE (11:43)
--- NOTE | 2018-07-22 11:54 | C.PDOC ---
History Of Present Illness Patient is a 52 year old male, with a PMHx of alcoholic pancreatitis for the past 10 years, presents to the ED for evaluation of abdominal pain and vomiting that began at 5 in the morning. Patient states that his vomiting episodes have been consistent every half an hour. Patient was seen at this facility 3 weeks ago for similar symptoms and discharged home. Patient also notes that he stopped drinking 10 years ago. He denies any fever, chills, chest pain or shortness of breath. PMD: Dr. Faith Time Seen by Provider: 07/22/18 10:33 Chief Complaint (Nursing): Abdominal Pain History Per: Patient History/Exam Limitations: no limitations Onset/Duration Of Symptoms: Hrs Current Symptoms Are (Timing): Still Present Associated Symptoms: Nausea, Vomiting (every half hour) Recent travel outside of the [place]: No Additional History Per: Patient Past Medical History Reviewed: Historical Data, Nursing Documentation, Vital Signs Vital Signs: Last Vital Signs Temp 98 F 07/22/18 10:19 Pulse 101 H 07/22/18 10:19 Resp 24 07/22/18 10:19 BP 176/110 H 07/22/18 10:19 Pulse Ox 98 07/22/18 10:19 - Medical History PMH: Pancreatitis Denies: Chronic Kidney Disease Surgical History: No Surg Hx Family History: States: Unknown Family Hx - Social History Hx Tobacco Use: No Hx Alcohol Use: Yes (past hx of ETOH) Hx Substance Use: No - Immunization History Hx Tetanus Toxoid Vaccination: No Hx Influenza Vaccination: No Hx Pneumococcal Vaccination: No Review Of Systems Except As Marked, All Systems Reviewed And Found Negative. Constitutional: Negative for: Fever, Chills Cardiovascular: Negative for: Chest Pain Respiratory: Negative for: Shortness of Breath Gastrointestinal: Positive for: Nausea, Vomiting (every half hour ), Abdominal Pain Physical Exam - Physical Exam Appears: Non-toxic, Other (uncomfortable) Skin: Warm, Dry Head: Atraumatic, Normacephalic Eye(s): bilateral: Normal Inspection Oral Mucosa: Moist Neck: Normal ROM, Supple Chest: Symmetrical Cardiovascular: Rhythm Regular Respiratory: Normal Breath Sounds Gastrointestinal/Abdominal: Soft, Tenderness (epigastric and LUQ) Back: Normal Inspection Extremity: Normal ROM Neurological/Psych: Oriented x3 ED Course And Treatment - Laboratory Results Result Diagrams: 07/22/18 11:53 07/22/18 11:53 O2 Sat by Pulse Oximetry: 98 (on RA ) Pulse Ox Interpretation: Normal - CT Scan/US CT of abdomen/pelvis Other Rad Studies (CT/US): Read By Radiologist, Radiology Report Reviewed CT/US Interpretation: Accession No. : [id number]. Patient Name / ID : YASMINE COX / [id number]. Exam Date : 07/22/2018 13:32:29 ( Approved ). Study Comment : Sex / Age : M / 52Y. Creator : Kinsey Carranza. Dictator : Martha Bradley MD. Final Rail Cutter : Youth Agent : Martha Bradley MD. Approver2 : Report Date : 07/22/2018 13:47:17. My Comment : . Date of service: 07/22/2018. PROCEDURE: CT Abdomen and Pelvis with contrast. HISTORY: Abdominal pain, leucocytosis. COMPARISON: 12/07/2017. TECHNIQUE: CT scan of the abdomen and pelvis was performed after administration of intravenous contrast. Oral contrast was not administered. Coronal and sagittal reformatted images were obtained. Contrast dose: 100 mL Visipaque 320. Radiation dose: Total exam DLP = 907.87 mGy-cm. This CT exam was performed using one or more of the following dose reduction techniques: Automated exposure control, adjustment of the mA and/or kV according to patient size, and/or use of iterative rec onstruction technique. FINDINGS: LOWER THORAX: There is subsegmental atelectasis in both lower lobes. LIVER: Mild hepatomegaly and fatty liver. No gross lesion or ductal dilatation. GALLBLADDER AND BILE DUCTS: Well distended. No calcified gallstones, wall thickening or pericholecystic fluid. PANCREAS: There is focal moderate enlargement of the head of the pancreas with indistinct margins, peripancreatic inflammatory changes and edema. Severe peripancreatic inflammatory changes and edema also extend to the periduodenal region and superior retroperitoneum. There is also mild enlargement of the body and tail of the pancreas with mild indistinct margins and peripancreatic inflammatory changes. No ductal dilatation or calcifications. SPLEEN: Normal in size and appearance. ADRENALS: No discrete nodule. KIDNEYS AND URETERS: Normal in size with homogeneous enhancement. No hydronephrosis. No solid mass. There is a stable exophytic cyst in the lower pole of the right kidney. There are stable subcentimeter cysts in the left kidney. VASCULATURE: No aortic aneurysm. ROSENDO L: Evaluation of the bowel is limited in the absence of oral contrast. The small bowel loops are normal in caliber. The colon is grossly normal in appearance. No bowel wall thickening or obstruction. APPENDIX: Normal appendix. PERITONEUM: No free fluid. No free air. LYMPH NODES: No enlarged lymph nodes. BLADDER: Well distended and normal in appearance. REPRODUCTIVE: The uterus is normal in size. BONES: No acute fracture. Within normal limits for the patient's age. OTHER FINDINGS: None. IMPRESSION: 1. Acute pancreatitis predominantly involving the head of the pancreas with significant peripancreatic inflammatory changes extending into the periduodenal region and superior retroperitoneum. 2. No other significant interval change since the prior examination. Progress Note: Bloodwork and Urinalysis ordered. Morphine 4mg IVP, Pantoprozole 40 mg IVP, Zofran 4 mg IVP administered. Case was d/w who accepted patient to his service for an admission. Disposition - Disposition Disposition: HOSPITALIZED Disposition Time: 15:22 Condition: FAIR Forms: [facility] ([place]) - Clinical Impression Clinical Impression: Pancreatitis, acute - PA / [employer] / Resident Statement MD/DO has reviewed & agrees with the documentation as recorded. - Scribe Statement The provider has reviewed the documentation as recorded by the Donavan Quintero All medical record entries made by the Donavan were at my direction and personally dictated by me. I have reviewed the chart and agree that the record accurately reflects my personal performance of the history, physical exam, medical decision making, and the department course for this patient. I have also personally directed, reviewed, and agree with the discharge instructions and disposition. Decision To Admit - Pt Status Changed To: Hospital Disposition Of: Inpatient - Admit Certification Admit to Inpatient:: After my assessment, the patient will require hospitalization for at least two midnights. This is because of the severity of symptoms shown, intensity of services needed, and/or the medical risk in this patient being treated as an outpatient. - InPatient: Physician Admission Certification:: Pt with acute pancreatitis will need more than 2 days of hospitalization. - . Bed Request Type: Regular Admitting Physician: Hermes Faith Patient Diagnosis: Pancreatitis, acute
[2018-07-22 12:04] LABS: EOS # 0.1 K/uL (0.0-0.7); LYMPH # 1.2 K/uL (1.0-4.3); MONO # 0.4 K/uL (0.0-0.8); NEUT % 90.9 % (50.0-75.0); NRBC % 0.2 % (0.0-2.0); WHITE BLOOD COUNT 18.9 K/uL (4.8-10.8)
[2018-07-22 12:05] LABS: SQUAMOUS EPITHIAL < 1 /hpf (0-5); URINE BILIRUBIN NEGATIVE (NEGATIVE); URINE BLOOD 1+ (NEGATIVE); URINE CLARITY Clear (Clear); URINE COLOR Yellow (YELLOW); URINE GLUCOSE (UA) NORMAL (Normal); URINE LEUKOCYTE ESTERASE NEG Leu/uL (Negative); URINE PROTEIN 2+ mg/dL (NEGATIVE); URINE UROBILINOGEN NORMAL mg/dL (0.2-1.0)
[2018-07-22 12:10] LABS: BASO # 0.1 K/uL (0.0-0.2); BASO % 0.3 % (0.0-2.0); EOS % 0.4 % (0.0-4.0); HEMOGLOBIN 15.1 g/dL (12.0-18.0); LYMPH % 6.1 % (20.0-40.0); MEAN CELL VOLUME 90.2 fL (80.0-94.0); MEAN CORPUSCULAR HEMOGLOBIN 32.5 pg (27.0-31.0); MEAN PLATELET VOLUME 7.9 fL (7.2-11.7); MONO % 2.3 % (0.0-10.0); NEUT # 17.2 K/uL (1.8-7.0); PLATELET COUNT 384 K/uL (130-400); RBC 4.64 Mil/uL (4.40-5.90); RED CELL DISTRIBUTION WIDTH 13.3 % (11.5-14.5)
[2018-07-22 12:23] LABS: ALB/GLOB RATIO 1.1 (1.0-2.1); ALBUMIN 4.8 g/dL (3.5-5.0); ALT/SGPT 32 U/L (21-72); AST/SGOT 38 U/L (17-59); BLOOD UREA NITROGEN 17 mg/dL (9-20); CALCIUM 9.1 mg/dl (8.6-10.4); GFR NON-AFRICAN AMERICAN > 60
[2018-07-22 12:25] LABS: BARBITURATES, UR NEGATIVE (NEGATIVE); BENZODIAZEPINES, UR NEGATIVE (NEGATIVE); OPIATES, UR NEGATIVE (NEGATIVE); PHENCYCLIDINE, UR NEGATIVE (NEGATIVE)
[2018-07-22 12:39] LABS: LIPASE 3648 U/L (23-300)
[2018-07-22] MEDS ORDERED: Iodixanol 320 MG/ML 100 ML BOTTLE IV ONE (12:40)
[2018-07-22 12:42] LABS: BANDS 1 % (0-2); LYMPHOCYTE 9 % (20-40); MONOCYTE 1 % (0-10); NEUTROPHIL 89 % (50-75); PLATELET ESTIMATE NORMAL (NORMAL); TOTAL CELLS COUNTED 100
--- NOTE | 2018-07-22 14:18 | CT ---
Date of service: 07/22/2018 PROCEDURE: CT Abdomen and Pelvis with contrast HISTORY: Abdominal pain, leucocytosis COMPARISON: 12/07/2017. TECHNIQUE: CT scan of the abdomen and pelvis was performed after administration of intravenous contrast. Oral contrast was not administered. Coronal and sagittal reformatted images were obtained. Contrast dose: 100 mL Visipaque 320 Radiation dose: Total exam DLP = 907.87 mGy-cm. This CT exam was performed using one or more of the following dose reduction techniques: Automated exposure control, adjustment of the mA and/or kV according to patient size, and/or use of iterative reconstruction technique. FINDINGS: LOWER THORAX: There is subsegmental atelectasis in both lower lobes. LIVER: Mild hepatomegaly and fatty liver. No gross lesion or ductal dilatation. GALLBLADDER AND BILE DUCTS: Well distended. No calcified gallstones, wall thickening or pericholecystic fluid. PANCREAS: There is focal moderate enlargement of the head of the pancreas with indistinct margins, peripancreatic inflammatory changes and edema. Severe peripancreatic inflammatory changes and edema also extend to the periduodenal region and superior retroperitoneum. There is also mild enlargement of the body and tail of the pancreas with mild indistinct margins and peripancreatic inflammatory changes. No ductal dilatation or calcifications. SPLEEN: Normal in size and appearance. ADRENALS: No discrete nodule. KIDNEYS AND URETERS: Normal in size with homogeneous enhancement. No hydronephrosis. No solid mass. There is a stable exophytic cyst in the lower pole of the right kidney. There are stable subcentimeter cysts in the left kidney. VASCULATURE: No aortic aneurysm. BOWEL: Evaluation of the bowel is limited in the absence of oral contrast. The small bowel loops are normal in caliber. The colon is grossly normal in appearance. No bowel wall thickening or obstruction. APPENDIX: Normal appendix. PERITONEUM: No free fluid. No free air. LYMPH NODES: No enlarged lymph nodes. BLADDER: Well distended and normal in appearance. REPRODUCTIVE: The uterus is normal in size. BONES: No acute fracture. Within normal limits for the patient's age. OTHER FINDINGS: None. IMPRESSION: 1. Acute pancreatitis predominantly involving the head of the pancreas with significant peripancreatic inflammatory changes extending into the periduodenal region and superior retroperitoneum. 2. No other significant interval change since the prior examination.
[2018-07-22] MEDS: Sodium Chloride 0.9% 1,000 ML IV ONE (16:56)
[2018-07-22] MEDS: metroNIDAZOLE IV 500 mg/100 ml 500 MG/100 ML BAG IVPB SCH (19:06)
--- NOTE | 2018-07-22 21:51 | CP.PCM.HP ---
Past Patient History - Infectious Disease Hx of Infectious Diseases: None - Past Medical History & Family History Past Medical History?: Yes - Past Social History Smoking Status: Never Smoked - CARDIAC Hx Cardiac Disorders: No - PULMONARY Hx Respiratory Disorders: No - NEUROLOGICAL Hx Neurological Disorder: No - HEENT Hx HEENT Problems: No - RENAL Hx Chronic Kidney Disease: No - ENDOCRINE/METABOLIC Hx Endocrine Disorders: No - HEMATOLOGICAL/ONCOLOGICAL Hx Blood Disorders: No - INTEGUMENTARY Hx Dermatological Problems: No - MUSCULOSKELETAL/RHEUMATOLOGICAL Hx Falls: No - GASTROINTESTINAL Hx Pancreatitis: Yes - GENITOURINARY/GYNECOLOGICAL Hx Genitourinary Disorders: No - PSYCHIATRIC Hx Substance Use: Yes (patient denies but as per lab record patient is postive) - SURGICAL HISTORY Hx Surgeries: Yes Hx Herniorrhaphy: Yes - ANESTHESIA Hx Anesthesia: Yes Hx Anesthesia Reactions: No (not sure) Meds Allergies/Adverse Reactions: Allergies Allergy/AdvReac Type Severity Reaction Status Date / Time No Known Allergies Allergy Verified 05/23/18 17:52 Results - Vital Signs Recent Vital Signs: Last Vital Signs Temp 98.4 F 07/22/18 16:30 Pulse 73 07/22/18 16:30 Resp 18 07/22/18 16:30 BP 145/92 H 07/22/18 16:30 Pulse Ox 96 07/22/18 16:30 - Labs Result Diagrams: 07/22/18 11:53 07/22/18 11:53 Labs: Laboratory Results - last 24 hr 07/22/18 07/22/18 07/22/18 11:53 11:53 11:53 WBC 18.9 H RBC 4.64 Hgb 15.1 Hct 41.8 MCV 90.2 MCH 32.5 H MCHC 36.0 RDW 13.3 Plt Count 384 MPV 7.9 Neut % (Auto) 90.9 H Lymph % (Auto) 6.1 L [place] % (Auto) 2.3 Eos % (Auto) 0.4 Baso % (Auto) 0.3 Neut # (Auto) 17.2 H Lymph # (Auto) 1.2 [place] # (Auto) 0.4 Eos # (Auto) 0.1 Baso # (Auto) 0.1 Neutrophils % (Manual) 89 H Band Neutrophils % 1 Lymphocytes % (Manual) 9 L Monocytes % (Manual) 1 Platelet Estimate Normal RBC Morphology Normal Sodium 139 Potassium 4.2 Chloride 107 Carbon Dioxide 20 L Anion Gap 17 BUN 17 Creatinine 1.0 Est GFR ( Amer) > 60 Est GFR (Non-Af Amer) > 60 Random Glucose 142 H Calcium 9.1 Total Bilirubin 1.1 AST 38 ALT 32 Alkaline Phosphatase 139 H D Ammonia < 9 L Total Protein 9.0 H Albumin 4.8 Globulin 4.2 H Albumin/Globulin Ratio 1.1 Lipase 3648 H Urine Color Urine Clarity Urine pH Ur Specific [place] Urine Protein Urine Glucose (UA) Urine Ketones Urine Blood Urine Nitrate Urine Bilirubin Urine Urobilinogen Ur Leukocyte Esterase Urine WBC (Auto) Urine RBC (Auto) Ur Squamous Epith Cells Hyaline Casts Urine Opiates Screen Urine Methadone Screen Ur Barbiturates Screen Ur Phencyclidine Scrn Ur Amphetamines Screen U Benzodiazepines Scrn U Oth Cocaine Metabols U Cannabinoids Screen 07/22/18 07/22/18 11:57 11:57 WBC RBC Hgb Hct MCV MCH MCHC RDW Plt Count MPV Neut % (Auto) Lymph % (Auto) [place] % (Auto) Eos % (Auto) Baso % (Auto) Neut # (Auto) Lymph # (Auto) [place] # (Auto) Eos # (Auto) Baso # (Auto) Neutrophils % (Manual) Band Neutrophils % Lymphocytes % (Manual) Monocytes % (Manual) Platelet Estimate RBC Morphology Sodium Potassium Chloride Carbon Dioxide Anion Gap BUN Creatinine Est GFR ( Amer) Est GFR (Non-Af Amer) Random Glucose Calcium Total Bilirubin AST ALT Alkaline Phosphatase Ammonia Total Protein Albumin Globulin Albumin/Globulin Ratio Lipase Urine Color Yellow Urine Clarity Clear Urine pH 6.0 Ur Specific [place] 1.020 Urine Protein 2+ H Urine Glucose (UA) Normal Urine Ketones Negative Urine Blood 1+ H Urine Nitrate Negative Urine Bilirubin Negative Urine Urobilinogen Normal Ur Leukocyte Esterase Neg Urine WBC (Auto) 2 Urine RBC (Auto) 5 H Ur Squamous Epith Cells < 1 Hyaline Casts 3-5 H Urine Opiates Screen Negative Urine Methadone Screen Negative Ur Barbiturates Screen Negative Ur Phencyclidine Scrn Negative Ur Amphetamines Screen Negative U Benzodiazepines Scrn Negative U Oth Cocaine Metabols Negative U Cannabinoids Screen Positive H
[2018-07-22 23:57] VITALS: RESP 20
[2018-07-23] MEDS: metroNIDAZOLE IV 500 mg/100 ml 500 MG/100 ML BAG IVPB SCH ×3 (02:09→17:22)
--- NOTE | 2018-07-23 07:41 | PN ---
DATE: 07/23/2018 LOCATION: 369, bed A. SUBJECTIVE: This is a 52-year-old male, seen initially for GI consultation on 07/22/[address] Faith, examined early today in the rounds with recurrent episodes of abdominal pain, but less than before, reported to have also some hematemesis of fresh and old blood before and the time of the admission, none this morning so far. Most recent lab results showed leukocytosis with increased alkaline phosphatase with lipase of 3648. Today's lab is still pending. PHYSICAL EXAMINATION: GENERAL: A 52-year-old male, awake, alert, oriented. VITAL SIGNS: Afebrile with pulse of 72, respiratory rate 18-20, blood pressure of 130/72, still complaining of some abdominal pain with dyspepsia and nausea. HEENT: Showed dry oral mucoid membrane. Nonicteric sclerae. LUNGS: Few scattered mild crepitation. Decreased air entry at bases. HEART: Positive S1 and S2. ABDOMEN: Soft with mild distention and severe midepigastric and midabdominal tenderness. No mass or organomegaly. No rebound tenderness or guarding. EXTREMITIES: Without significant clubbing, cyanosis, or edema. No reported new neurological deficits, sensory or motor. IMPRESSION: 1. Re-exacerbation of peptic ulcer disease with nausea, vomiting, and dyspepsia. The patient had mild episode of hematemesis of some fresh blood before. 2. Re-exacerbation of acute pancreatitis, most likely alcohol abuse, however, hyperlipidemia-induced pancreatitis should be ruled in or out. 3. Leukocytosis secondary to above. 4. Hyperglycemia by recent history. 5. Rule out gastric versus duodenal ulcer. SUGGESTIONS: 1. Continue current management. 2. Lipid profile. 3. Upper endoscopy when the patient is more stable clinically. Cancer markers. Further recommendation to follow. Harjinder Seo MD
[2018-07-23 08:45] LABS: AMYLASE 403 U/L (30-110); HDL CHOLESTEROL 33 mg/dL (30-70)
[2018-07-23 08:55] LABS: LDL CHOLESTEROL 34 mg/dL (0-129)
[2018-07-23 09:23] LABS: LIPASE 2844 U/L (23-300)
[2018-07-23 11:31] LABS: INR 1.1; PROTHROMBIN TIME 12.1 SECONDS (9.7-12.2)
--- NOTE | 2018-07-23 21:04 | CP.PCM.PN ---
Subjective - Subjective Subjective: dictated Objective - Vital Signs/Intake and Output Vital Signs (last 24 hours): Temp Pulse Resp BP Pulse Ox 98.9 F 88 20 143/77 98 07/23/18 16:39 07/23/18 16:39 07/23/18 16:39 07/23/18 16:39 07/23/18 16:39 Intake and Output: 07/23/18 07/24/18 18:59 06:59 Intake Total 1999 Balance 1999 - Medications Medications: Current Medications Metronidazole (Flagyl) 500 mg in 100 mls @ 100 mls/hr IVPB Q8H ELYSSA; Protocol Last Admin: 07/23/18 17:22 Dose: 100 mls/hr Influenza Virus Vaccine (Flucelvax Quad [id number] Syr) 60 mcg IM .ONCE ONE Stop: 07/25/18 10:01 Ketorolac Tromethamine (Toradol) 30 mg IVP Q6 PRN PRN Reason: Pain, severe (8-10) Last Admin: 07/23/18 00:16 Dose: 30 mg Metoclopramide HCl (Reglan) 10 mg IVP Q6H ELYSSA Last Admin: 07/23/18 17:25 Dose: 10 mg Pantoprazole Sodium (Protonix Inj) 40 mg IVP Q12H ELYSSA Last Admin: 07/23/18 17:25 Dose: 40 mg Pneumococcal Polyvalent Vaccine (Pneumovax 23 Vaccine) 0.5 ml IM .ONCE ONE Stop: 07/25/18 10:01 - Labs Labs: 07/22/18 11:53 07/22/18 11:53 PT 12.1 SECONDS (9.7-12.2) 07/23/18 11:09 INR 1.1 07/23/18 11:09 APTT 32 SECONDS (21-34) 07/23/18 11:09
[2018-07-23] MEDS: Sodium Chloride 0.9% 1,000 ML IV ONE (21:52)
--- NOTE | 2018-07-24 00:25 | PN ---
DATE: 07/23/2018 SUBJECTIVE: The patient says that he has upper abdominal pain, dull, radiating to the back, associated with nausea. No vomiting. No fever. No chills. His blood pressure is down. No cough. No sore throat. PHYSICAL EXAMINATION: VITAL SIGNS: Blood pressure 143/77, pulse 88, respiratory rate 20, and temperature 98.9. LUNGS: Clear. CARDIOVASCULAR SYSTEM: S1 and S2, regular. ABDOMEN: Positive epigastric tenderness. ASSESSMENT: 1. Acute pancreatitis due to hypertriglyceridemia. 2. Dehydration. 3. Leukocytosis. 4. Hypertriglyceridemia. PLAN: Repeat labs tomorrow. Continue Flagyl. Monitor for signs of fever, sepsis. Hermes Faith MD
[2018-07-24] MEDS: metroNIDAZOLE IV 500 mg/100 ml 500 MG/100 ML BAG IVPB SCH ×3 (01:35→17:26)
--- NOTE | 2018-07-24 06:33 | HP ---
CHIEF COMPLAINT: Abdominal pain. HISTORY OF PRESENT ILLNESS: This is a 52-year-old male, well known to me with history of chronic recurrent pancreatitis due to hypertriglyceridemia, borderline sugars, who is an active marijuana user, who denies any drinking. He has history of pancreatitis many years ago that was due to alcohol. The patient came in. The patient was recently discharged from [facility] with abdominal pain, nausea, vomiting for an acute bout of pancreatitis. The patient went home. He has been compliant with his diet and medication. He has been using marijuana, but no alcohol. He came in because of nausea, vomiting, abdominal pain, fever, chills, rigors, having dizziness that started about half an hour prior to the arrival in the ER. Pain is radiating to the back. There is no pelvic pain. He denies any hip pain, back pain, knee pain. He denies any tingling, numbness, or paresthesia. He denies any history of chest pain or palpitation. He has headache and dizziness. He denies any polyuria, polydipsia, or polyphagia. Denies any hematuria or pyuria. ALLERGIES: UNKNOWN ALLERGIES. CURRENT MEDICATIONS: Lov[place]. SOCIAL HISTORY: He is a nonsmoker, non-EtOH user. He uses marijuana. FAMILY HISTORY: Noncontributory. PHYSICAL EXAMINATION: GENERAL: A middle-aged young male, in moderate to severe distress. VITAL SIGNS: Blood pressure 134/78, pulse 74, respiratory rate 20, temperature 98.9. SKIN: No rashes. No bruises. No purpura. No petechia. No ecchymosis. HEENT: Atraumatic, normocephalic. Negative pallor. Negative jaundice. Extraocular movements are intact. NECK: Supple. No JVD. No lymph nodes. No thyromegaly. No carotid bruits. CHEST WALL: Bilateral symmetrical expansion. LUNGS: Clear. No rales. No rhonchi. CARDIOVASCULAR SYSTEM: PMI not localized. S1 and S2 regular. ABDOMEN: Epigastric tenderness. Bowel sounds are positive. No masses. There is guarding and rigidity. RECTAL: No masses. No bleeding. EXTREMITIES: No clubbing, cyanosis, or edema. CENTRAL NERVOUS SYSTEM: Awake, alert, and oriented x3. Cranial nerves II through XII are normal. Power 5/5 x4. Plantar's are downgoing. ASSESSMENT: 1. Acute pancreatitis due to hypertriglyceridemia. 2. Marijuana use. 3. hypertension due to pain. 4. Hypertriglyceridemia. PLAN: Admit. Detailed orders written. Seen and examined. Hermes Faith MD
--- NOTE | 2018-07-24 07:46 | PN ---
DATE: 07/24/2018 LOCATION: 369, bed A. HISTORY OF PRESENT ILLNESS: This is a 52-year-old male, seen and examined in rounds early in the morning without any significant clinical changes, but intermittent period of abdominal pain and discomfort, was reported before more than one episode of hematemesis of trace of fresh blood with his vomit. No reported actual chest pain or palpitation. Today's lab results still pending, however, the patient reported to have excessive increase of his triglyceride to 1204 with cholesterol 280, amylase 403, and decreased lipase to 2844 which could be contributing his acute pancreatitis, was drug induced also. PHYSICAL EXAMINATION: GENERAL: A 52-year-old male, awake, alert, oriented. VITAL SIGNS: Afebrile with pulse of 82, respiratory rate 20-22, blood pressure 130/76. HEENT: Showed pale, dry oral mucous membrane. Nonicteric sclerae. LUNGS: Few scattered crepitation. Decreased air entry at bases. HEART: Positive S1 and S2. ABDOMEN: Soft with mid epigastric, mid abdominal line tenderness. No mass or organomegaly. No rebound tenderness or guarding. EXTREMITIES: Without significant clubbing, edema, or cyanosis. NEUROLOGIC: No reported new neurological deficits, sensory or motor. IMPRESSION: 1. Acute pancreatitis, recurrent, alcohol induced versus hyperlipidemia induced. 2. Re-exacerbation of peptic ulcer disease with more than one episode of nausea and vomiting of trace of fresh blood as per patient history. 3. Recent history of hyperglycemia. 4. To rule out possible gastric versus duodenal ulcer. SUGGESTIONS: 1. Agree with your plan. 2. Keep n.p.o. until serum lipase, amylase level are normal or near normal. 3. The patient for upper endoscopy at a.m. 4. Endocrinology consultation with control of his excessive hyperlipidemia. Further recommendation to follow. Harjinder Seo MD
[2018-07-24 09:37] LABS: BASO # 0.1 K/uL (0.0-0.2); BASO % 0.8 % (0.0-2.0); EOS # 0.5 K/uL (0.0-0.7); EOS % 5.8 % (0.0-4.0); LYMPH # 1.5 K/uL (1.0-4.3); LYMPH % 18.1 % (20.0-40.0); MEAN CELL VOLUME 90.7 fL (80.0-94.0); MEAN CORPUSCULAR HEMOGLOBIN 31.4 pg (27.0-31.0); MEAN CORPUSCULAR HGB CONC 34.7 g/dL (33.0-37.0); MEAN PLATELET VOLUME 7.5 fL (7.2-11.7); MONO # 0.5 K/uL (0.0-0.8); MONO % 5.3 % (0.0-10.0); NRBC % 0.1 % (0.0-2.0); RBC 4.04 Mil/uL (4.40-5.90); WHITE BLOOD COUNT 8.5 K/uL (4.8-10.8)
[2018-07-24 09:46] LABS: HEMOGLOBIN 12.7 g/dL (12.0-18.0)
[2018-07-24 10:26] LABS: ALB/GLOB RATIO 1.2 (1.0-2.1); ALBUMIN 3.8 g/dL (3.5-5.0); ALT/SGPT 20 U/L (21-72); AMYLASE 171 U/L (30-110); AST/SGOT 20 U/L (17-59); BLOOD UREA NITROGEN 12 mg/dL (9-20); CALCIUM 8.5 mg/dl (8.6-10.4); GFR NON-AFRICAN AMERICAN > 60; LIPASE 628 U/L (23-300)
[2018-07-24] MEDS: Sodium Chloride 0.9% 1,000 ML IV ONE (17:33)
--- NOTE | 2018-07-24 20:51 | CP.PCM.PN ---
Subjective - Subjective Subjective: dictated Objective - Vital Signs/Intake and Output Vital Signs (last 24 hours): Temp Pulse Resp BP Pulse Ox 98.0 F 88 20 153/71 H 96 07/24/18 16:14 07/24/18 16:14 07/24/18 16:14 07/24/18 16:14 07/24/18 16:14 Intake and Output: 07/24/18 07/25/18 18:59 06:59 Intake Total 1200 Balance 1200 - Medications Medications: Current Medications Metronidazole (Flagyl) 500 mg in 100 mls @ 100 mls/hr IVPB Q8H ELYSSA; Protocol Last Admin: 07/24/18 17:26 Dose: 100 mls/hr Potassium Chloride (Potassium Chloride 20 Meq/100 Ml) 20 meq in 100 mls @ 50 mls/hr IVPB ONCE ONE Stop: 07/24/18 22:49 Influenza Virus Vaccine (Flucelvax Quad 2918-1612 Syr) 60 mcg IM .ONCE ONE Stop: 07/25/18 10:01 Metoclopramide HCl (Reglan) 10 mg IVP Q6H ELYSSA Last Admin: 07/24/18 17:25 Dose: 10 mg Pantoprazole Sodium (Protonix Inj) 40 mg IVP Q12H ELYSSA Last Admin: 07/24/18 17:25 Dose: 40 mg Pneumococcal Polyvalent Vaccine (Pneumovax 23 Vaccine) 0.5 ml IM .ONCE ONE Stop: 07/25/18 10:01 - Labs Labs: 07/24/18 09:31 07/24/18 09:31 PT 12.1 SECONDS (9.7-12.2) 07/23/18 11:09 INR 1.1 07/23/18 11:09 APTT 32 SECONDS (21-34) 07/23/18 11:09
[2018-07-24] MEDS: Omega-3-Acid Ethyl Esters 1 GM Cap PO SCH (21:41)
--- NOTE | 2018-07-25 00:46 | PN ---
DATE: 07/24/2018 SUBJECTIVE: The patient has decreased abdominal pain, decreased amylase and lipase. No nausea or vomiting. No fever. PHYSICAL EXAMINATION: VITAL SIGNS: Blood pressure 153/71, pulse 88, respiratory rate 20, and temperature 98. LUNGS: Clear. CARDIOVASCULAR SYSTEM: S1, S2 regular. ABDOMEN: Epigastric tenderness. ASSESSMENT: 1. Pancreatitis due to hypertriglyceridemia. 2. Hypokalemia. 3. Hypertriglyceridemia. PLAN: Clear liquid diet proceed as tolerated. Monitor the patient. Hermes Faith MD
[2018-07-25] MEDS: metroNIDAZOLE IV 500 mg/100 ml 500 MG/100 ML BAG IVPB SCH ×3 (02:31→17:24)
[2018-07-25 07:55] LABS: BASO % 0.6 % (0.0-2.0); EOS # 0.7 K/uL (0.0-0.7); EOS % 9.6 % (0.0-4.0); HEMOGLOBIN 12.8 g/dL (12.0-18.0); LYMPH # 1.6 K/uL (1.0-4.3); LYMPH % 22.4 % (20.0-40.0); MEAN CELL VOLUME 90.7 fL (80.0-94.0); MEAN CORPUSCULAR HEMOGLOBIN 31.6 pg (27.0-31.0); MEAN CORPUSCULAR HGB CONC 34.9 g/dL (33.0-37.0); MEAN PLATELET VOLUME 7.4 fL (7.2-11.7); MONO # 0.6 K/uL (0.0-0.8); MONO % 8.1 % (0.0-10.0); NEUT # 4.3 K/uL (1.8-7.0); NEUT % 59.3 % (50.0-75.0); RBC 4.05 Mil/uL (4.40-5.90); RED CELL DISTRIBUTION WIDTH 13.3 % (11.5-14.5); WHITE BLOOD COUNT 7.3 K/uL (4.8-10.8)
[2018-07-25 08:14] LABS: ALB/GLOB RATIO 1.3 (1.0-2.1); ALBUMIN 3.9 g/dL (3.5-5.0); ALT/SGPT 31 U/L (21-72); AST/SGOT 27 U/L (17-59); BLOOD UREA NITROGEN 10 mg/dL (9-20); CALCIUM 8.6 mg/dl (8.6-10.4); GFR NON-AFRICAN AMERICAN > 60
[2018-07-25] MEDS ORDERED: Sodium Chloride 0.9% 1,000 ML IV SCH ×2 (09:00→11:00)
--- NOTE | 2018-07-25 09:11 | CON ---
Date: 07/22/[address] Seo to Hermes Milan. I was called for GI consultation by the admitting MD. The patient is seen and fully examined on 07/22/2018 as requested by the admitting medical staff. The entire chart is reviewed including but not limited to the most recent lab and radiology study results, current and the previous medication list, current and the previous medical events. Case discussed with the staff at length at the time of the admission. HISTORY OF PRESENT ILLNESS: This is a 52-year-old male with a known history of heavy alcohol intake and the recurrent episodes of alcoholic pancreatitis, was readmitted through the emergency room with recurrent episodes of abdominal pain, nausea and vomiting with trace of fresh blood. The patient also indicated that he stopped drinking almost 10 years ago but no chest pain, chills or fever, significant shortness of breath. PAST MEDICAL HISTORY: Including, 1. Alcoholism, by history. 2. Recurrent pancreatitis. 3. Peptic ulcer disease. FAMILY HISTORY: Unknown. CURRENT MEDICATIONS: Post-admission medication list was reviewed. ALLERGIES TO MEDICATIONS: UNKNOWN. LABORATORY DATA: Post-admission lab result showed leukocytosis of 18.9 with CO2 content of 20 indicative of metabolic acidosis with blood glucose level of 142. Abdominal and pelvic CAT scan was performed, indicative of acute pancreatitis. PHYSICAL EXAMINATION: GENERAL: A 52-year-old male, awake, alert, oriented, complaining of abdominal pain. VITAL SIGNS: Afebrile with pulse of 98 with respiratory rate 20 to 22, blood pressure 170/106. HEENT: Showed pale dry oral mucoid membrane. Slightly icteric sclera bilaterally. LYMPH NODES: No lymphadenitis or lymphadenopathy. LUNGS: Few scattered crepitation. Decreased air entry at bases. HEART: Positive S1 and S2 with increased rate. ABDOMEN: Soft with mild generalized tenderness. No mass or organomegaly. No rebound tenderness or guarding. RECTAL: The patient refused. EXTREMITIES: Without significant edema, clubbing or cyanosis. NEUROLOGIC: No reported new neurological deficits, sensory or motor. No reported focal deficits. IMPRESSION: 1. Recurrent episodes of acute pancreatitis, most likely alcohol induced, as per history. 2. Rule out lipids-induced recurrent pancreatitis. 3. Re-exacerbation of peptic ulcer disease with hemoptysis of small amount of fresh blood by recent history, to rule out gastric versus duodenal ulcer. 4. Leukocytosis, most likely secondary to above. 5. An episodes of hyperglycemia, of unclear etiology. 6. Metabolic acidosis, secondary to above. SUGGESTIONS: 1. Agree with your plan. 2. Keep the patient n.p.o. until serum lipase is normal or near normal as the most recent lipase level reported to be apparently above of 3000. 3. Cancer markers including CEA and CA 19-9. 4. Flagyl IV. 5. Proton inhibitors IV. 6. Reglan IV. 7. Due to the patient's recent episodes of hematemesis of some fresh blood, upper endoscopy to be scheduled when he is more stable clinically. Thank you for letting me participate in your patient's case management. Further recommendation to follow. Harjinder Seo MD
[2018-07-25] MEDS ORDERED: Influenza Vaccine 60 mcg/0.5 mL SYR (4YR UP) IM ONE (10:00)
[2018-07-25] MEDS ORDERED: Pneumococcal 23-Valent Vaccine IM ONE (10:00)
[2018-07-25] MEDS: Omega-3-Acid Ethyl Esters 1 GM Cap PO SCH ×2 (10:33→17:23)
--- NOTE | 2018-07-25 13:03 | PN ---
DATE: 07/25/2018 LOCATION: 369, bed A. SUBJECTIVE: This is a 52-year-old male seen and examined in the rounds today, refusing EGD. With much less complaint of abdominal pain. The entire chart is reviewed and the most recent lab results showed normal CBC, normal PT and PTT, normal SMA 8 p.m. but yesterday lipase was 628, amylase 171. Today's lab results still pending. PHYSICAL EXAMINATION: GENERAL: A 52-year-old male, awake, alert and oriented. VITAL SIGNS: Afebrile with pulse of 64, respiratory rate 20-22, blood pressure 132/92. HEENT: Showed pale dry oral mucous membrane, mildly, nonicteric sclerae. LUNGS: Clear. Breathing sounds are present bilaterally. HEART: Positive S1 and S2. ABDOMEN: Soft with mild generalized tenderness. No mass or organomegaly. No rebound tenderness or guarding. EXTREMITIES: Without significant clubbing, cyanosis or edema. NEUROLOGIC: No reported new neurological deficits, sensory or motor. IMPRESSION: 1. Acute pancreatitis on top of chronic pancreatitis. 2. Re-exacerbation of peptic ulcer disease. 3. Recent history of hyperglycemia, improving gradually. SUGGESTIONS: 1. Agree with your plan. 2. Advance diet gradually again, keeping in mind the patient refused EGD today. Harjinder Seo MD
[2018-07-25 16:44] VITALS: BP 136/88; PULSE 64; TEMP 99.1; O2SAT 97
--- NOTE | 2018-07-25 17:28 | CP.PCM.PN ---
Subjective - Date & Time of Evaluation Date of Evaluation: 07/25/18 Time of Evaluation: 17:28 Objective - Vital Signs/Intake and Output Vital Signs (last 24 hours): Temp Pulse Resp BP Pulse Ox 99.1 F 64 20 136/88 97 07/25/18 16:43 07/25/18 16:43 07/25/18 16:43 07/25/18 16:43 07/25/18 16:43 Intake and Output: 07/25/18 07/25/18 06:59 18:59 Intake Total 1400 720 Balance 1400 720 - Medications Medications: Current Medications Metronidazole (Flagyl) 500 mg in 100 mls @ 100 mls/hr IVPB Q8H ELYSSA; Protocol Last Admin: 07/25/18 17:24 Dose: 100 mls/hr Sodium Chloride (Sodium Chloride 0.9%) 1,000 mls @ 60 mls/hr IV .[id number] ELYSSA Last Admin: 07/25/18 10:40 Dose: 60 mls/hr Metoclopramide HCl (Reglan) 10 mg IVP Q6H ELYSSA Last Admin: 07/25/18 17:23 Dose: 10 mg [id number] Ethyl Esters (Lovaza) 2 gm PO BID ELYSSA Last Admin: 07/25/18 17:23 Dose: 2 gm Pantoprazole Sodium (Protonix Inj) 40 mg IVP Q12H ELYSSA Last Admin: 07/25/18 17:23 Dose: 40 mg - Labs Labs: 07/25/18 07:46 07/25/18 07:46 PT 12.1 SECONDS (9.7-12.2) 07/23/18 11:09 INR 1.1 07/23/18 11:09 APTT 32 SECONDS (21-34) 07/23/18 11:09 Assessment and Plan - Assessment and Plan (Free Text) Assessment: FOLLOW UP WITH DR CANDELARIO IN HIS OFFICE ----CALL FOR APPOINTMENT CONTINUE HOME MEDICATION NEW PRESCRIPTION GIVEN LOVAZA 2 G PO BID ACTIVITY TOLERATED CALL DR CANDELARIO OR GO TO THE EMERGENCY ROOM IF SYMPTOM RETURN OR WORSENING
== END 2018-07-25 19:06 | disposition home or self-care (01) | DRG 204 ==
LOC: C.ER 10:08 → C.3T 15:20
PROVIDERS: ADMIT Internal Medicine; ATTEND Internal Medicine
DX: K85.80 Other acute pancreatitis without necrosis or infection (principal); E87.6 Hypokalemia; E87.2 Acidosis; E86.0 Dehydration; K92.0 Hematemesis; K86.1 Other chronic pancreatitis; K27.9 Peptic ulcer, site unspecified, unspecified as acute or chronic, without hemorrhage or perforation; I10 Essential (primary) hypertension; F12.90 Cannabis use, unspecified, uncomplicated; E78.5 Hyperlipidemia, unspecified; F10.10 Alcohol abuse, uncomplicated

== ENCOUNTER 2018-11-09 15:41 | Inpatient (IN) | payer MEDICAID ==
[2018-11-09] MEDS ORDERED: Sodium Chloride 0.9% 1,000 ML IV ONE (16:42)
--- NOTE | 2018-11-09 17:04 | C.PDOC ---
History Of Present Illness 53 y/o male,w/PMhx of chronic pancreatitis, presents to the ER complaining of epigastric abdominal pain which began in the morning today. Patient describes the pain as severe and he rates the pain 12/10. Patient reports that he has a ssociated nausea. He has not been able to eat or drink all day. He has not been able to tolerate water. He has history of multiple acute episodes and his last episode was in July 2018. He states that he has seen for these symptoms in the past and he prescribed him medications( unknown). He has not been evaluated by recently. Denies having fever,chills,vomiting, dysuria and hematuria. Time Seen by Provider: 11/09/18 16:23 Chief Complaint (Nursing): Abdominal Pain History Per: Patient History/Exam Limitations: no limitations Onset/Duration Of Symptoms: Hrs Current Symptoms Are (Timing): Still Present Severity: Severe Past Medical History Reviewed: Historical Data, Nursing Documentation, Vital Signs Vital Signs: Last Vital Signs Temp 98.7 F 11/09/18 16:11 Pulse Resp 53 H 11/09/18 16:11 BP 182/108 H 11/09/18 16:11 Pulse Ox 99 11/09/18 16:11 - Medical History PMH: Pancreatitis Denies: Chronic Kidney Disease Other Surgeries: Hx of surgeries Family History: States: No Known Family Hx - Social History Hx Tobacco Use: No Hx Alcohol Use: Yes Hx Substance Use: Yes (patient denies but as per lab record patient is postive) - Immunization History Hx Tetanus Toxoid Vaccination: No Hx Influenza Vaccination: No Hx Pneumococcal Vaccination: No Review Of Systems Except As Marked, All Systems Reviewed And Found Negative. Constitutional: Negative for: Fever, Chills Gastrointestinal: Positive for: Nausea, Abdominal Pain. Negative for: Vomiting Genitourinary: Negative for: Dysuria, Hematuria Physical Exam - Physical Exam Appears: Other (uncomfortable) Skin: Normal Color, Warm, Dry Head: Atraumatic, Normacephalic Eye(s): bilateral: Normal Inspection Nose: Normal Oral Mucosa: Moist Neck: Supple Cardiovascular: Rhythm Regular Respiratory: No Rales, No Rhonchi, No Wheezing Gastrointestinal/Abdominal: Bowel Sounds (very quiet bowel sounds), Soft, No Tenderness, Distention, No Guarding, No Rebound Neurological/Psych: Oriented x3, Normal Speech ED Course And Treatment - Laboratory Results Result Diagrams: 11/09/18 17:32 11/09/18 17:32 Lab Interpretation: Abnormal (WBC 23.1 with 90% neutrophils, lipase 9637, HCO3 17) O2 Sat by Pulse Oximetry: 99 (RA) Pulse Ox Interpretation: Normal Progress Note: Patient treated with morphine IVP. Reevaluation Time: 18:00 Reassessment Condition: Unchanged (Patient still c/o severe pain with nausea) - Physician Consult Information Time Consulting Physician Contacted: 18:45 Physician Contacted: Hermes Faith Outcome Of Conversation: He knows the patient well. He has a history of hypertriglyceridemia but is noncompliant with medication. Agrees to admit for pain management. Medical Decision Making Medical Decision Making: Plan: --Labs --IV Fluids --Morphine IV Disposition - Disposition Disposition: HOSPITALIZED Disposition Time: 18:46 Condition: FAIR - POA Present On Arrival: None - Clinical Impression Clinical Impression: Pancreatitis, acute - Scribe Statement The provider has reviewed the documentation as recorded by the [place] Provider Attestation: All medical record entries made by the Mir[facility] were at my direction and personally dictated by me. I have reviewed the chart and agree that the record accurately reflects my personal performance of the history, physical exam, medical decision making, and the department course for this patient. I have also personally directed, reviewed, and agree with the discharge instructions and disposition.
[2018-11-09 17:49] LABS: BASO # 0.1 K/uL (0.0-0.2); BASO % 0.4 % (0.0-2.0); EOS % 0.1 % (0.0-4.0); HEMOGLOBIN 16.9 g/dL (12.0-18.0); LYMPH % 4.5 % (20.0-40.0); MEAN CELL VOLUME 90.9 fL (80.0-94.0); MEAN CORPUSCULAR HEMOGLOBIN 31.9 pg (27.0-31.0); MEAN CORPUSCULAR HGB CONC 35.1 g/dL (33.0-37.0); MONO % 4.4 % (0.0-10.0); NEUT # 20.9 K/uL (1.8-7.0); NEUT % 90.6 % (50.0-75.0); PLATELET COUNT 350 K/uL (130-400); RED CELL DISTRIBUTION WIDTH 13.3 % (11.5-14.5); WHITE BLOOD COUNT 23.1 K/uL (4.8-10.8)
[2018-11-09 18:07] LABS: ALB/GLOB RATIO 1.2 (1.0-2.1); ALBUMIN 4.6 g/dL (3.5-5.0); ALT/SGPT 21 U/L (21-72); AST/SGOT 35 U/L (17-59); BLOOD UREA NITROGEN 16 mg/dL (9-20); CALCIUM 8.8 mg/dl (8.6-10.4); GFR NON-AFRICAN AMERICAN > 60
[2018-11-09 18:34] LABS: LIPASE 9637 U/L (23-300)
[2018-11-09 19:16] LABS: BANDS 10 % (0-2); LYMPHOCYTE 1 % (20-40); MICROCYTOSIS SLIGHT; MONOCYTE 4 % (0-10); NEUTROPHIL 85 % (50-75); PLATELET ESTIMATE NORMAL (NORMAL); TOTAL CELLS COUNTED 100
[2018-11-09 19:17] LABS: ROULEAUX FORMATION SLIGHT
[2018-11-09 20:27] VITALS: RESP 20
[2018-11-09] MEDS: Dextrose 5%/0.45% NS 1,000 ML IV SCH (21:32)
--- NOTE | 2018-11-09 22:20 | CP.PCM.HP ---
Present on Admission - Present on Admission Any Indicators Present on Admission: No Past Patient History - Infectious Disease Hx of Infectious Diseases: None - Past Medical History & Family History Past Medical History?: Yes - Past Social History Smoking Status: Never Smoked - CARDIAC Hx Cardiac Disorders: No - PULMONARY Hx Respiratory Disorders: No - NEUROLOGICAL Hx Neurological Disorder: No - HEENT Hx HEENT Problems: No - RENAL Hx Chronic Kidney Disease: No - ENDOCRINE/METABOLIC Hx Endocrine Disorders: No - HEMATOLOGICAL/ONCOLOGICAL Hx Blood Disorders: No - INTEGUMENTARY Hx Dermatological Problems: No - MUSCULOSKELETAL/RHEUMATOLOGICAL Hx Falls: No - GASTROINTESTINAL Hx Pancreatitis: Yes - GENITOURINARY/GYNECOLOGICAL Hx Genitourinary Disorders: No - PSYCHIATRIC Hx Substance Use: Yes (patient denies but as per lab record patient is postive) - SURGICAL HISTORY Hx Surgeries: Yes - ANESTHESIA Hx Anesthesia: Yes Hx Anesthesia Reactions: No (not sure) Hx Malignant Hyperthermia: No Meds Allergies/Adverse Reactions: Allergies Allergy/AdvReac Type Severity Reaction Status Date / Time No Known Allergies Allergy Verified 11/09/18 16:13 Results - Vital Signs Recent Vital Signs: Last Vital Signs Temp 97.3 F L 11/09/18 20:26 Pulse 62 11/09/18 22:16 Resp 20 11/09/18 20:26 BP 157/91 H 11/09/18 22:16 Pulse Ox 97 11/09/18 20:26 - Labs Result Diagrams: 11/09/18 17:32 11/09/18 17:32 Labs: Laboratory Results - last 24 hr 11/09/18 11/09/18 17:32 17:32 WBC 23.1 H D RBC 5.30 Hgb 16.9 D Hct 48.2 MCV 90.9 MCH 31.9 H MCHC 35.1 RDW 13.3 Plt Count 350 MPV 8.0 Neut % (Auto) 90.6 H Lymph % (Auto) 4.5 L Mchenry % (Auto) 4.4 Eos % (Auto) 0.1 Baso % (Auto) 0.4 Neut # (Auto) 20.9 H Lymph # (Auto) 1.0 Mchenry # (Auto) 1.0 H Eos # (Auto) 0.0 Baso # (Auto) 0.1 Neutrophils % (Manual) 85 H Band Neutrophils % 10 H Lymphocytes % (Manual) 1 L Monocytes % (Manual) 4 Platelet Estimate Normal Microcytosis (manual) Slight Rouleaux Slight Sodium 132 Potassium 4.1 Chloride 105 Carbon Dioxide 17 L Anion Gap 14 BUN 16 Creatinine 0.9 Est GFR ( Amer) > 60 Est GFR (Non-Af Amer) > 60 Random Glucose 135 H D Calcium 8.8 Total Bilirubin 0.8 AST 35 ALT 21 D Alkaline Phosphatase 132 H D Total Protein 8.6 H Albumin 4.6 Globulin 4.0 H Albumin/Globulin Ratio 1.2 Lipase 9637 H
[2018-11-10] MEDS: HYDROmorphone 0.5 mg/0.5 ml ISec IVP PRN ×5 (00:20→22:14)
[2018-11-10] MEDS: Dextrose 5%/0.45% NS 1,000 ML IV SCH ×3 (05:37→18:32)
--- NOTE | 2018-11-10 08:22 | US ---
Date of service: 11/10/2018 HISTORY: pancreatitis COMPARISON: CT abdomen and pelvic report 07/22/2018 abdominal limited ultrasound 12/07/2017 TECHNIQUE: Sonographic evaluation of the abdomen. FINDINGS: LIVER: Measures 17.7 cm. Diffuse increased echogenicity of the liver parenchyma. A triangular area of relative hypo echogenicity-slightly heterogeneous in appearance in the right hepatic lobe measuring approximately 2.5 by 3.1 cm on axial series 1, image 32. Etiology uncertain. Not apparent on 07/22/2018 CT. Not a appreciated on abdominal limited ultrasound study 12/07/2017. No intrahepatic bile duct dilatation. GALLBLADDER: Unremarkable. No gallstones. COMMON BILE DUCT: Measures 4.8 mm. No stones. No dilatation. PANCREAS: Not visualized prior CT reference of enlarged swollen appearing right pancreatic head with peripancreatic inflammatory changes-imaging findings compatible within prior acute pancreatitis. Bowel gas obscures current visualization here. RIGHT KIDNEY: Measures 9.6 x 4.1 x 4.6 an exophytic cyst off the lower pole approximately 1.6 cm. This has been previously noted. Normal echogenicity. No calculus, solid-appearing mass, or hydronephrosis. LEFT KIDNEY: Measures 10.7 x 5.6 x 4.7cm. Normal echogenicity. No calculus, solid-appearing, or hydronephrosis. SPLEEN: Mid-lower pole present measuring 1.0 x 0.8 x 1.3 cm has been noted previously. Normal in size and contour. No mass. AORTA: No aneurysmal dilatation. In portions visualize IVC: Unremarkable. In portions visualized. OTHER FINDINGS: Trace perihepatic/right perinephric fluid. IMPRESSION: Nonvisualized pancreas-prominent obscuring bowel gas present Hepatomegaly with hepatic steatosis. Interval triangular heterogeneous/mildly hypo echogenic focus right hepatic lobe not seen as such on prior studies. Fatty sparing 1 consideration. However other mass is not excluded. Consider MRI of the liver without with contrast enhancement for clarification. This can also dressed the pancreas. No gallbladder pathology seen. No dilated ducts. Bilateral renal cysts .
[2018-11-10] MEDS: Enoxaparin 40 mg Syringe SC SCH (09:59)
--- NOTE | 2018-11-10 11:38 | HP ---
CHIEF COMPLAINT: Upper abdominal pain. HISTORY OF PRESENT ILLNESS: This is a 53-year-old male well-known to me with history of hypertriglyceridemia with recurrent [id number]-[id number] pancreatitis who is noncompliant with his diet, medication, and followup. He came in because of upper abdominal pain, intense about 10/10 associated with nausea, no vomiting. The patient denies any alcohol use. He denies any history of gallbladder problem. He denies any fever, chills, or rigors. The patient was not able to tolerate any liquid or food since yesterday. Along with that, he has generalized weakness. Pain is radiating to the back. The patient denies any hemoptysis, hematemesis, melena, hematochezia. He denies any history of polyuria, polydipsia, polyphagia. He denies any history of cough, sore throat, running nose. There is no history of any abdominal trauma, fall, or loss of consciousness. There is no history of seizure-like activity. He denies any tingling, numbness, paresthesias. He denies any knee pain, hip pain, leg pain. SOCIAL HISTORY: He denies smoking. He denies drinks. FAMILY HISTORY: Noted for pancreatitis. CURRENT MEDICATIONS: Lovaza. PHYSICAL EXAMINATION: GENERAL: A middle-aged male in distress with abdominal pain. VITAL SIGNS: Blood pressure 182/108, pulse 53, respiratory rate 18, temperature 98.7. SKIN: Senile turgor. No bruises. No purpura. No petechiae. HEENT: Atraumatic, normocephalic. Negative pallor. Negative jaundice. Extraocular movements are intact. NECK: Supple. No JVD. CHEST WALL: Bilateral symmetrical expansion. LUNGS: Clear. No rales. No rhonchi. CARDIOVASCULAR SYSTEM: S1 and S2, regular. ABDOMEN: Soft, epigastric tenderness. No guarding. No rebound. No masses. Bowel sounds are present. RECTAL: No masses. No bleeding. EXTREMITIES: No clubbing, cyanosis, or edema. CENTRAL NERVOUS SYSTEM: Awake, alert, oriented x3. ASSESSMENT: 1. Xlzqn-ij-jdhgnla recurrent pancreatitis. 2. Dehydration. 3. Hypertension due to pain. 4. Hypertriglyceridemia. PLAN: N.p.o. IV fluids. GI consult. Monitor the patient. Hermes Faith MD [facility] # [id number]
--- NOTE | 2018-11-10 13:01 | PN ---
DATE: 11/10/2018 LOCATION: 368, bed A. SUBJECTIVE: This is a 53-year-old male seen initially for GI consultation on 11/09/2018, reexamined again today with less abdominal pain and one episode of vomiting with persistent dyspepsia. The entire chart is reviewed, including but not limited to the most recent lab and radiology study results, current and the previous medication list. Today, his lipase level is reported to be down to 5157, but the patient still has elevated blood glucose level with leukocytosis as per yesterday. I ordered abdominal ultrasound, which was done earlier this morning, report is seen. An MRI is to be ordered. No dilated duct is seen. PHYSICAL EXAMINATION: GENERAL: A 53-year-old male appeared to be awake, alert, oriented. VITAL SIGNS: Afebrile with pulse of 96, respiratory rate 20 to 22, blood pressure 130/86. HEENT: Pale, dry oral mucous membrane, nonicteric sclerae. LUNGS: Few scattered crepitation. Decreased air entry at bases. HEART: Positive S1 and S2. ABDOMEN: Soft with mild generalized tenderness. No mass or organomegaly. No rebound tenderness or guarding. EXTREMITIES: Without significant neurological deficit, sensory or motor. NEUROLOGIC: No clubbing, cyanosis, or edema reported. IMPRESSION: 1. Acute pancreatitis. 2. Re-exacerbation of peptic ulcer disease. 3. Abnormal ultrasound of the abdomen. The patient will need MRI. 4. Psychiatric evaluation for possible substance abuse. RECOMMENDATION: The patient will need a repeat lipase and amylase level as well as endoscopic evaluation of the upper gastrointestinal tract only when he is more stable clinically. Further recommendation to follow and rehydration as well as H2 blockers IV to be considered. Harjinder Seo MD
[2018-11-10 14:14] LABS: BASO % 0.2 % (0.0-2.0); HEMOGLOBIN 19.1 g/dL (12.0-18.0); LYMPH # 1.2 K/uL (1.0-4.3); LYMPH % 11.1 % (20.0-40.0); MEAN CELL VOLUME 91.5 fL (80.0-94.0); MEAN CORPUSCULAR HEMOGLOBIN 32.4 pg (27.0-31.0); MEAN CORPUSCULAR HGB CONC 35.4 g/dL (33.0-37.0); MEAN PLATELET VOLUME 8.4 fL (7.2-11.7); MONO # 0.6 K/uL (0.0-0.8); MONO % 5.4 % (0.0-10.0); NEUT % 83.3 % (50.0-75.0); NRBC % 0.5 % (0.0-2.0); RBC 5.91 Mil/uL (4.40-5.90); RED CELL DISTRIBUTION WIDTH 13.4 % (11.5-14.5)
[2018-11-10 14:24] LABS: WHITE BLOOD COUNT 10.8 K/uL (4.8-10.8)
[2018-11-10 14:30] LABS: ALB/GLOB RATIO 1.2 (1.0-2.1); ALBUMIN 4.1 g/dL (3.5-5.0); ALT/SGPT 23 U/L (21-72); AST/SGOT 37 U/L (17-59); BLOOD UREA NITROGEN 28 mg/dL (9-20); CALCIUM 7.6 mg/dl (8.6-10.4); GFR NON-AFRICAN AMERICAN 58
[2018-11-10 14:36] LABS: LIPASE 2792 U/L (23-300)
--- NOTE | 2018-11-10 22:36 | CP.PCM.PN ---
Subjective - Date & Time of Evaluation Date of Evaluation: 11/10/18 Time of Evaluation: 07:00 - Subjective Subjective: dict Objective - Vital Signs/Intake and Output Vital Signs (last 24 hours): Temp Pulse Resp BP Pulse Ox 98 F 101 H 20 118/85 95 11/10/18 16:00 11/10/18 16:00 11/10/18 16:00 11/10/18 16:00 11/10/18 16:00 Intake and Output: 11/10/18 11/11/18 18:59 06:59 Intake Total 2400 Balance 2400 - Medications Medications: Current Medications Enoxaparin Sodium (Lovenox) 40 mg SC DAILY [facility] Last Admin: 11/10/18 09:59 Dose: 40 mg Hydromorphone HCl (Dilaudid) 2 mg IVP Q4H PRN PRN Reason: Pain, severe (8-10) Last Admin: 11/10/18 22:14 Dose: 2 mg Dextrose/Sodium Chloride (Dextrose 5%/0.45% Ns 1000 Ml) 1,000 mls @ 100 mls/hr IV .Q10H ELYSSA Last Admin: 11/10/18 18:32 Dose: 100 mls/hr Pantoprazole Sodium (Protonix Inj) 40 mg IVP DAILY [facility] Last Admin: 11/10/18 09:59 Dose: 40 mg Pneumococcal Polyvalent Vaccine (Pneumovax 23 Vaccine) 0.5 ml IM .ONCE ONE Stop: 11/11/18 10:01 - Labs Labs: 11/10/18 14:01 11/10/18 14:01
[2018-11-11] MEDS: Dextrose 5%/0.45% NS 1,000 ML IV SCH ×4 (01:00→20:59)
--- NOTE | 2018-11-11 01:20 | PN ---
DATE: 11/10/2018 SUBJECTIVE: The patient has decreased abdominal pain, decreased nausea, vomiting. He is on pain medications. No fever. No chills. No diarrhea. PHYSICAL EXAMINATION: VITAL SIGNS: Blood pressure 124/89, pulse 100, respiratory rate 20, temperature 98.1. LUNGS: Clear. CARDIOVASCULAR SYSTEM: S1, S2, regular. ABDOMEN: Positive epigastric tenderness. ASSESSMENT: 1. Acute pancreatitis due to hypertriglyceridemia. 2. Hypertriglyceridemia. PLAN: Continue n.p.o. IV fluids. Repeat labs. We will start diet in a.m. Hermes Faith MD
[2018-11-11 08:15] LABS: AMYLASE 340 U/L (30-110); LIPASE 1322 U/L (23-300)
--- NOTE | 2018-11-11 09:51 | PN ---
DATE: 11/11/2018 LOCATION: 368, bed A. SUBJECTIVE: This 53-year-old male seen and examined early in rounds with intermittent periods of abdominal pain, on pain medication. No reported vomiting but mild dyspepsia with nausea on and off. The entire chart is reviewed including the most recent lab results with today's lab results of amylase 340 with decreased lipase to 1322 but normal cancer markers. The patient also reported to have elevated total bilirubin to 1.6 before but normal rest of the liver function tests with increased blood glucose level, increased BUN, but normal creatinine. Most recently done abdominal ultrasound as directed by myself. Report is seen. MRCP with and without IV contrast should be considered. PHYSICAL EXAMINATION: GENERAL: A 53-year-old male. VITAL SIGNS: Temperature of 99.5, heart rate 96, respiratory rate 20 to 22, blood pressure 130/82. HEENT: Showed pale, dry oral mucous membrane, slightly icteric sclerae bilaterally. ABDOMEN: Soft. Bowel sounds are present with mild generalized tenderness. No mass or organomegaly. No rebound tenderness or guarding but midepigastric tenderness as well as midabdominal line tenderness. Extremities: Without edema, clubbing or cyanosis. NEUROLOGIC: No reported new neurological deficits, sensory or motor. IMPRESSION: 1. Acute pancreatitis. 2. Re-exacerbation of peptic ulcer disease. 3. Abnormal ultrasound of the abdomen. 4. Possible substance abuse by history for which psychiatric evaluation is recommended. SUGGESTIONS: 1. Agree with your plan. 2. MRCP. 3. Keep n.p.o. until lipase and amylase is normal. However, if his midepigastric pain persisted, then upper endoscopy to be considered. Otherwise, close observation with peripheral hyperalimentation to continue. Harjinder Seo MD
[2018-11-11] MEDS: Enoxaparin 40 mg Syringe SC SCH (09:56)
[2018-11-11] MEDS ORDERED: Pneumococcal 23-Valent Vaccine IM ONE (10:00)
--- NOTE | 2018-11-11 22:59 | CP.PCM.PN ---
Subjective - Date & Time of Evaluation Date of Evaluation: 11/11/18 Time of Evaluation: 17:00 - Subjective Subjective: dict Objective - Vital Signs/Intake and Output Vital Signs (last 24 hours): Temp Pulse Resp BP Pulse Ox 98.4 F 103 H 20 133/90 93 L 11/11/18 16:00 11/11/18 16:00 11/11/18 16:00 11/11/18 16:00 11/11/18 16:00 Intake and Output: 11/11/18 11/12/18 18:59 06:59 Intake Total 900 1000 Balance 900 1000 - Medications Medications: Current Medications Enoxaparin Sodium (Lovenox) 40 mg SC DAILY [facility] Last Admin: 11/11/18 09:56 Dose: Not Given Hydromorphone HCl (Dilaudid) 2 mg IVP Q4H PRN PRN Reason: Pain, severe (8-10) Last Admin: 11/11/18 21:47 Dose: 2 mg Dextrose/Sodium Chloride (Dextrose 5%/0.45% Ns 1000 Ml) 1,000 mls @ 100 mls/hr IV .Q10H [facility] Last Admin: 11/11/18 20:59 Dose: Not Given Pantoprazole Sodium (Protonix Inj) 40 mg IVP DAILY [facility] Last Admin: 11/11/18 09:55 Dose: 40 mg - Labs Labs: 11/10/18 14:01 11/10/18 14:01
[2018-11-12] MEDS: Dextrose 5%/0.45% NS 1,000 ML IV SCH ×5 (00:27→19:40)
--- NOTE | 2018-11-12 02:52 | PN ---
DATE: 11/12/2018 SUBJECTIVE: The patient has decreased abdominal pain. No nausea or vomiting. He is on pain medications. No fever, no chills, no rigors. PHYSICAL EXAMINATION: VITAL SIGNS: Blood pressure 141/82, pulse 89, respiratory rate 20, and temperature 98.9. LUNGS: Clear. CARDIOVASCULAR SYSTEM: S1 and S2. Regular. ABDOMEN: Soft and nontender. Bowel sounds are positive. ASSESSMENT: 1. Pancreatitis. 2. Hypertriglyceridemia. PLAN: Start diet. Hermes Faith MD
[2018-11-12 07:26] LABS: ALB/GLOB RATIO 1.2 (1.0-2.1); ALBUMIN 3.9 g/dL (3.5-5.0); ALT/SGPT 9 U/L (21-72); AST/SGOT 35 U/L (17-59); BLOOD UREA NITROGEN 13 mg/dL (9-20); CALCIUM 8.7 mg/dl (8.6-10.4); GFR NON-AFRICAN AMERICAN > 60; LIPASE 459 U/L (23-300)
[2018-11-12 07:49] LABS: BASO % 0.2 % (0.0-2.0); EOS # 0.2 K/uL (0.0-0.7); EOS % 2.3 % (0.0-4.0); LYMPH # 1.4 K/uL (1.0-4.3); LYMPH % 13.1 % (20.0-40.0); MEAN CELL VOLUME 91.3 fL (80.0-94.0); MEAN CORPUSCULAR HEMOGLOBIN 31.6 pg (27.0-31.0); MEAN CORPUSCULAR HGB CONC 34.6 g/dL (33.0-37.0); MEAN PLATELET VOLUME 8.1 fL (7.2-11.7); MONO # 0.8 K/uL (0.0-0.8); MONO % 7.7 % (0.0-10.0); NEUT # 8.2 K/uL (1.8-7.0); NEUT % 76.7 % (50.0-75.0); RBC 4.28 Mil/uL (4.40-5.90); RED CELL DISTRIBUTION WIDTH 13.3 % (11.5-14.5); WHITE BLOOD COUNT 10.7 K/uL (4.8-10.8)
[2018-11-12 08:04] LABS: HEMOGLOBIN 13.5 g/dL (12.0-18.0)
[2018-11-12] MEDS: Enoxaparin 40 mg Syringe SC SCH (09:37)
[2018-11-12] MEDS: Potassium & Sodium Phosphate PO SCH (10:08)
--- NOTE | 2018-11-12 10:56 | PN ---
DATE: 11/12/2018 LOCATION 368, bed A. SUBJECTIVE: This 53-year-old male seen and examined early in rounds without reported significant clinical changes with less abdominal pain, but nausea with dyspepsia. No vomiting and no evidence of active GI bleeding. No chest pain, palpitation or significant shortness of breath. The most recent lab results today show blood glucose level of 122 with low phosphorus of 1.6, mildly elevated total bilirubin 1.9 with lipase down to 459. PHYSICAL EXAMINATION: GENERAL: This is a 53-year-old male. VITAL SIGNS: Afebrile with pulse of 86, respiratory rate 20-22, blood pressure of 136/84. HEENT: Showed pale, dry oral mucous membrane. Nonicteric sclerae. LUNGS: Few scattered crepitation. Decreased air entry at bases. HEART: Positive S1 and S2. ABDOMEN: Soft. Bowel sounds are present. No mass or organomegaly. No rebound tenderness or guarding. EXTREMITIES: Without significant clubbing, cyanosis or edema. NEUROLOGIC: No reported new neurological deficits, sensory or motor. IMPRESSION: 1. Acute pancreatitis, improved clinically and biochemically 2. Exacerbation of peptic ulcer disease. 3. Reported history of substance abuse. SUGGESTIONS: 1. Continue current management. 2. Reevaluation of the official report of the ultrasound. The patient may need MRCP before DC home. 3. Further recommendation to follow. Harjinder Seo MD
--- NOTE | 2018-11-12 20:34 | CP.PCM.PN ---
Subjective - Date & Time of Evaluation Date of Evaluation: 11/12/18 Time of Evaluation: 08:40 - Subjective Subjective: dict Objective - Vital Signs/Intake and Output Vital Signs (last 24 hours): Temp Pulse Resp BP Pulse Ox 98.8 F 75 20 150/94 H 96 11/12/18 15:15 11/12/18 15:15 11/12/18 15:15 11/12/18 15:15 11/12/18 15:15 - Medications Medications: Current Medications Enoxaparin Sodium (Lovenox) 40 mg SC DAILY [facility] Last Admin: 11/12/18 09:37 Dose: Not Given Hydromorphone HCl (Dilaudid) 2 mg IVP Q4H PRN PRN Reason: Pain, severe (8-10) Last Admin: 11/12/18 13:34 Dose: 2 mg Pantoprazole Sodium (Protonix Inj) 40 mg IVP DAILY [facility] Last Admin: 11/12/18 09:37 Dose: 40 mg Potassium Phos/Sodium Phos (Neutra-Phos) 1 pkt PO DAILY [facility] Stop: 11/15/18 10:01 Last Admin: 11/12/18 10:08 Dose: 1 pkt - Labs Labs: 11/12/18 06:56 11/12/18 06:56
--- NOTE | 2018-11-13 01:47 | PN ---
DATE: 11/12/2018 SUBJECTIVE: The patient continues to have abdominal pain, nausea, and vomiting. The patient is on clear liquid diet. His amylase and lipase is coming down. He feels weak. He is afebrile. No shortness of breath, no cough, no sore throat. He denies any diarrhea. He denies any hematemesis, melena, hematochezia. PHYSICAL EXAMINATION: VITAL SIGNS: Blood pressure 150/94, pulse 75, respiratory rate 20, temperature 98.8. LUNGS: Clear. CARDIOVASCULAR SYSTEM: S1, S2. Regular. ABDOMEN: Epigastric tenderness. Bowel sounds are present. ASSESSMENT: 1. Acute pancreatitis. 2. Hypertriglyceridemia. PLAN: Continue pain medication, antiemetics, clear liquid diet, if needed n.p.o. Monitor the patient. Hermes Faith MD
--- NOTE | 2018-11-13 05:28 | CON ---
DATE: 11/09/[address] Seo to Dr. Hermes Faith. I was called for GI consultation by the admitting MD. The patient is seen and fully examined on 11/09/2018 at the request by the admitting medical staff. The entire chart is reviewed including, but not limited to the most recent lab and radiology study results, current and the previous medication lists, current and the previous medical events, allergy to medication list as well as all the valuable current and the previous medical records. Case discussed before and after immediately my physical examination with admitting staff on 11/09/2018. HISTORY OF PRESENT ILLNESS: This is a 53-year-old male with reported known history of chronic pancreatitis, was admitted to the hospital complaining of severe midepigastric pain, mid abdominal line pain, sharp in nature with nausea, dyspepsia, inability to eat for several times or drink prior to his admission. No reported active bleeding, active chest pain, palpitation, significant shortness of breath, chills or fever. PAST MEDICAL HISTORY: Including mainly: 1. Peptic ulcer disease. 2. Recurrent acute on top of chronic pancreatitis. FAMILY HISTORY: Unknown. SOCIAL HISTORY: Positive for alcohol intake with substance abuse before. CURRENT MEDICATIONS: Post-admission medication list reviewed. ALLERGIES TO MEDICATION: UNCLEAR. LABORATORY DATA: Initial blood workup post-admission showed white blood cells of 23.1 with increased hemoglobin and hematocrit, rectal bleed secondary to dehydration with blood glucose level 135. Serum lipase, amylase level was reported to be elevated with lipase of 9637. PHYSICAL EXAMINATION: GENERAL: A 53-year-old male appear to be somewhat awake, alert, afebrile. VITAL SIGNS: Blood pressure of 174/104, pulse of 62, respiratory rate 20-22. HEENT: Pale, dry oral mucous membranes mildly, nonicteric sclerae. LUNGS: Few scattered crepitation. Decreased air entry at bases. HEART: Positive S1 and S2. ABDOMEN: Soft with generalized tenderness but mainly in the midepigastric area. No mass or organomegaly. No rebound tenderness or guarding. NEUROLOGIC: No reported new focal deficits. IMPRESSION: 1. Recurrent acute pancreatitis with chronic pancreatitis. 2. Re-exacerbation of peptic ulcer disease. 3. An episode of hyperglycemia. SUGGESTION: 1. Agree with your plan. 2. Keep n.p.o. until serum lipase and amylase level normal or near normal. 3. Abdominal ultrasound. 4. Cancer markers including CA 19-9. 5. Peripheral hyperalimentation. Proton pump inhibitors IV. Flagyl IV due to the patient's leucocytosis. 6. Further recommendation to follow. Thank you for letting me participate in your patient's case management. I will follow up closely with you. Harjinder Seo MD
[2018-11-13] MEDS: Enoxaparin 40 mg Syringe SC SCH (10:01)
[2018-11-13] MEDS: Potassium & Sodium Phosphate PO SCH (10:01)
--- NOTE | 2018-11-13 10:52 | CP.PCM.PN ---
Subjective - Date & Time of Evaluation Date of Evaluation: 11/13/18 Time of Evaluation: 07:00 - Subjective Subjective: dict Objective - Vital Signs/Intake and Output Vital Signs (last 24 hours): Temp Pulse Resp BP Pulse Ox 98.8 F 66 20 149/88 97 11/13/18 08:00 11/13/18 08:00 11/13/18 08:00 11/12/18 23:49 11/13/18 08:00 Intake and Output: 11/13/18 11/13/18 06:59 18:59 Intake Total 1100 700 Output Total 950 Balance 150 700 - Medications Medications: Current Medications Enoxaparin Sodium (Lovenox) 40 mg SC DAILY [facility] Last Admin: 11/13/18 10:01 Dose: Not Given Hydromorphone HCl (Dilaudid) 2 mg IVP Q4H PRN PRN Reason: Pain, severe (8-10) Last Admin: 11/13/18 00:15 Dose: 2 mg Pantoprazole Sodium (Protonix Inj) 40 mg IVP DAILY [facility] Last Admin: 11/13/18 10:01 Dose: 40 mg Potassium Phos/Sodium Phos (Neutra-Phos) 1 pkt PO DAILY [facility] Stop: 11/15/18 10:01 Last Admin: 11/13/18 10:01 Dose: 1 pkt - Labs Labs: 11/12/18 06:56 11/12/18 06:56
--- NOTE | 2018-11-13 12:22 | PN ---
DATE: 11/13/2018 LOCATION: 368, bed A. SUBJECTIVE: This is a 53-year-old male, seen and examined in rounds with less complaint of abdominal pain, no reported active bleeding, nausea, vomiting or chest pain or palpitation. The patient somewhat tolerated oral intake well. The entire chart is reviewed including but not limited to the most recent lab and radiology study results and today's lab results still pending. The latest blood workup yesterday showed normal CBC. Blood glucose level 122, low phosphorus 1.6 but total bilirubin 1.9 with the latest lipase of 459 for which the patient was started on liquid diet, tolerating it well. PHYSICAL EXAMINATION: GENERAL: A 53-year-old male. VITAL SIGNS: Afebrile with pulse of 82, respiratory rate 20 to 22, blood pressure 144/86. HEENT: Showed pale, dry oral mucous membrane mildly, slightly icteric sclerae. LUNGS: Few scattered crepitation. Decreased air entry at bases. HEART: Positive S1 and S2. ABDOMEN: Soft with mild generalized tenderness. No mass or organomegaly, rebound tenderness or guarding. EXTREMITIES: Without significant edema, clubbing or cyanosis. NEUROLOGIC: No reported new neurological deficit, sensory or motor. IMPRESSION: 1. Recurrent acute pancreatitis on top of chronic pancreatitis. 2. Re-exacerbation of peptic ulcer disease. 3. Reported substance abuse. SUGGESTIONS: 1. Continue current management. 2. The patient may need MRCP. 3. Repeat serum lipase, amylase level at a.m. If it is normal or near normal, then advance diet to soft bland diet, no citrus, 2 g salt. 4. Correct an underlying electrolyte imbalance. 5. Further recommendation to follow. Harjinder Seo MD
[2018-11-13] MEDS: Dextrose 5%/0.45% NS 1,000 ML IV SCH (20:41)
--- NOTE | 2018-11-14 04:11 | PN ---
DATE: 11/13/2018 SUBJECTIVE: The patient has decreased nausea and vomiting. He is still on liquid diet. No fever. No chills. No shortness of breath. PHYSICAL EXAMINATION: VITAL SIGNS: Blood pressure is 130/70, pulse 80, respiratory rate 16, and temperature 99. LUNGS: Clear. CARDIOVASCULAR SYSTEM: S1 and S2. Regular. ABDOMEN: Soft. ASSESSMENT: 1. Recurrent pancreatitis. 2. Hypertriglyceridemia. PLAN: Medical management. Monitor the patient. Hermes Faith MD
[2018-11-14] MEDS: Dextrose 5%/0.45% NS 1,000 ML IV SCH (05:49)
[2018-11-14 08:40] LABS: AMYLASE 130 U/L (30-110); LIPASE 569 U/L (23-300)
[2018-11-14] MEDS: Potassium & Sodium Phosphate PO SCH (09:36)
[2018-11-14] MEDS: Enoxaparin 40 mg Syringe SC SCH (09:36)
--- NOTE | 2018-11-14 12:01 | PN ---
DATE: 11/14/2018 LOCATION: 368, bed A. SUBJECTIVE: This is a 53-year-old male, seen and examined in rounds with reported less abdominal pain without any reported active GI bleeding, chest pain, palpitation or significant increase of shortness of breath. The patient somewhat tolerated oral intake well. The entire chart is reviewed including the most recent lab and radiology study results and today's amylase went down to 130, lipase 569 post oral intake. The rest of the lab results still pending. PHYSICAL EXAMINATION: GENERAL: A 53-year-old male awake, alert, oriented. VITAL SIGNS: Afebrile with pulse of 62, respiratory rate 20 to 22, blood pressure of 156/92. HEENT: Showed pale, dry oral mucous membrane. Nonicteric sclerae. LUNGS: Few scattered crepitation. Decreased air entry at bases. HEART: Positive S1 and S2. ABDOMEN: Soft. Bowel sounds are present with mild generalized tenderness. No mass or organomegaly. No rebound tenderness or guarding. EXTREMITIES: Without significant clubbing, cyanosis or edema. NEUROLOGIC: No reported new neurological deficits, sensory or motor. IMPRESSION: 1. Acute pancreatitis. 2. Re-exacerbation of peptic ulcer disease. 3. Reported substance abuse. SUGGESTIONS: 1. Continue current management. 2. Repeat lipase, amylase level at a.m. 3. Advance diet only when serum lipase and amylase level are normal or near normal. 4. Psychiatric evaluation. 5. Further recommendation to follow. Harjinder Seo MD
[2018-11-14 16:21] VITALS: BP 154/90; PULSE 60; TEMP 98.3; O2SAT 95
--- NOTE | 2018-11-14 20:22 | CP.PCM.DIS ---
Provider - Provider Date of Admission: 11/10/18 22:35 Attending physician: Hermes Faith MD Consults: 11/09/18 18:55 Gastroenterology Consult Stat Comment: Consulting Provider: Harjinder Castellano Consulting Physician: Harjinder Castellano Reason for Consult: pancreatitis Time Spent in preparation of Discharge (in minutes): 30 Hospital Course - Lab Results Lab Results: Most Recent Lab Values WBC 10.7 K/uL (4.8-10.8) 11/12/18 06:56 RBC 4.28 Mil/uL (4.40-5.90) L 11/12/18 06:56 Hgb 13.5 g/dL (12.0-18.0) D 11/12/18 06:56 Hct 39.1 % (35.0-51.0) 11/12/18 06:56 MCV 91.3 fL (80.0-94.0) 11/12/18 06:56 MCH 31.6 pg (27.0-31.0) H 11/12/18 06:56 MCHC 34.6 g/dL (33.0-37.0) 11/12/18 06:56 RDW 13.3 % (11.5-14.5) 11/12/18 06:56 Plt Count 255 K/uL (130-400) D 11/12/18 06:56 MPV 8.1 fL (7.2-11.7) 11/12/18 06:56 Neut % (Auto) 76.7 % (50.0-75.0) H 11/12/18 06:56 Lymph % (Auto) 13.1 % (20.0-40.0) L 11/12/18 06:56 Hudspeth % (Auto) 7.7 % (0.0-10.0) 11/12/18 06:56 Eos % (Auto) 2.3 % (0.0-4.0) 11/12/18 06:56 Baso % (Auto) 0.2 % (0.0-2.0) 11/12/18 06:56 Neut # (Auto) 8.2 K/uL (1.8-7.0) H 11/12/18 06:56 Lymph # (Auto) 1.4 K/uL (1.0-4.3) 11/12/18 06:56 [place]speth # (Auto) 0.8 K/uL (0.0-0.8) 11/12/18 06:56 Eos # (Auto) 0.2 K/uL (0.0-0.7) 11/12/18 06:56 Baso # (Auto) 0.0 K/uL (0.0-0.2) 11/12/18 06:56 Neutrophils % (Manual) 85 % (50-75) H 11/09/18 17:32 Band Neutrophils % 10 % (0-2) H 11/09/18 17:32 Lymphocytes % (Manual) 1 % (20-40) L 11/09/18 17:32 Monocytes % (Manual) 4 % (0-10) 11/09/18 17:32 Platelet Estimate Normal (NORMAL) 11/09/18 17:32 Microcytosis (manual) Slight 11/09/18 17:32 Rouleaux Slight 11/09/18 17:32 Sodium 132 mmol/L (132-148) 11/12/18 06:56 Potassium 3.9 mmol/L (3.6-5.2) 11/12/18 06:56 Chloride 102 mmol/L (98-107) 11/12/18 06:56 Carbon Dioxide 24 mmol/L (22-30) 11/12/18 06:56 Anion Gap 10 (10-20) 11/12/18 06:56 BUN 13 mg/dL (9-20) 11/12/18 06:56 Creatinine 1.1 mg/dL (0.8-1.5) 11/12/18 06:56 Est GFR ( Amer) > 60 11/12/18 06:56 Est GFR (Non-Af Amer) > 60 11/12/18 06:56 Random Glucose 122 mg/dL (75-110) H 11/12/18 06:56 Calcium 8.7 mg/dl (8.6-10.4) 11/12/18 06:56 Phosphorus 1.6 mg/dL (2.5-4.5) L 11/12/18 06:56 Magnesium 2.2 mg/dL (1.6-2.3) 11/12/18 06:56 Total Bilirubin 1.9 mg/dL (0.2-1.3) H 11/12/18 06:56 AST 35 U/L (17-59) 11/12/18 06:56 ALT 9 U/L (21-72) L D 11/12/18 06:56 Alkaline Phosphatase 73 U/L (38-126) 11/12/18 06:56 Total Protein 7.1 g/dL (6.3-8.3) 11/12/18 06:56 Albumin 3.9 g/dL (3.5-5.0) 11/12/18 06:56 Globulin 3.2 gm/dL (2.2-3.9) 11/12/18 06:56 Albumin/Globulin Ratio 1.2 (1.0-2.1) 11/12/18 06:56 Amylase 130 U/L (30-110) H D 11/14/18 08:00 Lipase 569 U/L (23-300) H 11/14/18 08:00 Alpha Fetoprotein 2.2 ng/mL (0.0-7.5) 11/10/18 17:01 Carcinoembryonic Ag 2.4 ng/mL (0-3.0) 11/10/18 14:01 CA 19-9 Antigen 10.6 U/mL (0-37) 11/10/18 14:01 Discharge Plan - Follow Up Plan Condition: GOOD Disposition: HOME/ ROUTINE Instructions: Pancreatitis (DC) Additional Instructions: follow up in the office in 1 week continue with home meds/ discuss in the office / bring all meds to the office advance diet slowly Referrals: Hermes Faith MD [Staff Provider] -
--- NOTE | 2018-11-15 05:11 | DS ---
The patient is for discharge. DISCHARGE DIAGNOSES: 1. Pancreatitis due to hypertriglyceridemia. 2. Hypertriglyceridemia. HISTORY OF PRESENT ILLNESS: A 53-year-old male with history of hyperglyceridemia, multiple episodes of pancreatitis, came in because of abdominal pain, nausea and vomiting, was started on n.p.o., IV fluids, amylase, lipase, and he was started on diet after symptom resolution. He did well and he is for discharge. Hermes Faith MD
== END 2018-11-14 17:03 | disposition home or self-care (01) | DRG 566 ==
LOC: C.ER 15:41 → C.3T 18:43 → OBSVTOIN 11-10 22:35
PROVIDERS: ADMIT Internal Medicine; ATTEND Internal Medicine
DX: E78.1 Pure hyperglyceridemia (principal); K85.90 Acute pancreatitis without necrosis or infection, unspecified; E86.0 Dehydration; I10 Essential (primary) hypertension; Z91.11 Patient's noncompliance with dietary regimen